=== PATIENT | male | born 1945 | race Caucasian/White ===

== ENCOUNTER 2020-04-25 17:29 | Inpatient (IN) | payer MEDICARE, BC ==
[2020-04-25] MEDS ORDERED: Ondansetron 4 MG/2 ML SDV IVPUSH PRN (17:50)
[2020-04-25] MEDS: Albuterol/Ipratropium 4 GM Inhalation Spray INH SCH ×2 (18:36→22:07)
[2020-04-25] MEDS: Dexamethasone 4 MG Tab PO SCH ×2 (18:36→18:43)
--- NOTE | 2020-04-25 18:40 | PCM.HP.2 ---
<Britany Linton - Last Filed: 04/25/20 18:54> H&P History of Present Illness - General Date of Service: 04/25/20 Admit Problem/Dx: Admission Diagnosis/Problem Admission Diagnosis/Problem Hypoxia Source of Information: Patient History Limitations: Reports: No Limitations - History of Present Illness Initial Comments - Free Text/Narative: Pt is a 74 y/o Gentleman with a PMH of HTN, DM, HLD. and Hypothyroidism. Last week Sunday he was seen In [place] for respiratory symptoms of cough, s.o.b and some chest tightness. Pt was then sent home with 10 days of Dexamethasone, and an inhaler. Over the week, symptoms persisted, the cough kept getting worst described as being productive with yellow much/ phlegm. Denies any fever, chills, body aches. States they has recently visited their teenage grandchildren whom also have been found to be covid +. Pt states his symptoms are worst with laying down and relieved with sitting up. States anything he tried taking was not helping with his cough until he was put on Oxyegn on admission since he was found to be sating at 82-84% on R.A Onset of Symptoms: Reports: Gradual Duration of Symptoms: Reports: Day(s): Severity: Moderate Context: Reports: Sick Contact - Related Data Allergies/Adverse Reactions: Allergies Allergy/AdvReac Type Severity Reaction Status Date / Time No Known Allergies Allergy Verified 04/25/20 17:45 Home Medications: Home Meds Albuterol Sulfate [Albuterol Sulfate Hfa] 2 inh IH Q4H PRN 04/25/20 [History] Codeine/guaiFENesin [Robitussin AC] 04/25/20 [History] Indomethacin 50 mg PO BID 04/25/20 [History] Levothyroxine 25 mcg PO ACBREAKFAST 04/25/20 [History] Metoprolol Succinate [Toprol XL] 25 mg PO DAILY 04/25/20 [History] Niacin 500 mg PO DAILY 04/25/20 [History] dexAMETHasone [Dexamethasone] 2 mg PO DAILY 04/25/20 [History] gemfibroziL [Gemfibrozil] 600 mg PO BID 04/25/20 [History] lisinopriL [Lisinopril] 10 mg PO DAILY 04/25/20 [History] metFORMIN [Glucophage] 500 mg PO BID 04/25/20 [History] Pantoprazole [ProTONIX] 40 mg PO DAILY 04/26/20 [History] Rosuvastatin Calcium 20 mg PO DAILY 04/26/20 [History] Past Medical History Cardiovascular History: Reports: CAD, Heart Valve Replacement, High Cholesterol, Hypertension Gastrointestinal History: Reports: Hepatitis Other Gastrointestinal History: Hepatitis C in 1968 Musculoskeletal History: Reports: Fracture, Other (See Below) Other Musculoskeletal History: Ankle fracture Endocrine/Metabolic History: Reports: Diabetes, Type II, Other (See Below) Other Endocrine/Metabolic History: Borderline Type II Diabetes - 500mg Metformin BID - Infectious Disease History Infectious Disease History: Reports: Chicken Pox, Hepatitis C, Measles - Past Surgical History HEENT Surgical History: Reports: Adenoidectomy, Tonsillectomy Cardiovascular Surgical History: Reports: Coronary Artery Bypass Other Cardiovascular Surgeries/Procedures: Mar 2013 GI Surgical History: Reports: Appendectomy, Colonoscopy, EGD Social & Family History - Tobacco Use Tobacco Use Status *Q: Never Tobacco User Second Hand Smoke Exposure: No - Caffeine Use Caffeine Use: Reports: Coffee - Recreational Drug Use Recreational Drug Use: No H&P Review of Systems - Review of Systems: Review Of Systems: See Below General: Reports: No Symptoms HEENT: Reports: No Symptoms Pulmonary: Reports: Shortness of Breath, Cough, Sputum. Denies: Pleuritic Chest Pain Cardiovascular: Reports: Dyspnea on Exertion. Denies: Chest Pain, Lightheadedness Gastrointestinal: Reports: No Symptoms Genitourinary: Reports: No Symptoms Musculoskeletal: Reports: No Symptoms Skin: Reports: No Symptoms Psychiatric: Reports: No Symptoms Neurological: Reports: No Symptoms Hematologic/Lymphatic: Reports: No Symptoms Immunologic: Reports: No Symptoms Exam - Exam Exam: See Below - Vital Signs Vital Signs: Last Vital Signs Temp 97.5 F 04/25/20 17:34 Pulse 60 04/25/20 17:34 Resp 20 04/25/20 17:34 BP 127/66 04/25/20 17:34 Pulse Ox 90 L 04/25/20 17:34 Weight: 85.275 kg - Exam Quality Assessment: Supplemental Oxygen, DVT Prophylaxis General: Alert, Oriented, Cooperative, Mild Distress HEENT: Conjunctiva Clear, EOMI, Pupils Equal, Pupils Reactive Neck: Supple, Trachea Midline, JVD. No: Lymphadenopathy Lungs: Crackles (fine crackles throughout, good eat entry b/l) Cardiovascular: Regular Rate, Regular Rhythm, Normal S1, Normal S2 GI/Abdominal Exam: Normal Bowel Sounds, Soft, Non-Tender Back Exam: Normal Inspection Extremities: Normal Inspection, Normal Range of Motion, No Pedal Edema, Normal Capillary Refill Peripheral Pulses: 2+: Dorsalis Pedis (L), Dorsalis Pedis (R) Skin: Warm, Dry, Intact Neurological: Cranial Nerves Intact, Reflexes Equal Bilateral, Strength Equal Bilateral, Normal Speech, Sensation Intact. No: Focal Deficit Neuro Extensive - Mental Status: Alert, Oriented x3, Normal Mood/Affect, Normal Cognition Neuro Extensive - Motor, Sensory, Reflexes: CN II-XII Intact, Normal Gait, Normal Reflexes DTR: 2+: Bicep (L), Bicep (R), Patella (L), Patella (R) Psychiatric: Alert, Normal Affect, Normal Mood Sepsis Event Note - Evaluation Sepsis Screening Result: No Definite Risk - Focused Exam Vital Signs: Vital Signs Temp Pulse Resp BP Pulse Ox 04/25/20 17:34 97.5 F 60 20 127/66 90 L - Problem List (1) COVID-19 SNOMED Code(s): 033866937 ICD Code: U07.1 - COVID-19 Status: Acute Current Visit: Yes Problem List Initiated/Reviewed/Updated: Yes Orders Last 24hrs: Active Orders 24 hr Category Date Time Status Patient Status [ADT] Routine ADT 04/25/20 17:51 Active Ambulate [RC] ASDIRECTED Care 04/25/20 17:50 Active Oxygen Therapy [RC] PRN Care 04/25/20 17:51 Active RT Post Treatment Assessment [RC] Click to Edit Care 04/25/20 17:57 Active RT Pre-Treatment Assessment [RC] Click to Edit Care 04/25/20 17:57 Active Telemetry Monitoring [Cardiac Monitoring] [RC] . Care 04/25/20 18:26 Active DIRECTED VTE/DVT Education [RC] PER UNIT ROUTINE Care 04/25/20 17:51 Active Vital Signs [RC] Q4H Care 04/25/20 17:51 Active Heart Healthy Diet [DIET] Diet 04/25/20 Dinner Active CXR [Chest 1V Frontal] [CR] Routine Exams 04/25/20 17:58 Ordered ABO/RH TYPE [BBK] Routine Lab 04/25/20 18:21 Ordered CBC WITH AUTO DIFF [HEME] Stat Lab 04/25/20 17:55 Ordered COMPREHENSIVE METABOLIC PN,CMP [CHEM] Stat Lab 04/25/20 17:55 Ordered D Dimer [D-DIMER QUANTITATIVE] [COAG] Routine Lab 04/25/20 17:56 Ordered FRESH FROZEN PLASMA [BBK] Routine Lab 04/25/20 18:21 Ordered LACTIC ACID,WHOLE BLOOD [BG] Routine Lab 04/25/20 18:23 Ordered MAGNESIUM [CHEM] Stat Lab 04/25/20 17:55 Ordered PHOSPHORUS [CHEM] Stat Lab 04/25/20 17:55 Ordered Acetaminophen [TylenoL] Med 04/25/20 17:50 Active 650 mg PO Q4H PRN Albuterol/Ipratropium [Combivent Respimat] Med 04/25/20 18:00 Active See Dose Instructions INH Q4H Enoxaparin [Lovenox] Med 04/25/20 21:00 Pending 40 mg SUBCUT BEDTIME Levofloxacin/Dextrose 5%-Water [Levaquin in D5W 750 MG/ Med 04/25/20 18:30 Ordered 150 ML] 750 mg Premix Bag 1 bag IV Q24H Ondansetron [Zofran] Med 04/25/20 17:50 Active 4 mg IVPUSH Q4H PRN Remdesivir (Eua) [Remdesivir (EUA)] 100 mg Med 04/26/20 18:45 Ordered Sodium Chloride 0.9% [Normal Saline] 100 ml IV Q24H Remdesivir (Eua) [Remdesivir (EUA)] 200 mg Med 04/25/20 18:30 Ordered Sodium Chloride 0.9% [Normal Saline] 250 ml IV ONETIME dexAMETHasone Med 04/25/20 18:00 Active 6 mg PO DAILY@1800 metFORMIN [Glucophage] Med 04/25/20 21:00 Pending 500 mg PO BID Resuscitation Status Routine Resus Stat 04/25/20 17:50 Ordered Medication Orders Acetaminophen (Tylenol) 650 mg PO Q4H PRN PRN Reason: Pain (Mild 1-3)/fever Albuterol/Ipratropium (Combivent Respimat) 0 gm INH Q4H ANGEL Dexamethasone (Dexamethasone) 6 mg PO DAILY@1800 ANGEL Enoxaparin Sodium (Lovenox) 40 mg SUBCUT BEDTIME ANGEL Levofloxacin/Dextrose 750 mg/ (Premix) 150 mls @ 100 mls/hr IV Q24H ANGEL Remdesivir 200 mg/ Sodium (Chloride) 250 mls @ 250 mls/hr IV ONETIME ONE Stop: 04/25/20 18:31 Remdesivir 100 mg/ Sodium (Chloride) 100 mls @ 100 mls/hr IV Q24H ANGEL Stop: 04/29/20 19:44 Metformin HCl (Glucophage) 500 mg PO BID ANGEL Ondansetron HCl (Zofran) 4 mg IVPUSH Q4H PRN PRN Reason: Nausea/Vomiting Assessment/Plan Comment:: Pt is a 74 y/o M admitted with AHRF 2/2 COVID 19 1. COVID 19: Remdesivir, consented for convalescent plasma, discussed that this is a trial and pt understood the risk and benefits. Will order and transfuse 1 unit today. Dexamethasone 6mg daily for 10 days, Combivent Q4HRTT scheduled, Supplement oxygen with goal >92%, wean as tolerated. Enoxaparin 40mg SubQ Q24H 2. PMHx HTN, HLD, DM and Hypothyroidism, will continue with home medications. Provide patient with Heart healthy diet, Put put on low dose sliding scale and GI ppx with pantoprazole 40mg daily. <Obed Dorman - Last Filed: 04/29/20 23:05> H&P History of Present Illness - General Admit Problem/Dx: Admission Diagnosis/Problem Admission Diagnosis/Problem Hypoxia Exam - Vital Signs Vital Signs: Last Vital Signs Temp 36.3 C 04/29/20 22:00 Pulse 66 04/29/20 20:00 Resp 23 H 04/29/20 22:00 BP 109/64 04/29/20 22:00 Pulse Ox 93 L 04/29/20 22:00 - Patient Data Lab Results Last 24 hrs: Laboratory Results - last 24 hr 04/29/20 04/29/20 04/29/20 Range/Units :11 11:20 06:48 WBC 7.84 (4.0-11.0) K/uL RBC 4.51 (4.50-5.90) M/uL Hgb 13.2 (13.0-17.0) g/dL Hct 38.3 (38.0-50.0) % MCV 84.9 (80.0-98.0) fL MCH 29.3 (27.0-32.0) pg MCHC 34.5 (31.0-37.0) g/dL RDW Std Deviation 41.0 (28.0-62.0) fl RDW Coeff of [place] 13 (11.0-15.0) % Plt Count 208 (150-400) K/uL MPV 8.80 (7.40-12.00) fL Neut % (Auto) 87.4 H (48.0-80.0) % Lymph % (Auto) 6.1 L (16.0-40.0) % [place] % (Auto) 6.4 (0.0-15.0) % Eos % (Auto) 0.1 (0.0-7.0) % Baso % (Auto) 0.0 (0.0-1.5) % Neut # (Auto) 6.9 H (1.4-5.7) K/uL Lymph # (Auto) 0.5 L (0.6-2.4) K/uL [place] # (Auto) 0.5 (0.0-0.8) K/uL Eos # (Auto) 0.0 (0.0-0.7) K/uL Baso # (Auto) 0.0 (0.0-0.1) K/uL Nucleated RBC % 0.0 /100WBC Nucleated RBCs # 0 K/uL ABG pH (7.35-7.45) ABG pCO2 (35-45) mmHG ABG pO2 (75-100) mmHG ABG HCO3 (22-26) mEq/L ABG Total CO2 ABG Base Excess (-2.0-2.0) Sodium 132 L (136-148) mmol/L Potassium 4.4 (3.5-5.1) mmol/L Chloride 98 (98-107) mmol/L Carbon Dioxide 23.0 (21.0-32.0) mmol/L BUN 27 H (7.0-18.0) mg/dL Creatinine 1.2 (0.8-1.3) mg/dL Est Cr Clr Drug Dosing 56.61 mL/min Estimated GFR (MDRD) 59.3 ml/min Glucose 191 H (74-106) mg/dL POC Glucose 163 H (60-110) mg/dL Calcium 9.0 (8.5-10.1) mg/dL Total Bilirubin 0.7 (0.2-1.0) mg/dL AST 11 L (15-37) IU/L ALT 14 (14-63) IU/L Alkaline Phosphatase 61 (46-116) U/L Total Protein 7.3 (6.4-8.2) g/dL Albumin 2.7 L (3.4-5.0) g/dL Globulin 4.6 H (2.6-4.0) g/dL Albumin/Globulin Ratio 0.6 L (0.9-1.6) 04/29/20 04/29/20 04/29/20 Range/Units 11:52 17:14 21:15 WBC (4.0-11.0) K/uL RBC (4.50-5.90) M/uL Hgb (13.0-17.0) g/dL Hct (38.0-50.0) % MCV (80.0-98.0) fL MCH (27.0-32.0) pg MCHC (31.0-37.0) g/dL RDW Std Deviation (28.0-62.0) fl RDW Coeff of Et[place] (11.0-15.0) % Plt Count (150-400) K/uL MPV (7.40-12.00) fL Neut % (Auto) (48.0-80.0) % Lymph % (Auto) (16.0-40.0) % [place] % (Auto) (0.0-15.0) % Eos % (Auto) (0.0-7.0) % Baso % (Auto) (0.0-1.5) % Neut # (Auto) (1.4-5.7) K/uL Lymph # (Auto) (0.6-2.4) K/uL [place] # (Auto) (0.0-0.8) K/uL Eos # (Auto) (0.0-0.7) K/uL Baso # (Auto) (0.0-0.1) K/uL Nucleated RBC % /100WBC Nucleated RBCs # K/uL ABG pH 7.478 H (7.35-7.45) ABG pCO2 28 L (35-45) mmHG ABG pO2 67 L (75-100) mmHG ABG HCO3 21 L (22-26) mEq/L ABG Total CO2 18.3 ABG Base Excess -1.4 (-2.0-2.0) Sodium (136-148) mmol/L Potassium (3.5-5.1) mmol/L Chloride (98-107) mmol/L Carbon Dioxide (21.0-32.0) mmol/L BUN (7.0-18.0) mg/dL Creatinine (0.8-1.3) mg/dL Est Cr Clr Drug Dosing mL/min Estimated GFR (MDRD) ml/min Glucose (74-106) mg/dL POC Glucose 268 H 163 H (60-110) mg/dL Calcium (8.5-10.1) mg/dL Total Bilirubin (0.2-1.0) mg/dL AST (15-37) IU/L ALT (14-63) IU/L Alkaline Phosphatase (46-116) U/L Total Protein (6.4-8.2) g/dL Albumin (3.4-5.0) g/dL Globulin (2.6-4.0) g/dL Albumin/Globulin Ratio (0.9-1.6) Result Diagrams: 04/29/20 05:20 04/29/20 05:20 Sepsis Event Note - Focused Exam Vital Signs: Vital Signs Temp Pulse Resp BP Pulse Ox 04/29/20 22:00 36.3 C 23 H 109/64 93 L 04/29/20 21:30 22 H 100/55 L 92 L 04/29/20 20:00 36.4 C 66 20 122/71 90 L 04/29/20 16:00 36.8 C 59 L 18 106/61 93 L 04/29/20 11:43 36.4 C 58 L 18 114/77 95 Orders Last 24hrs: Active Orders 24 hr Category Date Time Status Transfer Patient (Change bed) [ADT] Routine ADT 04/29/20 20:38 Ordered Cardiac Monitoring [RC] Q8H Care 04/29/20 21:05 Active RT BiPAP/CPAP [RC] ASDIRECTED Care 04/29/20 21:36 Active CBC WITH AUTO DIFF [HEME] AM Lab 04/30/20 05:11 Ordered CBC WITH AUTO DIFF [HEME] AM Lab 05/01/20 05:11 Ordered CBC WITH AUTO DIFF [HEME] AM Lab 05/02/20 05:11 Ordered CBC WITH AUTO DIFF [HEME] AM Lab 05/03/20 05:11 Ordered COMPREHENSIVE METABOLIC PN,CMP [CHEM] AM Lab 04/30/20 05:11 Ordered COMPREHENSIVE METABOLIC PN,CMP [CHEM] AM Lab 05/01/20 05:11 Ordered COMPREHENSIVE METABOLIC PN,CMP [CHEM] AM Lab 05/02/20 05:11 Ordered COMPREHENSIVE METABOLIC PN,CMP [CHEM] AM Lab 05/03/20 05:11 Ordered Pantoprazole [ProTONIX] Med 04/29/20 07:30 Active 40 mg PO ACBREAKFAST Medication Orders Acetaminophen (Tylenol) 650 mg PO Q4H PRN PRN Reason: Pain (Mild 1-3)/fever Last Admin: 04/28/20 17:42 Dose: 650 mg Documented by: DEVIN Albuterol/Ipratropium (Combivent Respimat) 0 gm INH Q4H ANGEL Last Admin: 04/29/20 22:19 Dose: 1 puff Documented by: Admin: 04/29/20 17:06 Dose: 1 puff Documented by: Admin: 04/29/20 13:14 Dose: 1 puff Documented by: Admin: 04/29/20 09:58 Dose: 1 puff Documented by: Admin: 04/29/20 08:49 Dose: 1 puff Documented by: Admin: 04/29/20 06:10 Dose: Not Given Documented by: Admin: 04/29/20 02:12 Dose: 1 puff Documented by: Admin: 04/28/20 22:09 Dose: 1 puff Documented by: Admin: 04/28/20 17:41 Dose: 1 puff Documented by: Admin: 04/28/20 14:08 Dose: 1 puff Documented by: Admin: 04/28/20 09:44 Dose: 1 puff Documented by: Admin: 04/28/20 06:37 Dose: 1 puff Documented by: Admin: 04/28/20 02:56 Dose: 1 puff Documented by: Admin: 04/27/20 21:37 Dose: 1 puff Documented by: Admin: 04/27/20 17:09 Dose: 1 puff Documented by: Admin: 04/27/20 13:17 Dose: 1 puff Documented by: Admin: 04/27/20 09:14 Dose: 1 puff Documented by: Admin: 04/27/20 06:26 Dose: 1 puff Documented by: Admin: 04/27/20 03:25 Dose: 1 puff Documented by: Admin: 04/26/20 23:10 Dose: 1 puff Documented by: Admin: 04/26/20 17:17 Dose: 1 puff Documented by: Admin: 04/26/20 13:47 Dose: 1 puff Documented by: Admin: 04/26/20 09:18 Dose: 1 puff Documented by: Admin: 04/26/20 06:11 Dose: 1 puff Documented by: Admin: 04/26/20 01:40 Dose: Not Given Documented by: Admin: 04/25/20 22:07 Dose: 1 puff Documented by: Admin: 04/25/20 18:36 Dose: 1 puff Documented by: ELIEL Benzonatate (Tessalon Perles) 100 mg PO TID PRN PRN Reason: Cough Last Admin: 04/29/20 20:12 Dose: 100 mg Documented by: Admin: 04/26/20 17:35 Dose: 100 mg Documented by: TIANNA Dexamethasone (Dexamethasone) 6 mg PO DAILY@1800 ANGEL Last Admin: 04/29/20 18:36 Dose: 6 mg Documented by: Admin: 04/28/20 17:39 Dose: 6 mg Documented by: Admin: 04/27/20 18:04 Dose: 6 mg Documented by: Admin: 04/26/20 17:36 Dose: 6 mg Documented by: Admin: 04/25/20 18:43 Dose: Not Given Documented by: ELIEL Dextrose/Water (Dextrose 50% In Water) 50 ml IV ASDIRECTED PRN PRN Reason: Hypoglycemia Enoxaparin Sodium (Lovenox) 40 mg SUBCUT BEDTIME ANGEL Last Admin: 04/29/20 20:12 Dose: 40 mg Documented by: Admin: 04/28/20 20:19 Dose: 40 mg Documented by: Admin: 04/27/20 21:37 Dose: 40 mg Documented by: Admin: 04/26/20 21:00 Dose: 40 mg Documented by: HOLLY Gemfibrozil (Lopid) 600 mg PO BID [facility] Last Admin: 04/29/20 20:11 Dose: 600 mg Documented by: Admin: 04/29/20 09:33 Dose: 600 mg Documented by: Admin: 04/28/20 20:19 Dose: 600 mg Documented by: Admin: 04/28/20 09:28 Dose: 600 mg Documented by: Admin: 04/27/20 21:37 Dose: 600 mg Documented by: Admin: 04/27/20 12:11 Dose: 600 mg Documented by: Admin: 04/26/20 21:01 Dose: 600 mg Documented by: Admin: 04/26/20 09:27 Dose: 600 mg Documented by: BISI Glucagon (Glucagen) 1 mg IM ASDIRECTED PRN PRN Reason: Hypoglycemia Levofloxacin/Dextrose 750 mg/ (Premix) 150 mls @ 100 mls/hr IV Q24H [facility] Admin: 04/29/20 20:08 Dose: 100 mls/hr Documented by: Infusion: 04/28/20 22:13 Dose: 100 mls/hr Documented by: Admin: 04/28/20 20:43 Dose: 100 mls/hr Documented by: Infusion: 04/27/20 23:07 Dose: 100 mls/hr Documented by: Admin: 04/27/20 21:37 Dose: 100 mls/hr Documented by: Infusion: 04/26/20 22:24 Dose: 100 mls/hr Documented by: Admin: 04/26/20 20:54 Dose: 100 mls/hr Documented by: Infusion: 04/25/20 23:34 Dose: 100 mls/hr Documented by: Admin: 04/25/20 22:04 Dose: 100 mls/hr Documented by: RAMOS Insulin Aspart (Novolog) 0 unit SUBCUT TIDAC ANGEL; Protocol Last Admin: 04/29/20 18:39 Dose: 1 unit Documented by: Admin: 04/29/20 13:58 Dose: 3 unit Documented by: Admin: 04/29/20 09:32 Dose: 1 unit Documented by: Admin: 04/28/20 17:38 Dose: Not Given Documented by: Admin: 04/28/20 17:36 Dose: Not Given Documented by: Admin: 04/28/20 09:29 Dose: 1 unit Documented by: Admin: 04/27/20 21:02 Dose: Not Given Documented by: Admin: 04/27/20 11:20 Dose: 1 unit Documented by: Admin: 04/27/20 07:12 Dose: Not Given Documented by: Admin: 04/26/20 19:13 Dose: Not Given Documented by: Admin: 04/26/20 13:09 Dose: 1 unit Documented by: Admin: 04/26/20 09:26 Dose: Not Given Documented by: BISI Levothyroxine Sodium (Levothyroxine) 25 mcg PO ACBREAKFAST [facility] Last Admin: 04/29/20 06:45 Dose: 25 mcg Documented by: Admin: 04/28/20 06:50 Dose: 25 mcg Documented by: Admin: 04/27/20 06:33 Dose: 25 mcg Documented by: HOLLY Lisinopril (Prinivil) 10 mg PO DAILY [facility] Last Admin: 04/29/20 09:33 Dose: 10 mg Documented by: Admin: 04/28/20 09:27 Dose: 10 mg Documented by: Admin: 04/27/20 09:00 Dose: Not Given Documented by: Admin: 04/26/20 09:27 Dose: 10 mg Documented by: BISI Melatonin (Melatonin) 3 mg PO BEDTIME PRN PRN Reason: Sleep Last Admin: 04/29/20 20:11 Dose: 3 mg Documented by: Admin: 04/28/20 22:09 Dose: 3 mg Documented by: BELLO Niacin (Niacin) 500 mg PO DAILY [facility] Last Admin: 04/29/20 09:32 Dose: 500 mg Documented by: Admin: 04/28/20 09:28 Dose: 500 mg Documented by: Admin: 04/27/20 12:11 Dose: 500 mg Documented by: Admin: 04/26/20 12:42 Dose: 500 mg Documented by: BISI Ondansetron HCl (Zofran) 4 mg IVPUSH Q4H PRN PRN Reason: Nausea/Vomiting Pantoprazole Sodium (Protonix) 40 mg PO ACBREAKFAST [facility] Last Admin: 04/29/20 06:45 Dose: 40 mg Documented by: EBLLO Assessment/Plan Comment:: I have seen and examined the patient independently and discussed management plan with the resident, I agree with the residents note unless otherwise specified in my note.
[2020-04-25] MEDS ORDERED: Glucagon,Human Recombinant 1 MG Vial IM PRN (18:59)
[2020-04-25] MEDS ORDERED: 50% Dextrose in Water 50 ML Syringe IV PRN (18:59)
[2020-04-25] MEDS ORDERED: REMDESIVIR 200 MG in Sodium Chloride 0.9% 250 ML IV ONE (19:00)
[2020-04-25 19:23] LABS: CARBON DIOXIDE,CO2 24.3 mmol/L (21.0-32.0); POTASSIUM,K 4.7 mmol/L (3.5-5.1)
[2020-04-25] MEDS ORDERED: Lactated Ringers 1,000 ML IV ONE (19:23)
--- NOTE | 2020-04-25 19:32 | CR ---
Indication: COVID positive, dyspnea Technique: Chest 1 view Comparison: None Findings/Impression: Cardiac size within normal limits. Status post median sternotomy. Patchy opacities at the left lung base and in the right mid and lower lung edwards concerning for infection. No pneumothorax or effusion. No acute osseous abnormality. Dictated by Lara Anderson MD @ Apr 25 2020 7:30PM Signed by Dr. Lara Anderson @ Apr 25 2020 7:31PM
[2020-04-25] MEDS ORDERED: metFORMIN 500 MG Tab PO SCH (21:00)
[2020-04-25] MEDS ORDERED: Enoxaparin 40 MG/0.4 ML Syringe SUBCUT SCH (21:00)
[2020-04-25] MEDS: Levofloxacin/Dextrose 5%-Water 750 MG in Premix Bag 1 BAG IV SCH (22:04)
[2020-04-26] MEDS: Albuterol/Ipratropium 4 GM Inhalation Spray INH SCH ×6 (01:40→23:10)
[2020-04-26 08:52] LABS: BLOOD UREA NITROGEN,BUN 21 mg/dL (7.0-18.0); CARBON DIOXIDE,CO2 28.5 mmol/L (21.0-32.0); CHLORIDE,CL 99 mmol/L (98-107); GLUCOSE RANDOM 120 mg/dL (74-106); POTASSIUM,K 4.7 mmol/L (3.5-5.1); SODIUM,NA 136 mmol/L (136-148)
[2020-04-26] MEDS: Insulin Aspart 100 Units/ML 3 ML Pen SUBCUT SCH ×3 (09:26→19:13)
[2020-04-26] MEDS: Lisinopril 10 MG Tab PO SCH (09:27)
[2020-04-26] MEDS: Gemfibrozil 600 MG Tab PO SCH ×2 (09:27→21:01)
[2020-04-26] MEDS: Metoprolol Succinate 25 MG Tab.ER PO SCH (09:27)
[2020-04-26] MEDS: Niacin 500 MG Tab PO SCH (12:42)
--- NOTE | 2020-04-26 13:10 | PCM.PN ---
- General Info Date of Service: 04/26/20 Admission Dx/Problem (Free Text): Admission Diagnosis/Problem Admission Diagnosis/Problem Hypoxia Subjective Update: Pt is a a 74 y/o M who was transferred yesterday from [place] for COVID 19. Was tested and diagnosed 5 days prior. came in for worsenjing s.o.b and worsening cough. Was sating 80-88 on R.A. Was admitted last night on 9 L oxygen. Was doing well overnight, this morning required additional oxygen when he got up and moving to go to the bathroom. Is scheduled to get 1 unit plasma of convalescent plasma today. States he is feeling the same as yesterday. Functional Status: Reports: New Symptoms - Review of Systems General: Reports: No Symptoms HEENT: Reports: No Symptoms Pulmonary: Reports: No Symptoms Cardiovascular: Reports: No Symptoms Gastrointestinal: Reports: No Symptoms Genitourinary: Reports: No Symptoms Musculoskeletal: Reports: No Symptoms Skin: Reports: No Symptoms Neurological: Reports: No Symptoms Psychiatric: Reports: No Symptoms - Patient Data Vitals - Most Recent: Last Vital Signs Temp 98.1 F 04/26/20 12:39 Pulse 57 L 04/26/20 12:39 Resp 17 04/26/20 12:39 BP 122/64 04/26/20 12:39 Pulse Ox 91 L 04/26/20 12:39 Weight - Most Recent: 188 lb I&O - Last 24 Hours: Intake & Output 04/25/20 04/26/20 04/26/20 22:59 06:59 14:59 Intake Total 2400 Output Total 1675 Balance 725 Lab Results Last 24 Hours: Laboratory Results - last 24 hr 04/25/20 04/25/20 04/25/20 Range/Units 18:46 18:46 18:46 WBC 8.79 (4.0-11.0) K/uL RBC 4.82 (4.50-5.90) M/uL Hgb 14.0 (13.0-17.0) g/dL Hct 41.3 (38.0-50.0) % MCV 85.7 (80.0-98.0) fL MCH 29.0 (27.0-32.0) pg MCHC 33.9 (31.0-37.0) g/dL RDW Std Deviation 42.5 (28.0-62.0) fl RDW Coeff of Etelvina 14 (11.0-15.0) % Plt Count 197 (150-400) K/uL MPV 9.00 (7.40-12.00) fL Neut % (Auto) 92.7 H (48.0-80.0) % Lymph % (Auto) 4.1 L (16.0-40.0) % [place] % (Auto) 3.2 (0.0-15.0) % Eos % (Auto) 0.0 (0.0-7.0) % Baso % (Auto) 0.0 (0.0-1.5) % Neut # (Auto) 8.2 H (1.4-5.7) K/uL Lymph # (Auto) 0.4 L (0.6-2.4) K/uL [place] # (Auto) 0.3 (0.0-0.8) K/uL Eos # (Auto) 0.0 (0.0-0.7) K/uL Baso # (Auto) 0.0 (0.0-0.1) K/uL Nucleated RBC % 0.0 /100WBC Nucleated RBCs # 0 K/uL D-Dimer, Quantitative 0.76 H (0.0-0.50) mg/L FEU Lactate (0.20-2.00) mmol/L Sodium 132 L (136-148) mmol/L Potassium 4.7 (3.5-5.1) mmol/L Chloride 97 L (98-107) mmol/L Carbon Dioxide 24.3 (21.0-32.0) mmol/L BUN 22 H (7.0-18.0) mg/dL Creatinine 1.2 (0.8-1.3) mg/dL Est Cr Clr Drug Dosing 56.61 mL/min Estimated GFR (MDRD) 59.3 ml/min Glucose 234 H (74-106) mg/dL POC Glucose (60-110) mg/dL Calcium 8.8 (8.5-10.1) mg/dL Phosphorus 3.6 (2.6-4.7) mg/dL Magnesium 2.1 (1.8-2.4) mg/dL Total Bilirubin 0.6 (0.2-1.0) mg/dL AST 16 (15-37) IU/L ALT 21 (14-63) IU/L Alkaline Phosphatase 65 (46-116) U/L Troponin I (0.000-0.056) ng/mL Total Protein 7.6 (6.4-8.2) g/dL Albumin 3.2 L (3.4-5.0) g/dL Globulin 4.4 H (2.6-4.0) g/dL Albumin/Globulin Ratio 0.7 L (0.9-1.6) Blood Type 04/25/20 04/25/20 04/25/20 Range/Units 18:46 18:46 18:46 WBC (4.0-11.0) K/uL RBC (4.50-5.90) M/uL Hgb (13.0-17.0) g/dL Hct (38.0-50.0) % MCV (80.0-98.0) fL MCH (27.0-32.0) pg MCHC (31.0-37.0) g/dL RDW Std Deviation (28.0-62.0) fl RDW Coeff of Etelvina (11.0-15.0) % Plt Count (150-400) K/uL MPV (7.40-12.00) fL Neut % (Auto) (48.0-80.0) % Lymph % (Auto) (16.0-40.0) % [place] % (Auto) (0.0-15.0) % Eos % (Auto) (0.0-7.0) % Baso % (Auto) (0.0-1.5) % Neut # (Auto) (1.4-5.7) K/uL Lymph # (Auto) (0.6-2.4) K/uL [place] # (Auto) (0.0-0.8) K/uL Eos # (Auto) (0.0-0.7) K/uL Baso # (Auto) (0.0-0.1) K/uL Nucleated RBC % /100WBC Nucleated RBCs # K/uL D-Dimer, Quantitative (0.0-0.50) mg/L FEU Lactate 2.3 H* (0.20-2.00) mmol/L Sodium (136-148) mmol/L Potassium (3.5-5.1) mmol/L Chloride (98-107) mmol/L Carbon Dioxide (21.0-32.0) mmol/L BUN (7.0-18.0) mg/dL Creatinine (0.8-1.3) mg/dL Est Cr Clr Drug Dosing mL/min Estimated GFR (MDRD) ml/min Glucose (74-106) mg/dL POC Glucose (60-110) mg/dL Calcium (8.5-10.1) mg/dL Phosphorus (2.6-4.7) mg/dL Magnesium (1.8-2.4) mg/dL Total Bilirubin (0.2-1.0) mg/dL AST (15-37) IU/L ALT (14-63) IU/L Alkaline Phosphatase (46-116) U/L Troponin I < 0.050 (0.000-0.056) ng/mL Total Protein (6.4-8.2) g/dL Albumin (3.4-5.0) g/dL Globulin (2.6-4.0) g/dL Albumin/Globulin Ratio (0.9-1.6) Blood Type B POSITIVE 04/25/20 04/26/20 04/26/20 Range/Units 23:25 06:10 08:11 WBC 8.48 (4.0-11.0) K/uL RBC 4.57 (4.50-5.90) M/uL Hgb 13.5 (13.0-17.0) g/dL Hct 39.4 (38.0-50.0) % MCV 86.2 (80.0-98.0) fL MCH 29.5 (27.0-32.0) pg MCHC 34.3 (31.0-37.0) g/dL RDW Std Deviation 42.3 (28.0-62.0) fl RDW Coeff of Etelvina 13 (11.0-15.0) % Plt Count 180 (150-400) K/uL MPV 9.20 (7.40-12.00) fL Neut % (Auto) 82.0 H (48.0-80.0) % Lymph % (Auto) 9.2 L (16.0-40.0) % [place] % (Auto) 8.8 (0.0-15.0) % Eos % (Auto) 0.0 (0.0-7.0) % Baso % (Auto) 0.0 (0.0-1.5) % Neut # (Auto) 7.0 H (1.4-5.7) K/uL Lymph # (Auto) 0.8 (0.6-2.4) K/uL [place] # (Auto) 0.8 (0.0-0.8) K/uL Eos # (Auto) 0.0 (0.0-0.7) K/uL Baso # (Auto) 0.0 (0.0-0.1) K/uL Nucleated RBC % 0.0 /100WBC Nucleated RBCs # 0 K/uL D-Dimer, Quantitative (0.0-0.50) mg/L FEU Lactate 1.9 (0.20-2.00) mmol/L Sodium (136-148) mmol/L Potassium (3.5-5.1) mmol/L Chloride (98-107) mmol/L Carbon Dioxide (21.0-32.0) mmol/L BUN (7.0-18.0) mg/dL Creatinine (0.8-1.3) mg/dL Est Cr Clr Drug Dosing mL/min Estimated GFR (MDRD) ml/min Glucose (74-106) mg/dL POC Glucose 122 H (60-110) mg/dL Calcium (8.5-10.1) mg/dL Phosphorus (2.6-4.7) mg/dL Magnesium (1.8-2.4) mg/dL Total Bilirubin (0.2-1.0) mg/dL AST (15-37) IU/L ALT (14-63) IU/L Alkaline Phosphatase (46-116) U/L Troponin I (0.000-0.056) ng/mL Total Protein (6.4-8.2) g/dL Albumin (3.4-5.0) g/dL Globulin (2.6-4.0) g/dL Albumin/Globulin Ratio (0.9-1.6) Blood Type 04/26/20 Range/Units 08:11 WBC (4.0-11.0) K/uL RBC (4.50-5.90) M/uL Hgb (13.0-17.0) g/dL Hct (38.0-50.0) % MCV (80.0-98.0) fL MCH (27.0-32.0) pg MCHC (31.0-37.0) g/dL RDW Std Deviation (28.0-62.0) fl RDW Coeff of Etelvina (11.0-15.0) % Plt Count (150-400) K/uL MPV (7.40-12.00) fL Neut % (Auto) (48.0-80.0) % Lymph % (Auto) (16.0-40.0) % [place] % (Auto) (0.0-15.0) % Eos % (Auto) (0.0-7.0) % Baso % (Auto) (0.0-1.5) % Neut # (Auto) (1.4-5.7) K/uL Lymph # (Auto) (0.6-2.4) K/uL [place] # (Auto) (0.0-0.8) K/uL Eos # (Auto) (0.0-0.7) K/uL Baso # (Auto) (0.0-0.1) K/uL Nucleated RBC % /100WBC Nucleated RBCs # K/uL D-Dimer, Quantitative (0.0-0.50) mg/L FEU Lactate (0.20-2.00) mmol/L Sodium 136 (136-148) mmol/L Potassium 4.7 (3.5-5.1) mmol/L Chloride 99 (98-107) mmol/L Carbon Dioxide 28.5 (21.0-32.0) mmol/L BUN 21 H (7.0-18.0) mg/dL Creatinine 1.1 (0.8-1.3) mg/dL Est Cr Clr Drug Dosing 61.76 mL/min Estimated GFR (MDRD) > 60.0 ml/min Glucose 120 H (74-106) mg/dL POC Glucose (60-110) mg/dL Calcium 8.9 (8.5-10.1) mg/dL Phosphorus (2.6-4.7) mg/dL Magnesium (1.8-2.4) mg/dL Total Bilirubin 0.6 (0.2-1.0) mg/dL AST 15 (15-37) IU/L ALT 18 (14-63) IU/L Alkaline Phosphatase 65 (46-116) U/L Troponin I (0.000-0.056) ng/mL Total Protein 7.5 (6.4-8.2) g/dL Albumin 3.0 L (3.4-5.0) g/dL Globulin 4.5 H (2.6-4.0) g/dL Albumin/Globulin Ratio 0.7 L (0.9-1.6) Blood Type Med Orders - Current: Current Medications Acetaminophen (Tylenol) 650 mg PO Q4H PRN PRN Reason: Pain (Mild 1-3)/fever Albuterol/Ipratropium (Combivent Respimat) 0 gm INH Q4H [facility] Last Admin: 04/26/20 09:18 Dose: 1 puff Documented by: Dexamethasone (Dexamethasone) 6 mg PO DAILY@1800 [facility] Last Admin: 04/25/20 18:43 Dose: Not Given Documented by: Dextrose/Water (Dextrose 50% In Water) 50 ml IV ASDIRECTED PRN PRN Reason: Hypoglycemia Enoxaparin Sodium (Lovenox) 40 mg SUBCUT BEDTIME [facility] Gemfibrozil (Lopid) 600 mg PO BID [facility] Last Admin: 04/26/20 09:27 Dose: 600 mg Documented by: Glucagon (Glucagen) 1 mg IM ASDIRECTED PRN PRN Reason: Hypoglycemia Levofloxacin/Dextrose 750 mg/ (Premix) 150 mls @ 100 mls/hr IV Q24H [facility] Last Admin: 04/25/20 22:04 Dose: 100 mls/hr Documented by: Remdesivir 100 mg/ Sodium (Chloride) 100 mls @ 100 mls/hr IV Q24H [facility] Stop: 04/29/20 19:59 Insulin Aspart (Novolog) 0 unit SUBCUT TIDAC [facility]; Protocol Last Admin: 04/26/20 09:26 Dose: Not Given Documented by: Levothyroxine Sodium (Levothyroxine) 25 mcg PO ACBREAKFAST [facility] Lisinopril (Prinivil) 10 mg PO DAILY [facility] Last Admin: 04/26/20 09:27 Dose: 10 mg Documented by: Metoprolol Succinate (Toprol Xl) 25 mg PO DAILY [facility] Last Admin: 04/26/20 09:27 Dose: 25 mg Documented by: Niacin (Niacin) 500 mg PO DAILY [facility] Last Admin: 04/26/20 12:42 Dose: 500 mg Documented by: Ondansetron HCl (Zofran) 4 mg IVPUSH Q4H PRN PRN Reason: Nausea/Vomiting Discontinued Medications Enoxaparin Sodium (Lovenox) 40 mg SUBCUT BEDTIME [facility] Stop: 04/25/20 21:01 Last Admin: 04/25/20 22:10 Dose: 40 mg Documented by: Remdesivir 200 mg/ Sodium (Chloride) 250 mls @ 250 mls/hr IV ONETIME ONE Stop: 04/25/20 19:59 Last Admin: 04/25/20 22:06 Dose: 250 mls/hr Documented by: Lactated Ringer's (Ringers, Lactated) 1,000 mls @ 999 mls/hr IV .BOLUS ONE Stop: 04/25/20 20:23 Last Admin: 04/25/20 22:03 Dose: 999 mls/hr Documented by: Metformin HCl (Glucophage) 500 mg PO BID [facility] - Exam Quality Assessment: Supplemental Oxygen, DVT Prophylaxis General: Alert, Oriented, Cooperative HEENT: Pupils Equal, Pupils Reactive, EOMI, Mucous Membr. Moist/[place] Neck: Supple, Trachea Midline. No: No JVD, No Thyromegaly, Lymphadenopathy Lungs: Normal Respiratory Effort, Crackles (noted in the lower lobes bilaterally ) Cardiovascular: Regular Rate, Regular Rhythm, No Murmurs GI/Abdominal Exam: Normal Bowel Sounds, Soft, Non-Tender Extremities: Normal Inspection, Normal Range of Motion, No Pedal Edema, Normal Capillary Refill Peripheral Pulses: 2+: Dorsalis Pedis (L), Dorsalis Pedis (R) Skin: Warm, Dry Neurological: No New Focal Deficit Psy/Mental Status: Alert, Normal Affect, Normal Mood Sepsis Event Note - Evaluation Sepsis Screening Result: No Definite Risk - Focused Exam Vital Signs: Vital Signs Temp Pulse Pulse Resp BP BP Pulse Ox 04/26/20 12:39 98.1 F 57 L 17 122/64 91 L 04/26/20 09:27 60 130/71 04/26/20 08:00 97.2 F 55 L 19 129/72 92 L 04/26/20 04:00 98.1 F 58 L 20 134/87 95 - Problem List & Annotations (1) COVID-19 SNOMED Code(s): 289938900 Code(s): U07.1 - COVID-19 Status: Acute Current Visit: Yes (2) Elevated BUN SNOMED Code(s): 371294712 Code(s): R79.9 - ABNORMAL FINDING OF BLOOD CHEMISTRY, UNSPECIFIED Status: Acute Current Visit: Yes - Problem List Review Problem List Initiated/Reviewed/Updated: Yes - My Orders Last 24 Hours: My Active Orders 04/25/20 18:26 Telemetry Monitoring [Cardiac Monitoring] [RC] Q8H 04/25/20 18:46 ABO/RH TYPE [BBK] Routine FRESH FROZEN PLASMA [BBK] Routine 04/25/20 18:49 Transfuse Fresh Frozen Plasma [COMM] Urgent 04/25/20 18:59 Blood Glucose Check, Bedside [RC] TIDAC Dextrose 50% in Water 50 ml IV ASDIRECTED PRN Glucagon,Human Recombinant [GlucaGen] 1 mg IM ASDIRECTED PRN 04/25/20 20:00 Levofloxacin/Dextrose 5%-Water [Levaquin in D5W 750 MG/150 ML] 750 mg Premix Bag 1 bag IV Q24H 04/26/20 07:30 Insulin Aspart [NovoLOG] See Protocol SUBCUT TIDAC 04/26/20 08:00 Codeine/guaiFENesin [Robitussin AC] DOSE UNIT RTE FREQ 04/26/20 09:00 Metoprolol Succinate [Toprol XL] 25 mg PO DAILY [facility] 500 mg PO DAILY gemfibroziL [Lopid] 600 mg PO BID lisinopriL [Prinivil] 10 mg PO DAILY 04/26/20 19:00 Remdesivir (Eua) [Remdesivir (EUA)] 100 mg Sodium Chloride 0.9% [Normal Salin e] 100 ml IV Q24H 04/27/20 05:11 CBC WITH AUTO DIFF [HEME] AM COMPREHENSIVE METABOLIC PN,CMP [CHEM] AM 04/27/20 07:30 Levothyroxine 25 mcg PO ACBREAKFAST 04/28/20 05:11 CBC WITH AUTO DIFF [HEME] AM COMPREHENSIVE METABOLIC PN,CMP [CHEM] AM 04/29/20 05:11 CBC WITH AUTO DIFF [HEME] AM COMPREHENSIVE METABOLIC PN,CMP [CHEM] AM - Plan Plan:: Pt is a 74 y/o M admitted with [facility] 2/2 COVID 19 1. COVID 19: Remalyseivir, consented for convalescent plasma, discussed that this is a trial and pt understood the risk and benefits. Will order and transfuse 1 unit today. Dexamethasone 6mg daily for 10 days, Combivent Q4HRTT scheduled, Supplement oxygen with goal >92%, wean as tolerated. Enoxaparin 40mg SubQ Q24H. Started on Levaquin yesterday with sloght increased wcb count. WBC's normal today, appears to be afebrile. Will continue to monitor closely. 2. Mild hyponatremia: resolved;136 today 3.Elevated BUN: Improved: 21, continue to monitor daily with a.m cmp. 4. PMHx HTN, HLD, DM and Hypothyroidism, will continue with home medications. Provide patient with Heart healthy diet, Put put on low dose sliding scale and GI ppx with pantoprazole 40mg daily.
[2020-04-26] MEDS: Benzonatate 100 MG Cap PO PRN (17:35)
[2020-04-26] MEDS: Dexamethasone 4 MG Tab PO SCH (17:36)
[2020-04-26] MEDS: REMDESIVIR 100 MG in Sodium Chloride 0.9% 100 ML IV SCH (19:14)
[2020-04-26] MEDS: Levofloxacin/Dextrose 5%-Water 750 MG in Premix Bag 1 BAG IV SCH (20:54)
[2020-04-26] MEDS: Enoxaparin 40 MG/0.4 ML Syringe SUBCUT SCH (21:00)
[2020-04-27] MEDS: Albuterol/Ipratropium 4 GM Inhalation Spray INH SCH ×6 (03:25→21:37)
[2020-04-27] MEDS: Levothyroxine 25 MCG Tab PO SCH (06:33)
[2020-04-27] MEDS: Insulin Aspart 100 Units/ML 3 ML Pen SUBCUT SCH ×3 (07:12→21:02)
[2020-04-27 07:16] LABS: BLOOD UREA NITROGEN,BUN 23 mg/dL (7.0-18.0); CARBON DIOXIDE,CO2 24.4 mmol/L (21.0-32.0); CHLORIDE,CL 98 mmol/L (98-107); GLUCOSE RANDOM 150 mg/dL (74-106); POTASSIUM,K 4.4 mmol/L (3.5-5.1); SODIUM,NA 133 mmol/L (136-148)
[2020-04-27] MEDS: Lisinopril 10 MG Tab PO SCH (09:00)
--- NOTE | 2020-04-27 09:21 | PCM.PN ---
- General Info Date of Service: 04/27/20 Admission Dx/Problem (Free Text): Admission Diagnosis/Problem Admission Diagnosis/Problem Hypoxia Subjective Update: Pt is a a 74 y/o M who was transferred yesterday from [place] for COVID 19 for worsening of s.o.b and cough. Was weaned to 8L yesterday, did doing well overnight. This morning states that he is feeling much better overall. Will get another unit of Convalescent plasma today. Denies any pleuritic chest pain, s.o.b, fever, chills or cough this morning. Functional Status: Reports: Tolerating Diet, Incentive Spirometry. Denies: New Symptoms - Review of Systems General: Reports: No Symptoms HEENT: Reports: No Symptoms Pulmonary: Denies: Shortness of Breath (comfortable on 8 L), Pleuritic Chest Pain, Cough, Wheezing Cardiovascular: Reports: No Symptoms. Denies: Chest Pain, Lightheadedness Gastrointestinal: Reports: No Symptoms Genitourinary: Reports: No Symptoms Musculoskeletal: Reports: No Symptoms Skin: Reports: No Symptoms Neurological: Reports: No Symptoms Psychiatric: Reports: No Symptoms - Patient Data Vitals - Most Recent: Last Vital Signs Temp 97 F 04/27/20 07:11 Pulse 58 L 04/27/20 07:11 Resp 20 04/27/20 07:11 BP 110/59 L 04/27/20 07:11 Pulse Ox 91 L 04/27/20 07:11 Weight - Most Recent: 188 lb I&O - Last 24 Hours: Intake & Output 04/26/20 04/27/20 04/27/20 22:59 06:59 14:59 Intake Total 950 650 Output Total 900 850 Balance 50 -200 Lab Results Last 24 Hours: Laboratory Results - last 24 hr 04/25/20 04/26/20 04/26/20 Range/Units 18:46 08:11 14:02 WBC (4.0-11.0) K/uL RBC (4.50-5.90) M/uL Hgb (13.0-17.0) g/dL Hct (38.0-50.0) % MCV (80.0-98.0) fL MCH (27.0-32.0) pg MCHC (31.0-37.0) g/dL RDW Std Deviation (28.0-62.0) fl RDW Coeff of Etelvina (11.0-15.0) % Plt Count (150-400) K/uL MPV (7.40-12.00) fL Neut % (Auto) (48.0-80.0) % Lymph % (Auto) (16.0-40.0) % [place] % (Auto) (0.0-15.0) % Eos % (Auto) (0.0-7.0) % Baso % (Auto) (0.0-1.5) % Neut # (Auto) (1.4-5.7) K/uL Lymph # (Auto) (0.6-2.4) K/uL [place] # (Auto) (0.0-0.8) K/uL Eos # (Auto) (0.0-0.7) K/uL Baso # (Auto) (0.0-0.1) K/uL Nucleated RBC % /100WBC Nucleated RBCs # K/uL Sodium 136 (136-148) mmol/L Potassium 4.7 (3.5-5.1) mmol/L Chloride 99 (98-107) mmol/L Carbon Dioxide 28.5 (21.0-32.0) mmol/L BUN 21 H (7.0-18.0) mg/dL Creatinine 1.1 (0.8-1.3) mg/dL Est Cr Clr Drug Dosing 61.76 mL/min Estimated GFR (MDRD) > 60.0 ml/min Glucose 120 H (74-106) mg/dL POC Glucose 187 H (60-110) mg/dL Calcium 8.9 (8.5-10.1) mg/dL Total Bilirubin 0.6 (0.2-1.0) mg/dL AST 15 (15-37) IU/L ALT 18 (14-63) IU/L Alkaline Phosphatase 65 (46-116) U/L Total Protein 7.5 (6.4-8.2) g/dL Albumin 3.0 L (3.4-5.0) g/dL Globulin 4.5 H (2.6-4.0) g/dL Albumin/Globulin Ratio 0.7 L (0.9-1.6) Blood Type B POSITIVE 11/02/20 11/03/20 11/03/20 Range/Units 18:40 06:28 06:28 WBC 7.55 (4.0-11.0) K/uL RBC 4.57 (4.50-5.90) M/uL Hgb 13.0 (13.0-17.0) g/dL Hct 39.3 (38.0-50.0) % MCV 86.0 (80.0-98.0) fL MCH 28.4 (27.0-32.0) pg MCHC 33.1 (31.0-37.0) g/dL RDW Std Deviation 42.6 (28.0-62.0) fl RDW Coeff of Etelvina 14 (11.0-15.0) % Plt Count 174 (150-400) K/uL MPV 9.00 (7.40-12.00) fL Neut % (Auto) 82.6 H (48.0-80.0) % Lymph % (Auto) 7.5 L (16.0-40.0) % [place] % (Auto) 9.8 (0.0-15.0) % Eos % (Auto) 0.1 (0.0-7.0) % Baso % (Auto) 0.0 (0.0-1.5) % Neut # (Auto) 6.2 H (1.4-5.7) K/uL Lymph # (Auto) 0.6 (0.6-2.4) K/uL [place] # (Auto) 0.7 (0.0-0.8) K/uL Eos # (Auto) 0.0 (0.0-0.7) K/uL Baso # (Auto) 0.0 (0.0-0.1) K/uL Nucleated RBC % 0.0 /100WBC Nucleated RBCs # 0 K/uL Sodium 133 L (136-148) mmol/L Potassium 4.4 (3.5-5.1) mmol/L Chloride 98 (98-107) mmol/L Carbon Dioxide 24.4 (21.0-32.0) mmol/L BUN 23 H (7.0-18.0) mg/dL Creatinine 1.1 (0.8-1.3) mg/dL Est Cr Clr Drug Dosing 61.76 mL/min Estimated GFR (MDRD) > 60.0 ml/min Glucose 150 H (74-106) mg/dL POC Glucose 114 H (60-110) mg/dL Calcium 8.8 (8.5-10.1) mg/dL Total Bilirubin 0.8 (0.2-1.0) mg/dL AST 19 (15-37) IU/L ALT 19 (14-63) IU/L Alkaline Phosphatase 60 (46-116) U/L Total Protein 7.4 (6.4-8.2) g/dL Albumin 2.9 L (3.4-5.0) g/dL Globulin 4.5 H (2.6-4.0) g/dL Albumin/Globulin Ratio 0.6 L (0.9-1.6) Blood Type Med Orders - Current: Current Medications Acetaminophen (Tylenol) 650 mg PO Q4H PRN PRN Reason: Pain (Mild 1-3)/fever Albuterol/Ipratropium (Combivent Respimat) 0 gm INH Q4H [facility] Last Admin: 04/27/20 06:26 Dose: 1 puff Documented by: Benzonatate (Tessalon Perles) 100 mg PO TID PRN PRN Reason: Cough Last Admin: 04/26/20 17:35 Dose: 100 mg Documented by: Dexamethasone (Dexamethasone) 6 mg PO DAILY@1800 [facility] Last Admin: 04/26/20 17:36 Dose: 6 mg Documented by: Dextrose/Water (Dextrose 50% In Water) 50 ml IV ASDIRECTED PRN PRN Reason: Hypoglycemia Enoxaparin Sodium (Lovenox) 40 mg SUBCUT BEDTIME [facility] Last Admin: 04/26/20 21:00 Dose: 40 mg Documented by: Gemfibrozil (Lopid) 600 mg PO BID [facility] Last Admin: 04/26/20 21:01 Dose: 600 mg Documented by: Glucagon (Glucagen) 1 mg IM ASDIRECTED PRN PRN Reason: Hypoglycemia Levofloxacin/Dextrose 750 mg/ (Premix) 150 mls @ 100 mls/hr IV Q24H [facility] Last Admin: 04/26/20 20:54 Dose: 100 mls/hr Documented by: Remdesivir 100 mg/ Sodium (Chloride) 100 mls @ 100 mls/hr IV Q24H [facility] Stop: 04/29/20 19:59 Last Admin: 11/02/20 19:14 Dose: 100 mls/hr Documented by: Insulin Aspart (Novolog) 0 unit SUBCUT TIDAC [facility]; Protocol Last Admin: 04/27/20 07:12 Dose: Not Given Documented by: Levothyroxine Sodium (Levothyroxine) 25 mcg PO ACBREAKFAST [facility] Last Admin: 04/27/20 06:33 Dose: 25 mcg Documented by: Lisinopril (Prinivil) 10 mg PO DAILY [facility] Last Admin: 04/26/20 09:27 Dose: 10 mg Documented by: Metoprolol Succinate (Toprol Xl) 25 mg PO DAILY [facility] Last Admin: 04/26/20 09:27 Dose: 25 mg Documented by: Niacin (Niacin) 500 mg PO DAILY [facility] Last Admin: 04/26/20 12:42 Dose: 500 mg Documented by: Ondansetron HCl (Zofran) 4 mg IVPUSH Q4H PRN PRN Reason: Nausea/Vomiting Discontinued Medications Enoxaparin Sodium (Lovenox) 40 mg SUBCUT BEDTIME [facility] Stop: 04/25/20 21:01 Last Admin: 04/25/20 22:10 Dose: 40 mg Documented by: Remdesivir 200 mg/ Sodium (Chloride) 250 mls @ 250 mls/hr IV ONETIME ONE Stop: 04/25/20 19:59 Last Admin: 04/25/20 22:06 Dose: 250 mls/hr Documented by: Lactated Ringer's (Ringers, Lactated) 1,000 mls @ 999 mls/hr IV .BOLUS ONE Stop: 04/25/20 20:23 Last Admin: 04/25/20 22:03 Dose: 999 mls/hr Documented by: Metformin HCl (Glucophage) 500 mg PO BID [facility] - Exam Quality Assessment: Supplemental Oxygen (8L) General: Alert, Oriented, Cooperative, No Acute Distress HEENT: Pupils Equal, Pupils Reactive, EOMI, Mucous Membr. Moist/[place] Neck: Supple, Trachea Midline, No JVD Lungs: Crackles (mid- lower lobes). No: Rales, Rhonchi, Stridor, Wheezing Cardiovascular: Regular Rate, Regular Rhythm, No Murmurs GI/Abdominal Exam: Normal Bowel Sounds, Soft, Non-Tender Extremities: Normal Inspection, Normal Range of Motion, No Pedal Edema, Normal Capillary Refill. No: Daron's Sign, Leg Pain, Redness Peripheral Pulses: 2+: Dorsalis Pedis (L), Dorsalis Pedis (R) Skin: Warm, Dry Neurological: No New Focal Deficit Psy/Mental Status: Alert, Normal Affect, Normal Mood Sepsis Event Note - Evaluation Sepsis Screening Result: No Definite Risk - Focused Exam Vital Signs: Vital Signs Temp Pulse Resp BP Pulse Ox 04/27/20 07:11 97 F 58 L 20 110/59 L 91 L 04/27/20 03:19 97 F 55 L 20 108/53 L 97 04/26/20 23:10 98.7 F 58 L 20 122/65 97 - Problem List & Annotations (1) COVID-19 SNOMED Code(s): 468057823 Code(s): U07.1 - COVID-19 Status: Acute Current Visit: Yes (2) Elevated BUN SNOMED Code(s): 696463552 Code(s): R79.9 - ABNORMAL FINDING OF BLOOD CHEMISTRY, UNSPECIFIED Status: Acute Current Visit: Yes - Problem List Review Problem List Initiated/Reviewed/Updated: Yes - My Orders Last 24 Hours: My Active Orders 04/26/20 09:00 Metoprolol Succinate [Toprol XL] 25 mg PO DAILY Niacin 500 mg PO DAILY gemfibroziL [Lopid] 600 mg PO BID lisinopriL [Prinivil] 10 mg PO DAILY 04/26/20 16:07 Benzonatate [Tessalon Perles] 100 mg PO TID PRN 04/26/20 19:00 Remdesivir (Eua) [Remdesivir (EUA)] 100 mg Sodium Chloride 0.9% [Normal Saline] 100 ml IV Q24H 04/27/20 07:30 Levothyroxine 25 mcg PO ACBREAKFAST 04/28/20 05:11 CBC WITH AUTO DIFF [HEME] AM COMPREHENSIVE METABOLIC PN,CMP [CHEM] AM 04/29/20 05:11 CBC WITH AUTO DIFF [HEME] AM COMPREHENSIVE METABOLIC PN,CMP [CHEM] AM - Plan Plan:: Pt is a 74 y/o M admitted with AHRF 2/2 COVID 19 1. COVID 19: Remdesivir, consented for convalescent plasma, discussed that this is a trial and pt understood the risk and benefits. Will order and transfuse 1 unit today. Dexamethasone 6mg daily for 10 days, Combivent Q4HRTT scheduled, Supplement oxygen with goal >92%, wean as tolerated. Enoxaparin 40mg SubQ Q24H. Started on Levaquin yesterday with sloght increased wcb count. WBC's normal today, appears to be afebrile. Will continue to monitor closely. 2. Elevated BUN: 23, continue to monitor daily with a.m cmp. 3. PMHx HTN, HLD, DM and Hypothyroidism, will continue with home medications. Provided patient with Heart healthy diet, Put ut on low dose sliding scale and GI ppx with pantoprazole 40mg daily.
[2020-04-27] MEDS: Metoprolol Succinate 25 MG Tab.ER PO SCH (11:21)
[2020-04-27] MEDS: Gemfibrozil 600 MG Tab PO SCH ×2 (12:11→21:37)
[2020-04-27] MEDS: Niacin 500 MG Tab PO SCH (12:11)
[2020-04-27] MEDS: REMDESIVIR 100 MG in Sodium Chloride 0.9% 100 ML IV SCH (16:25)
[2020-04-27] MEDS: Dexamethasone 4 MG Tab PO SCH (18:04)
[2020-04-27] MEDS: Levofloxacin/Dextrose 5%-Water 750 MG in Premix Bag 1 BAG IV SCH (21:37)
[2020-04-27] MEDS: Enoxaparin 40 MG/0.4 ML Syringe SUBCUT SCH (21:37)
[2020-04-28] MEDS: Albuterol/Ipratropium 4 GM Inhalation Spray INH SCH ×6 (02:56→22:09)
[2020-04-28] MEDS: Levothyroxine 25 MCG Tab PO SCH (06:50)
[2020-04-28 06:51] LABS: CARBON DIOXIDE,CO2 26.5 mmol/L (21.0-32.0); POTASSIUM,K 4.6 mmol/L (3.5-5.1)
[2020-04-28] MEDS: Metoprolol Succinate 25 MG Tab.ER PO SCH (09:27)
[2020-04-28] MEDS: Lisinopril 10 MG Tab PO SCH (09:27)
[2020-04-28] MEDS: Niacin 500 MG Tab PO SCH (09:28)
[2020-04-28] MEDS: Gemfibrozil 600 MG Tab PO SCH ×2 (09:28→20:19)
[2020-04-28] MEDS: Insulin Aspart 100 Units/ML 3 ML Pen SUBCUT SCH ×3 (09:29→17:38)
[2020-04-28] MEDS: Dexamethasone 4 MG Tab PO SCH (17:39)
[2020-04-28] MEDS: Acetaminophen 325 MG Tab PO PRN (17:42)
--- NOTE | 2020-04-28 17:45 | PCM.PN ---
- General Info Date of Service: 04/28/20 Admission Dx/Problem (Free Text): Admission Diagnosis/Problem Admission Diagnosis/Problem Hypoxia Subjective Update: Mason hammond is our 74 y/o M admitted for COVID 19. States he is feeling much better. States he does not el short of breath, the coughing and chest pain have resolved. We continue to wean him down to 5L's nasal cannula today. Functional Status: Reports: Tolerating Diet, Ambulating, Urinating, Incentive Spirometry - Review of Systems General: Reports: No Symptoms HEENT: Reports: No Symptoms Pulmonary: Reports: No Symptoms Cardiovascular: Reports: No Symptoms Gastrointestinal: Reports: No Symptoms Genitourinary: Reports: No Symptoms Musculoskeletal: Reports: No Symptoms Skin: Reports: No Symptoms Neurological: Reports: No Symptoms Psychiatric: Reports: No Symptoms - Patient Data Vitals - Most Recent: Last Vital Signs Temp 97.7 F 04/28/20 11:57 Pulse 61 04/28/20 11:57 Resp 18 04/28/20 11:57 BP 108/68 04/28/20 11:57 Pulse Ox 87 L 04/28/20 11:57 Weight - Most Recent: 188 lb I&O - Last 24 Hours: Intake & Output 04/28/20 04/28/20 04/28/20 06:59 14:59 22:59 Intake Total 1100 1380 Output Total 1000 1450 Balance 100 -70 Lab Results Last 24 Hours: Laboratory Results - last 24 hr 04/25/20 04/27/20 04/28/20 Range/Units 18:46 18:17 06:25 WBC 7.19 (4.0-11.0) K/uL RBC 4.74 (4.50-5.90) M/uL Hgb 13.8 (13.0-17.0) g/dL Hct 40.4 (38.0-50.0) % MCV 85.2 (80.0-98.0) fL MCH 29.1 (27.0-32.0) pg MCHC 34.2 (31.0-37.0) g/dL RDW Std Deviation 41.7 (28.0-62.0) fl RDW Coeff of Etelvina 13 (11.0-15.0) % Plt Count 218 (150-400) K/uL MPV 8.80 (7.40-12.00) fL Neut % (Auto) 86.9 H (48.0-80.0) % Lymph % (Auto) 6.5 L (16.0-40.0) % [place] % (Auto) 6.5 (0.0-15.0) % Eos % (Auto) 0.0 (0.0-7.0) % Baso % (Auto) 0.1 (0.0-1.5) % Neut # (Auto) 6.2 H (1.4-5.7) K/uL Lymph # (Auto) 0.5 L (0.6-2.4) K/uL [place] # (Auto) 0.5 (0.0-0.8) K/uL Eos # (Auto) 0.0 (0.0-0.7) K/uL Baso # (Auto) 0.0 (0.0-0.1) K/uL Nucleated RBC % 0.0 /100WBC Nucleated RBCs # 0 K/uL Sodium (136-148) mmol/L Potassium (3.5-5.1) mmol/L Chloride (98-107) mmol/L Carbon Dioxide (21.0-32.0) mmol/L BUN (7.0-18.0) mg/dL Creatinine (0.8-1.3) mg/dL Est Cr Clr Drug Dosing mL/min Estimated GFR (MDRD) ml/min Glucose (74-106) mg/dL POC Glucose 98 (60-110) mg/dL Calcium (8.5-10.1) mg/dL Total Bilirubin (0.2-1.0) mg/dL AST (15-37) IU/L ALT (14-63) IU/L Alkaline Phosphatase (46-116) U/L Total Protein (6.4-8.2) g/dL Albumin (3.4-5.0) g/dL Globulin (2.6-4.0) g/dL Albumin/Globulin Ratio (0.9-1.6) Blood Type B POSITIVE 04/28/20 04/28/20 04/28/20 Range/Units 06:25 06:48 17:33 WBC (4.0-11.0) K/uL RBC (4.50-5.90) M/uL Hgb (13.0-17.0) g/dL Hct (38.0-50.0) % MCV (80.0-98.0) fL MCH (27.0-32.0) pg MCHC (31.0-37.0) g/dL RDW Std Deviation (28.0-62.0) fl RDW Coeff of Etelvina (11.0-15.0) % Plt Count (150-400) K/uL MPV (7.40-12.00) fL Neut % (Auto) (48.0-80.0) % Lymph % (Auto) (16.0-40.0) % Spencer % (Auto) (0.0-15.0) % Eos % (Auto) (0.0-7.0) % Baso % (Auto) (0.0-1.5) % Neut # (Auto) (1.4-5.7) K/uL Lymph # (Auto) (0.6-2.4) K/uL Spencer # (Auto) (0.0-0.8) K/uL Eos # (Auto) (0.0-0.7) K/uL Baso # (Auto) (0.0-0.1) K/uL Nucleated RBC % /100WBC Nucleated RBCs # K/uL Sodium 133 L (136-148) mmol/L Potassium 4.6 (3.5-5.1) mmol/L Chloride 98 (98-107) mmol/L Carbon Dioxide 26.5 (21.0-32.0) mmol/L BUN 22 H (7.0-18.0) mg/dL Creatinine 1.2 (0.8-1.3) mg/dL Est Cr Clr Drug Dosing 56.61 mL/min Estimated GFR (MDRD) 59.3 ml/min Glucose 177 H (74-106) mg/dL POC Glucose 161 H 126 H (60-110) mg/dL Calcium 9.3 (8.5-10.1) mg/dL Total Bilirubin 0.9 (0.2-1.0) mg/dL AST 14 L (15-37) IU/L ALT 20 (14-63) IU/L Alkaline Phosphatase 66 (46-116) U/L Total Protein 7.9 (6.4-8.2) g/dL Albumin 3.1 L (3.4-5.0) g/dL Globulin 4.8 H (2.6-4.0) g/dL Albumin/Globulin Ratio 0.7 L (0.9-1.6) Blood Type Med Orders - Current: Current Medications Acetaminophen (Tylenol) 650 mg PO Q4H PRN PRN Reason: Pain (Mild 1-3)/fever Albuterol/Ipratropium (Combivent Respimat) 0 gm INH Q4H [facility] Last Admin: 04/28/20 14:08 Dose: 1 puff Documented by: Benzonatate (Tessalon Perles) 100 mg PO TID PRN PRN Reason: Cough Last Admin: 04/26/20 17:35 Dose: 100 mg Documented by: Dexamethasone (Dexamethasone) 6 mg PO DAILY@1800 [facility] Last Admin: 04/28/20 17:39 Dose: 6 mg Documented by: Dextrose/Water (Dextrose 50% In Water) 50 ml IV ASDIRECTED PRN PRN Reason: Hypoglycemia Enoxaparin Sodium (Lovenox) 40 mg SUBCUT BEDTIME [facility] Last Admin: 04/27/20 21:37 Dose: 40 mg Documented by: Gemfibrozil (Lopid) 600 mg PO BID [facility] Last Admin: 04/28/20 09:28 Dose: 600 mg Documented by: Glucagon (Glucagen) 1 mg IM ASDIRECTED PRN PRN Reason: Hypoglycemia Levofloxacin/Dextrose 750 mg/ (Premix) 150 mls @ 100 mls/hr IV Q24H [facility] Last Admin: 04/27/20 21:37 Dose: 100 mls/hr Documented by: Remdesivir 100 mg/ Sodium (Chloride) 100 mls @ 100 mls/hr IV Q24H [facility] Stop: 04/29/20 19:59 Last Admin: 04/27/20 16:25 Dose: 100 mls/hr Documented by: Insulin Aspart (Novolog) 0 unit SUBCUT TIDAC [facility]; Protocol Last Admin: 04/28/20 17:38 Dose: Not Given Documented by: Levothyroxine Sodium (Levothyroxine) 25 mcg PO ACBREAKFAST [facility] Last Admin: 04/28/20 06:50 Dose: 25 mcg Documented by: Lisinopril (Prinivil) 10 mg PO DAILY [facility] Last Admin: 04/28/20 09:27 Dose: 10 mg Documented by: Metoprolol Succinate (Toprol Xl) 25 mg PO DAILY [facility] Last Admin: 04/28/20 09:27 Dose: 25 mg Documented by: Niacin (Niacin) 500 mg PO DAILY [facility] Last Admin: 04/28/20 09:28 Dose: 500 mg Documented by: Ondansetron HCl (Zofran) 4 mg IVPUSH Q4H PRN PRN Reason: Nausea/Vomiting Discontinued Medications Enoxaparin Sodium (Lovenox) 40 mg SUBCUT BEDTIME [facility] Stop: 04/25/20 21:01 Last Admin: 04/25/20 22:10 Dose: 40 mg Documented by: Remdesivir 200 mg/ Sodium (Chloride) 250 mls @ 250 mls/hr IV ONETIME ONE Stop: 04/25/20 19:59 Last Admin: 04/25/20 22:06 Dose: 250 mls/hr Documented by: Lactated Ringer's (Ringers, Lactated) 1,000 mls @ 999 mls/hr IV .BOLUS ONE Stop: 04/25/20 20:23 Last Admin: 04/25/20 22:03 Dose: 999 mls/hr Documented by: Metformin HCl (Glucophage) 500 mg PO BID [facility] - Exam Quality Assessment: Supplemental Oxygen, DVT Prophylaxis General: Alert, Oriented, Cooperative, No Acute Distress HEENT: Pupils Equal, Pupils Reactive, EOMI, Mucous Membr. Moist/[place] Neck: Supple, Trachea Midline, No JVD Lungs: Clear to Auscultation, Normal Respiratory Effort. No: Crackles, Rales, Rhonchi, Rub, Stridor, Wheezing Cardiovascular: Regular Rate, Regular Rhythm, No Murmurs GI/Abdominal Exam: Normal Bowel Sounds, Non-Tender Extremities: Normal Inspection, Normal Range of Motion, No Pedal Edema, Normal Capillary Refill Peripheral Pulses: 2+: Dorsalis Pedis (L), Dorsalis Pedis (R) Skin: Warm, Dry Neurological: No New Focal Deficit Psy/Mental Status: Alert, Normal Affect, Normal Mood Sepsis Event Note - Evaluation Sepsis Screening Result: No Definite Risk - Focused Exam Vital Signs: Vital Signs Temp Pulse Pulse Resp BP BP Pulse Ox 04/28/20 11:57 97.7 F 61 18 108/68 87 L 04/28/20 09:27 82 130/83 04/28/20 08:00 97.2 F 82 18 130/83 88 L - Problem List & Annotations (1) COVID-19 SNOMED Code(s): 422280969 Code(s): U07.1 - COVID-19 Status: Acute Current Visit: Yes (2) Elevated BUN SNOMED Code(s): 091586717 Code(s): R79.9 - ABNORMAL FINDING OF BLOOD CHEMISTRY, UNSPECIFIED Status: Acute Current Visit: Yes - Problem List Review Problem List Initiated/Reviewed/Updated: Yes - My Orders Last 24 Hours: My Active Orders 04/28/20 08:10 May Shower [RC] ASDIRECTED 04/29/20 05:11 CBC WITH AUTO DIFF [HEME] AM COMPREHENSIVE METABOLIC PN,CMP [CHEM] AM - Plan Plan:: Pt is a 74 y/o M admitted with AHRF 2/2 COVID 19 1. COVID 19: Remdesivir, consented for convalescent plasma, discussed that this is a trial and pt understood the risk and benefits. Will order and transfuse 1 unit today. Dexamethasone 6mg daily for 10 days, Combivent Q4HRTT scheduled, Supplement oxygen with goal >92%, currently on 5 L's ; wean as tolerated. Enoxaparin 40mg SubQ Q24H. Continue on Levaquin with increased wcb count. WBC's normal today, appears to be afebrile. Will continue to monitor closely. 2. Elevated BUN: mildly improved 22, continue to monitor daily with a.m cmp. 3. PMHx HTN, HLD, DM and Hypothyroidism, will continue with home medications. Provided patient with Heart healthy diet, on low dose sliding scale and GI ppx with pantoprazole 40mg daily.
[2020-04-28] MEDS: REMDESIVIR 100 MG in Sodium Chloride 0.9% 100 ML IV SCH (19:30)
[2020-04-28] MEDS: Enoxaparin 40 MG/0.4 ML Syringe SUBCUT SCH (20:19)
[2020-04-28] MEDS: Levofloxacin/Dextrose 5%-Water 750 MG in Premix Bag 1 BAG IV SCH (20:43)
[2020-04-28] MEDS: Melatonin 3 MG Tab PO PRN (22:09)
[2020-04-29] MEDS: Albuterol/Ipratropium 4 GM Inhalation Spray INH SCH ×7 (02:12→22:19)
[2020-04-29 05:50] LABS: POTASSIUM,K 4.4 mmol/L (3.5-5.1)
[2020-04-29] MEDS: Pantoprazole 40 MG Tab.CR PO SCH (06:45)
[2020-04-29] MEDS: Levothyroxine 25 MCG Tab PO SCH (06:45)
[2020-04-29] MEDS: Niacin 500 MG Tab PO SCH (09:32)
[2020-04-29] MEDS: Insulin Aspart 100 Units/ML 3 ML Pen SUBCUT SCH ×3 (09:32→18:39)
[2020-04-29] MEDS: Gemfibrozil 600 MG Tab PO SCH ×2 (09:33→20:11)
[2020-04-29] MEDS: Lisinopril 10 MG Tab PO SCH (09:33)
[2020-04-29] MEDS: Metoprolol Succinate 25 MG Tab.ER PO SCH (09:33)
--- NOTE | 2020-04-29 12:35 | PCM.PN ---
- General Info Date of Service: 04/29/20 Admission Dx/Problem (Free Text): Admission Diagnosis/Problem Admission Diagnosis/Problem Hypoxia Subjective Update: Mason De Leon is our 74 y/o M admitted for COVID 19. States he is feeling exhausted, hasn't been able to sleep well since his pulse oximeter kept beeping as he kept desaturating to the 80's. Denies any fever, chills, pleuritic chest pain, or shortness of breath. He state he is just tired and not feeling well today. Feels increased weakness. Due to desaturations we have increased his O2 to 12 L's this morning. Functional Status: Reports: Tolerating Diet, Incentive Spirometry - Review of Systems General: Reports: Weakness, Fatigue. Denies: Chills, Night Sweats HEENT: Reports: No Symptoms Pulmonary: Reports: No Symptoms. Denies: Shortness of Breath, Pleuritic Chest Pain, Cough, Wheezing Cardiovascular: Denies: No Symptoms, Chest Pain Gastrointestinal: Reports: No Symptoms Genitourinary: Reports: No Symptoms Musculoskeletal: Reports: No Symptoms Skin: Reports: No Symptoms Neurological: Reports: No Symptoms Psychiatric: Reports: No Symptoms - Patient Data Vitals - Most Recent: Last Vital Signs Temp 97.5 F 04/29/20 11:43 Pulse 58 L 04/29/20 11:43 Resp 18 04/29/20 11:43 BP 114/77 04/29/20 11:43 Pulse Ox 95 04/29/20 11:43 Weight - Most Recent: 188 lb I&O - Last 24 Hours: Intake & Output 04/28/20 04/29/20 04/29/20 22:59 06:59 14:59 Intake Total 400 1050 Output Total 475 550 Balance -75 500 Lab Results Last 24 Hours: Laboratory Results - last 24 hr 04/28/20 04/29/20 04/29/20 Range/Units 17:33 05:20 05:20 WBC 7.84 (4.0-11.0) K/uL RBC 4.51 (4.50-5.90) M/uL Hgb 13.2 (13.0-17.0) g/dL Hct 38.3 (38.0-50.0) % MCV 84.9 (80.0-98.0) fL MCH 29.3 (27.0-32.0) pg MCHC 34.5 (31.0-37.0) g/dL RDW Std Deviation 41.0 (28.0-62.0) fl RDW Coeff of Etelvina 13 (11.0-15.0) % Plt Count 208 (150-400) K/uL MPV 8.80 (7.40-12.00) fL Neut % (Auto) 87.4 H (48.0-80.0) % Lymph % (Auto) 6.1 L (16.0-40.0) % [place] % (Auto) 6.4 (0.0-15.0) % Eos % (Auto) 0.1 (0.0-7.0) % Baso % (Auto) 0.0 (0.0-1.5) % Neut # (Auto) 6.9 H (1.4-5.7) K/uL Lymph # (Auto) 0.5 L (0.6-2.4) K/uL [place] # (Auto) 0.5 (0.0-0.8) K/uL Eos # (Auto) 0.0 (0.0-0.7) K/uL Baso # (Auto) 0.0 (0.0-0.1) K/uL Nucleated RBC % 0.0 /100WBC Nucleated RBCs # 0 K/uL Sodium 132 L (136-148) mmol/L Potassium 4.4 (3.5-5.1) mmol/L Chloride 98 (98-107) mmol/L Carbon Dioxide 23.0 (21.0-32.0) mmol/L BUN 27 H (7.0-18.0) mg/dL Creatinine 1.2 (0.8-1.3) mg/dL Est Cr Clr Drug Dosing 56.61 mL/min Estimated GFR (MDRD) 59.3 ml/min Glucose 191 H (74-106) mg/dL POC Glucose 126 H (60-110) mg/dL Calcium 9.0 (8.5-10.1) mg/dL Total Bilirubin 0.7 (0.2-1.0) mg/dL AST 11 L (15-37) IU/L ALT 14 (14-63) IU/L Alkaline Phosphatase 61 (46-116) U/L Total Protein 7.3 (6.4-8.2) g/dL Albumin 2.7 L (3.4-5.0) g/dL Globulin 4.6 H (2.6-4.0) g/dL Albumin/Globulin Ratio 0.6 L (0.9-1.6) 04/29/20 04/29/20 Range/Units 06:48 11:52 WBC (4.0-11.0) K/uL RBC (4.50-5.90) M/uL Hgb (13.0-17.0) g/dL Hct (38.0-50.0) % MCV (80.0-98.0) fL MCH (27.0-32.0) pg MCHC (31.0-37.0) g/dL RDW Std Deviation (28.0-62.0) fl RDW Coeff of Etelvina (11.0-15.0) % Plt Count (150-400) K/uL MPV (7.40-12.00) fL Neut % (Auto) (48.0-80.0) % Lymph % (Auto) (16.0-40.0) % [place] % (Auto) (0.0-15.0) % Eos % (Auto) (0.0-7.0) % Baso % (Auto) (0.0-1.5) % Neut # (Auto) (1.4-5.7) K/uL Lymph # (Auto) (0.6-2.4) K/uL [place] # (Auto) (0.0-0.8) K/uL Eos # (Auto) (0.0-0.7) K/uL Baso # (Auto) (0.0-0.1) K/uL Nucleated RBC % /100WBC Nucleated RBCs # K/uL Sodium (136-148) mmol/L Potassium (3.5-5.1) mmol/L Chloride (98-107) mmol/L Carbon Dioxide (21.0-32.0) mmol/L BUN (7.0-18.0) mg/dL Creatinine (0.8-1.3) mg/dL Est Cr Clr Drug Dosing mL/min Estimated GFR (MDRD) ml/min Glucose (74-106) mg/dL POC Glucose 163 H 268 H (60-110) mg/dL Calcium (8.5-10.1) mg/dL Total Bilirubin (0.2-1.0) mg/dL AST (15-37) IU/L ALT (14-63) IU/L Alkaline Phosphatase (46-116) U/L Total Protein (6.4-8.2) g/dL Albumin (3.4-5.0) g/dL Globulin (2.6-4.0) g/dL Albumin/Globulin Ratio (0.9-1.6) Med Orders - Current: Current Medications Acetaminophen (Tylenol) 650 mg PO Q4H PRN PRN Reason: Pain (Mild 1-3)/fever Last Admin: 04/28/20 17:42 Dose: 650 mg Documented by: Albuterol/Ipratropium (Combivent Respimat) 0 gm INH Q4H [facility] Last Admin: 04/29/20 09:58 Dose: 1 puff Documented by: Benzonatate (Tessalon Perles) 100 mg PO TID PRN PRN Reason: Cough Last Admin: 04/26/20 17:35 Dose: 100 mg Documented by: Dexamethasone (Dexamethasone) 6 mg PO DAILY@1800 [facility] Last Admin: 04/28/20 17:39 Dose: 6 mg Documented by: Dextrose/Water (Dextrose 50% In Water) 50 ml IV ASDIRECTED PRN PRN Reason: Hypoglycemia Enoxaparin Sodium (Lovenox) 40 mg SUBCUT BEDTIME [facility] Last Admin: 04/28/20 20:19 Dose: 40 mg Documented by: Gemfibrozil (Lopid) 600 mg PO BID [facility] Last Admin: 04/29/20 09:33 Dose: 600 mg Documented by: Glucagon (Glucagen) 1 mg IM ASDIRECTED PRN PRN Reason: Hypoglycemia Levofloxacin/Dextrose 750 mg/ (Premix) 150 mls @ 100 mls/hr IV Q24H [facility] Last Admin: 04/28/20 20:43 Dose: 100 mls/hr Documented by: Remdesivir 100 mg/ Sodium (Chloride) 100 mls @ 100 mls/hr IV Q24H [facility] Stop: 04/29/20 19:59 Last Admin: 04/28/20 19:30 Dose: 100 mls/hr Documented by: Insulin Aspart (Novolog) 0 unit SUBCUT TIDAC [facility]; Protocol Last Admin: 04/29/20 09:32 Dose: 1 unit Documented by: Levothyroxine Sodium (Levothyroxine) 25 mcg PO ACBREAKFAST [facility] Last Admin: 04/29/20 06:45 Dose: 25 mcg Documented by: Lisinopril (Prinivil) 10 mg PO DAILY [facility] Last Admin: 04/29/20 09:33 Dose: 10 mg Documented by: Melatonin (Melatonin) 3 mg PO BEDTIME PRN PRN Reason: Sleep Last Admin: 04/28/20 22:09 Dose: 3 mg Documented by: Niacin (Niacin) 500 mg PO DAILY [facility] Last Admin: 04/29/20 09:32 Dose: 500 mg Documented by: Ondansetron HCl (Zofran) 4 mg IVPUSH Q4H PRN PRN Reason: Nausea/Vomiting Pantoprazole Sodium (Protonix) 40 mg PO ACBREAKFAST [facility] Last Admin: 04/29/20 06:45 Dose: 40 mg Documented by: Discontinued Medications Enoxaparin Sodium (Lovenox) 40 mg SUBCUT BEDTIME [facility] Stop: 04/25/20 21:01 Last Admin: 04/25/20 22:10 Dose: 40 mg Documented by: Remdesivir 200 mg/ Sodium (Chloride) 250 mls @ 250 mls/hr IV ONETIME ONE Stop: 04/25/20 19:59 Last Admin: 04/25/20 22:06 Dose: 250 mls/hr Documented by: Lactated Ringer's (Ringers, Lactated) 1,000 mls @ 999 mls/hr IV .BOLUS ONE Stop: 04/25/20 20:23 Last Admin: 04/25/20 22:03 Dose: 999 mls/hr Documented by: Metformin HCl (Glucophage) 500 mg PO BID [facility] Metoprolol Succinate (Toprol Xl) 25 mg PO DAILY [facility] Last Admin: 04/29/20 09:33 Dose: 25 mg Documented by: - Exam Quality Assessment: Supplemental Oxygen, DVT Prophylaxis General: Alert, Oriented, Cooperative, No Acute Distress HEENT: Pupils Equal, Pupils Reactive, EOMI, Mucous Membr. Moist/[place] Neck: Supple, No JVD Lungs: Clear to Auscultation, Normal Respiratory Effort Cardiovascular: Regular Rate, Regular Rhythm, No Murmurs GI/Abdominal Exam: Normal Bowel Sounds, Soft, Non-Tender Extremities: Normal Inspection, Normal Range of Motion, No Pedal Edema, Normal Capillary Refill Sepsis Event Note - Evaluation Sepsis Screening Result: No Definite Risk - Focused Exam Vital Signs: Vital Signs Temp Pulse Pulse Resp BP BP Pulse Ox 04/29/20 11:43 97.5 F 58 L 18 114/77 95 04/29/20 09:33 60 106/66 04/29/20 08:55 106/66 04/29/20 08:00 97.1 F 58 L 18 109/46 L 87 L 04/29/20 03:54 97.6 F 56 L 18 111/65 93 L - Problem List & Annotations (1) COVID-19 SNOMED Code(s): 598165876 Code(s): U07.1 - COVID-19 Status: Acute Current Visit: Yes (2) Elevated BUN SNOMED Code(s): 379911791 Code(s): R79.9 - ABNORMAL FINDING OF BLOOD CHEMISTRY, UNSPECIFIED Status: Acute Current Visit: Yes - Problem List Review Problem List Initiated/Reviewed/Updated: Yes - My Orders Last 24 Hours: My Active Orders 04/29/20 07:30 Pantoprazole [ProTONIX] 40 mg PO ACBREAKFAST - Plan Plan:: Pt is a 74 y/o M admitted with AHRF 2/2 COVID 19 1. COVID 19: 5 today Olu, consented for convalescent plasma, discussed that this is a trial and pt understood the risk and benefits. Has received both units. Dexamethasone 6mg daily for 10 days, Combivent Q4HRTT scheduled, Supplement oxygen with goal >92%, currently on 12L's ;will wean as tolerated. Enoxaparin 40mg SubQ Q24H. Continue on Levaquin. WBC's normal today, appears to be afebrile. Will continue to monitor closely. 2. Fatigue: has not slept well, therefore will give melatonin at night 3. Elevated BUN: 27, continue to monitor daily with a.m cmp. 4. PMHx HTN, HLD, DM and Hypothyroidism, will continue with home medications. Provided patient with Heart healthy diet, on low dose sliding scale and GI ppx with pantoprazole 40mg daily.
--- NOTE | 2020-04-29 14:59 | CR ---
INDICATION: Hypoxia. COVID positive. TECHNIQUE: Chest 1 views COMPARISON: 04/25/2020. FINDINGS: Cardiovascular and mediastinum: Heart size and vasculature are normal in caliber and appearance. Lungs and pleural spaces: Ill-defined pulmonary infiltrates are present bilaterally, right lung greater than left. No effusions and no pneumothorax. Bones and soft tissues: No significant findings. IMPRESSION: Slight interval worsening of bilateral pneumonia, worse on the right. Dictated by Raghavendra Morton MD @ Apr 29 2020 2:55PM Signed by Dr. Raghavendra Morton @ Apr 29 2020 2:58PM
[2020-04-29] MEDS: Dexamethasone 4 MG Tab PO SCH (18:36)
[2020-04-29] MEDS: REMDESIVIR 100 MG in Sodium Chloride 0.9% 100 ML IV SCH (18:41)
[2020-04-29] MEDS: Levofloxacin/Dextrose 5%-Water 750 MG in Premix Bag 1 BAG IV SCH (20:08)
[2020-04-29] MEDS: Melatonin 3 MG Tab PO PRN (20:11)
[2020-04-29] MEDS: Benzonatate 100 MG Cap PO PRN (20:12)
[2020-04-29] MEDS: Enoxaparin 40 MG/0.4 ML Syringe SUBCUT SCH (20:12)
--- NOTE | 2020-04-30 01:05 | PCM.SN.2 ---
- Free Text/Narrative Note: Patient desatting to 80s on 15 liters NC. Patient transferred to ICU to initiate noninvasive ventilation. Patient reports feeling better on BIPAP, work of breathing has improved.
[2020-04-30] MEDS: Albuterol/Ipratropium 4 GM Inhalation Spray INH SCH ×6 (01:39→21:28)
[2020-04-30] MEDS: Levothyroxine 25 MCG Tab PO SCH (06:43)
[2020-04-30] MEDS: Pantoprazole 40 MG Tab.CR PO SCH (06:43)
[2020-04-30 06:47] LABS: POTASSIUM,K 4.7 mmol/L (3.5-5.1)
[2020-04-30] MEDS: Insulin Aspart 100 Units/ML 3 ML Pen SUBCUT SCH ×3 (08:34→17:43)
[2020-04-30] MEDS: Gemfibrozil 600 MG Tab PO SCH ×2 (08:37→20:15)
[2020-04-30] MEDS: Lisinopril 10 MG Tab PO SCH (08:37)
[2020-04-30] MEDS: Niacin 500 MG Tab PO SCH (08:40)
--- NOTE | 2020-04-30 09:08 | PCM.PN ---
- General Info Date of Service: 04/30/20 Admission Dx/Problem (Free Text): Admission Diagnosis/Problem Admission Diagnosis/Problem Hypoxia Subjective Update: Mason De Leon is our 74 y/o M admitted for COVID 19. Was transferred last night to the ICU due to increased oxygen needs. Was found to be requiring 15L and still not sating above the 80's. Since transfer was placed on Bipap with significant improvement in his saturations 94-97% on Fi02 80%. Says that he had much better sleep, feels overall more energy. Was very pleasant this morning and more optimistic in comparison to the day prior. Expressed that he was hungry and actually had a appetite this morning. Denies any fever, chills, pleuritic chest pain, or shortness of breath. Functional Status: Reports: Tolerating Diet, Incentive Spirometry - Review of Systems General: Reports: No Symptoms HEENT: Reports: No Symptoms, Glasses Pulmonary: Reports: No Symptoms Cardiovascular: Reports: No Symptoms Gastrointestinal: Reports: No Symptoms Genitourinary: Reports: No Symptoms Musculoskeletal: Reports: No Symptoms Skin: Reports: No Symptoms Neurological: Reports: No Symptoms Psychiatric: Reports: No Symptoms - Patient Data Vitals - Most Recent: Last Vital Signs Temp 98.5 F 04/30/20 05:00 Pulse 66 04/29/20 20:00 Resp 21 H 04/30/20 07:00 BP 117/66 04/30/20 08:37 Pulse Ox 91 L 04/30/20 07:00 Weight - Most Recent: 181 lb 9.6 oz I&O - Last 24 Hours: Intake & Output 04/29/20 04/30/20 04/30/20 22:59 06:59 14:59 Intake Total 920 500 Output Total 500 450 Balance 420 50 Lab Results Last 24 Hours: Laboratory Results - last 24 hr 04/29/20 04/29/20 04/29/20 Range/Units 11:52 17:14 21:15 WBC (4.0-11.0) K/uL RBC (4.50-5.90) M/uL Hgb (13.0-17.0) g/dL Hct (38.0-50.0) % MCV (80.0-98.0) fL MCH (27.0-32.0) pg MCHC (31.0-37.0) g/dL RDW Std Deviation (28.0-62.0) fl RDW Coeff of Etelvina (11.0-15.0) % Plt Count (150-400) K/uL MPV (7.40-12.00) fL Neut % (Auto) (48.0-80.0) % Lymph % (Auto) (16.0-40.0) % [place] % (Auto) (0.0-15.0) % Eos % (Auto) (0.0-7.0) % Baso % (Auto) (0.0-1.5) % Neut # (Auto) (1.4-5.7) K/uL Lymph # (Auto) (0.6-2.4) K/uL [place] # (Auto) (0.0-0.8) K/uL Eos # (Auto) (0.0-0.7) K/uL Baso # (Auto) (0.0-0.1) K/uL Nucleated RBC % /100WBC Nucleated RBCs # K/uL ABG pH 7.478 H (7.35-7.45) ABG pCO2 28 L (35-45) mmHG ABG pO2 67 L (75-100) mmHG ABG HCO3 21 L (22-26) mEq/L ABG Total CO2 18.3 ABG Base Excess -1.4 (-2.0-2.0) Sodium (136-148) mmol/L Potassium (3.5-5.1) mmol/L Chloride (98-107) mmol/L Carbon Dioxide (21.0-32.0) mmol/L BUN (7.0-18.0) mg/dL Creatinine (0.8-1.3) mg/dL Est Cr Clr Drug Dosing mL/min Estimated GFR (MDRD) ml/min Glucose (74-106) mg/dL POC Glucose 268 H 163 H (60-110) mg/dL Calcium (8.5-10.1) mg/dL Total Bilirubin (0.2-1.0) mg/dL AST (15-37) IU/L ALT (14-63) IU/L Alkaline Phosphatase (46-116) U/L Total Protein (6.4-8.2) g/dL Albumin (3.4-5.0) g/dL Globulin (2.6-4.0) g/dL Albumin/Globulin Ratio (0.9-1.6) 04/30/20 04/30/20 04/30/20 Range/Units 05:45 05:45 06:11 WBC 8.37 (4.0-11.0) K/uL RBC 4.77 (4.50-5.90) M/uL Hgb 13.7 (13.0-17.0) g/dL Hct 40.5 (38.0-50.0) % MCV 84.9 (80.0-98.0) fL MCH 28.7 (27.0-32.0) pg MCHC 33.8 (31.0-37.0) g/dL RDW Std Deviation 41.9 (28.0-62.0) fl RDW Coeff of Etelvina 13 (11.0-15.0) % Plt Count 225 (150-400) K/uL MPV 9.20 (7.40-12.00) fL Neut % (Auto) 89.2 H (48.0-80.0) % Lymph % (Auto) 3.7 L (16.0-40.0) % [place] % (Auto) 6.9 (0.0-15.0) % Eos % (Auto) 0.1 (0.0-7.0) % Baso % (Auto) 0.1 (0.0-1.5) % Neut # (Auto) 7.5 H (1.4-5.7) K/uL Lymph # (Auto) 0.3 L (0.6-2.4) K/uL [place] # (Auto) 0.6 (0.0-0.8) K/uL Eos # (Auto) 0.0 (0.0-0.7) K/uL Baso # (Auto) 0.0 (0.0-0.1) K/uL Nucleated RBC % 0.0 /100WBC Nucleated RBCs # 0 K/uL ABG pH (7.35-7.45) ABG pCO2 (35-45) mmHG ABG pO2 (75-100) mmHG ABG HCO3 (22-26) mEq/L ABG Total CO2 ABG Base Excess (-2.0-2.0) Sodium 132 L (136-148) mmol/L Potassium 4.7 (3.5-5.1) mmol/L Chloride 98 (98-107) mmol/L Carbon Dioxide 24.0 (21.0-32.0) mmol/L BUN 31 H (7.0-18.0) mg/dL Creatinine 1.3 (0.8-1.3) mg/dL Est Cr Clr Drug Dosing 52.25 mL/min Estimated GFR (MDRD) 54.1 ml/min Glucose 232 H (74-106) mg/dL POC Glucose 203 H (60-110) mg/dL Calcium 9.1 (8.5-10.1) mg/dL Total Bilirubin 0.8 (0.2-1.0) mg/dL AST 10 L (15-37) IU/L ALT 19 (14-63) IU/L Alkaline Phosphatase 69 (46-116) U/L Total Protein 7.4 (6.4-8.2) g/dL Albumin 2.7 L (3.4-5.0) g/dL Globulin 4.7 H (2.6-4.0) g/dL Albumin/Globulin Ratio 0.6 L (0.9-1.6) Med Orders - Current: Current Medications Acetaminophen (Tylenol) 650 mg PO Q4H PRN PRN Reason: Pain (Mild 1-3)/fever Last Admin: 04/28/20 17:42 Dose: 650 mg Documented by: Albuterol/Ipratropium (Combivent Respimat) 0 gm INH Q4H [facility] Last Admin: 04/30/20 05:43 Dose: 1 puff Documented by: Benzonatate (Tessalon Perles) 100 mg PO TID PRN PRN Reason: Cough Last Admin: 04/29/20 20:12 Dose: 100 mg Documented by: Dexamethasone (Dexamethasone) 6 mg PO DAILY@1800 [facility] Last Admin: 04/29/20 18:36 Dose: 6 mg Documented by: Dextrose/Water (Dextrose 50% In Water) 50 ml IV ASDIRECTED PRN PRN Reason: Hypoglycemia Enoxaparin Sodium (Lovenox) 40 mg SUBCUT BEDTIME [facility] Last Admin: 04/29/20 20:12 Dose: 40 mg Documented by: Gemfibrozil (Lopid) 600 mg PO BID [facility] Last Admin: 04/30/20 08:37 Dose: 600 mg Documented by: Glucagon (Glucagen) 1 mg IM ASDIRECTED PRN PRN Reason: Hypoglycemia Levofloxacin/Dextrose 750 mg/ (Premix) 150 mls @ 100 mls/hr IV Q24H [facility] Last Admin: 04/29/20 20:08 Dose: 100 mls/hr Documented by: Insulin Aspart (Novolog) 0 unit SUBCUT TIDAC [facility]; Protocol Last Admin: 04/30/20 08:34 Dose: 2 unit Documented by: Levothyroxine Sodium (Levothyroxine) 25 mcg PO ACBREAKFAST [facility] Last Admin: 04/30/20 06:43 Dose: 25 mcg Documented by: Lisinopril (Prinivil) 10 mg PO DAILY [facility] Last Admin: 04/30/20 08:37 Dose: 10 mg Documented by: Melatonin (Melatonin) 3 mg PO BEDTIME PRN PRN Reason: Sleep Last Admin: 04/29/20 20:11 Dose: 3 mg Documented by: Niacin (Niacin) 500 mg PO DAILY [facility] Last Admin: 04/30/20 08:40 Dose: 500 mg Documented by: Ondansetron HCl (Zofran) 4 mg IVPUSH Q4H PRN PRN Reason: Nausea/Vomiting Pantoprazole Sodium (Protonix) 40 mg PO ACBREAKFAST [facility] Last Admin: 04/30/20 06:43 Dose: 40 mg Documented by: Discontinued Medications Enoxaparin Sodium (Lovenox) 40 mg SUBCUT BEDTIME [facility] Stop: 04/25/20 21:01 Last Admin: 04/25/20 22:10 Dose: 40 mg Documented by: Remdesivir 200 mg/ Sodium (Chloride) 250 mls @ 250 mls/hr IV ONETIME ONE Stop: 04/25/20 19:59 Last Admin: 04/25/20 22:06 Dose: 250 mls/hr Documented by: Remdesivir 100 mg/ Sodium (Chloride) 100 mls @ 100 mls/hr IV Q24H [facility] Stop: 04/29/20 19:59 Last Admin: 04/29/20 18:41 Dose: 100 mls/hr Documented by: Lactated Ringer's (Ringers, Lactated) 1,000 mls @ 999 mls/hr IV .BOLUS ONE Stop: 04/25/20 20:23 Last Admin: 04/25/20 22:03 Dose: 999 mls/hr Documented by: Metformin HCl (Glucophage) 500 mg PO BID [facility] Metoprolol Succinate (Toprol Xl) 25 mg PO DAILY [facility] Last Admin: 04/29/20 09:33 Dose: 25 mg Documented by: - Exam Quality Assessment: Supplemental Oxygen, DVT Prophylaxis General: Alert, Oriented, Cooperative, No Acute Distress HEENT: Pupils Equal, Pupils Reactive, EOMI, Mucous Membr. Moist/[place] Neck: Supple, Trachea Midline, No JVD, No Thyromegaly Lungs: Clear to Auscultation, Normal Respiratory Effort. No: Decreased Breath Sounds, Crackles, Rales, Rhonchi, Rub, Stridor, Wheezing Cardiovascular: Regular Rate, Regular Rhythm, No Murmurs GI/Abdominal Exam: Normal Bowel Sounds, Soft, Non-Tender, No Organomegaly Extremities: Normal Inspection, Normal Range of Motion, No Pedal Edema, Normal Capillary Refill Peripheral Pulses: 2+: Dorsalis Pedis (L), Dorsalis Pedis (R) Skin: Warm, Dry Wound/Incisions: Healing Well Neurological: No New Focal Deficit Psy/Mental Status: Alert, Normal Affect, Normal Mood Sepsis Event Note - Evaluation Sepsis Screening Result: No Definite Risk - Focused Exam Vital Signs: Vital Signs Temp Resp BP BP Pulse Ox 04/30/20 08:37 117/66 04/30/20 07:00 21 H 118/67 91 L 04/30/20 06:00 18 120/62 97 04/30/20 05:00 98.5 F 23 H 109/59 L 90 L 04/30/20 04:00 18 102/58 L 90 L 04/30/20 03:00 21 H 116/62 98 04/30/20 02:00 20 107/61 94 L 04/30/20 01:00 20 100/57 L 95 04/30/20 00:00 97.7 F 15 99/57 L 93 L 04/29/20 23:00 23 H 98/39 L 95 04/29/20 22:00 97.3 F 23 H 109/64 93 L 04/29/20 21:30 22 H 100/55 L 92 L - Problem List & Annotations (1) COVID-19 SNOMED Code(s): 604943412 Code(s): U07.1 - COVID-19 Status: Acute Current Visit: Yes (2) Elevated BUN SNOMED Code(s): 663440711 Code(s): R79.9 - ABNORMAL FINDING OF BLOOD CHEMISTRY, UNSPECIFIED Status: Acute Current Visit: Yes - Problem List Review Problem List Initiated/Reviewed/Updated: Yes - My Orders Last 24 Hours: My Active Orders 05/01/20 05:11 CBC WITH AUTO DIFF [HEME] AM COMPREHENSIVE METABOLIC PN,CMP [CHEM] AM 05/02/20 05:11 CBC WITH AUTO DIFF [HEME] AM COMPREHENSIVE METABOLIC PN,CMP [CHEM] AM 05/03/20 05:11 CBC WITH AUTO DIFF [HEME] AM COMPREHENSIVE METABOLIC PN,CMP [CHEM] AM - Plan Plan:: Pt is a 74 y/o M admitted with AHRF 2/2 COVID 19 1. COVID 19: Transfered to ICU last night fro increased O2 demands. On Bipap, tolerated it well. This morning also doing well on 15 L NC while eating breakfast. Feels significant improvement in energy. He has completed 5 days of Remdesivir, and 2 units of convalescent plasma. Dexamethasone 6mg daily for 5/10 days, Combivent Q4HRTT scheduled, Supplement oxygen with goal >92%, will wean as tolerated. Enoxaparin 40mg SubQ Q24H. Continue on Levaquin. WBC's 8.4 normal today, appears to be afebrile. Will continue to monitor closely. 2. Fatigue: slept better, will continue to give melatonin at night 3. Elevated BUN: 31, continue to monitor daily with a.m cmp. 4. PMHx HTN, HLD, DM and Hypothyroidism, will continue with home medications. Provided patient with Heart healthy diet, on low dose sliding scale and GI ppx with pantoprazole 40mg daily. I have seen and examined the patient independently and discussed management plan with the resident, I agree with the residents note unless otherwise specified in my note.
[2020-04-30] MEDS: Dexamethasone 4 MG Tab PO SCH (19:13)
[2020-04-30] MEDS: Enoxaparin 40 MG/0.4 ML Syringe SUBCUT SCH (20:15)
[2020-04-30] MEDS: Levofloxacin/Dextrose 5%-Water 750 MG in Premix Bag 1 BAG IV SCH (20:16)
[2020-04-30] MEDS: Benzonatate 100 MG Cap PO PRN (22:18)
[2020-04-30] MEDS: Melatonin 3 MG Tab PO PRN (22:18)
[2020-05-01] MEDS: Albuterol/Ipratropium 4 GM Inhalation Spray INH SCH ×6 (02:20→21:12)
[2020-05-01 06:45] LABS: CARBON DIOXIDE,CO2 26.3 mmol/L (21.0-32.0)
[2020-05-01] MEDS: Pantoprazole 40 MG Tab.CR PO SCH (06:48)
[2020-05-01] MEDS: Levothyroxine 25 MCG Tab PO SCH (06:48)
[2020-05-01] MEDS: Lisinopril 10 MG Tab PO SCH (08:18)
[2020-05-01] MEDS: Niacin 500 MG Tab PO SCH (08:20)
[2020-05-01] MEDS: Insulin Aspart 100 Units/ML 3 ML Pen SUBCUT SCH ×3 (09:13→18:12)
--- NOTE | 2020-05-01 09:18 | PCM.PN ---
- General Info Date of Service: 05/01/20 Subjective Update: Reports feeling well this morning and slept well overnight. Currently on 15 L HFNC. Tolerating oral diet and having bowel movements. - Patient Data Vitals - Most Recent: Last Vital Signs Temp 36.1 C 05/01/20 04:00 Pulse 66 04/29/20 20:00 Resp 15 05/01/20 07:00 BP 113/75 05/01/20 08:18 Pulse Ox 93 L 05/01/20 07:00 Weight - Most Recent: 82.372 kg I&O - Last 24 Hours: Intake & Output 04/30/20 05/01/20 05/01/20 22:59 06:59 14:59 Intake Total 550 750 Output Total 600 650 Balance -50 100 Lab Results Last 24 Hours: Laboratory Results - last 24 hr 04/30/20 04/30/20 05/01/20 Range/Units 12:23 17:05 05:30 WBC 8.43 (4.0-11.0) K/uL RBC 4.87 (4.50-5.90) M/uL Hgb 14.2 (13.0-17.0) g/dL Hct 41.3 (38.0-50.0) % MCV 84.8 (80.0-98.0) fL MCH 29.2 (27.0-32.0) pg MCHC 34.4 (31.0-37.0) g/dL RDW Std Deviation 40.7 (28.0-62.0) fl RDW Coeff of Etelvina 13 (11.0-15.0) % Plt Count 211 (150-400) K/uL MPV 8.80 (7.40-12.00) fL Neut % (Auto) 90.6 H (48.0-80.0) % Lymph % (Auto) 4.2 L (16.0-40.0) % [place] % (Auto) 5.0 (0.0-15.0) % Eos % (Auto) 0.1 (0.0-7.0) % Baso % (Auto) 0.1 (0.0-1.5) % Neut # (Auto) 7.6 H (1.4-5.7) K/uL Lymph # (Auto) 0.4 L (0.6-2.4) K/uL [place] # (Auto) 0.4 (0.0-0.8) K/uL Eos # (Auto) 0.0 (0.0-0.7) K/uL Baso # (Auto) 0.0 (0.0-0.1) K/uL Nucleated RBC % 0.0 /100WBC Nucleated RBCs # 0 K/uL Sodium (136-148) mmol/L Potassium (3.5-5.1) mmol/L Chloride (98-107) mmol/L Carbon Dioxide (21.0-32.0) mmol/L BUN (7.0-18.0) mg/dL Creatinine (0.8-1.3) mg/dL Est Cr Clr Drug Dosing mL/min Estimated GFR (MDRD) ml/min Glucose (74-106) mg/dL POC Glucose 187 H 156 H (60-110) mg/dL Calcium (8.5-10.1) mg/dL Total Bilirubin (0.2-1.0) mg/dL AST (15-37) IU/L ALT (14-63) IU/L Alkaline Phosphatase (46-116) U/L Total Protein (6.4-8.2) g/dL Albumin (3.4-5.0) g/dL Globulin (2.6-4.0) g/dL Albumin/Globulin Ratio (0.9-1.6) 05/01/20 05/01/20 Range/Units 05:30 06:52 WBC (4.0-11.0) K/uL RBC (4.50-5.90) M/uL Hgb (13.0-17.0) g/dL Hct (38.0-50.0) % MCV (80.0-98.0) fL MCH (27.0-32.0) pg MCHC (31.0-37.0) g/dL RDW Std Deviation (28.0-62.0) fl RDW Coeff of Etelvina (11.0-15.0) % Plt Count (150-400) K/uL MPV (7.40-12.00) fL Neut % (Auto) (48.0-80.0) % Lymph % (Auto) (16.0-40.0) % [place] % (Auto) (0.0-15.0) % Eos % (Auto) (0.0-7.0) % Baso % (Auto) (0.0-1.5) % Neut # (Auto) (1.4-5.7) K/uL Lymph # (Auto) (0.6-2.4) K/uL [place] # (Auto) (0.0-0.8) K/uL Eos # (Auto) (0.0-0.7) K/uL Baso # (Auto) (0.0-0.1) K/uL Nucleated RBC % /100WBC Nucleated RBCs # K/uL Sodium 131 L (136-148) mmol/L Potassium 5.0 (3.5-5.1) mmol/L Chloride 97 L (98-107) mmol/L Carbon Dioxide 26.3 (21.0-32.0) mmol/L BUN 25 H (7.0-18.0) mg/dL Creatinine 1.2 (0.8-1.3) mg/dL Est Cr Clr Drug Dosing 56.61 mL/min Estimated GFR (MDRD) 59.3 ml/min Glucose 244 H (74-106) mg/dL POC Glucose 243 H (60-110) mg/dL Calcium 8.9 (8.5-10.1) mg/dL Total Bilirubin 0.8 (0.2-1.0) mg/dL AST 12 L (15-37) IU/L ALT 17 (14-63) IU/L Alkaline Phosphatase 69 (46-116) U/L Total Protein 7.4 (6.4-8.2) g/dL Albumin 2.6 L (3.4-5.0) g/dL Globulin 4.8 H (2.6-4.0) g/dL Albumin/Globulin Ratio 0.5 L (0.9-1.6) Med Orders - Current: Current Medications Acetaminophen (Tylenol) 650 mg PO Q4H PRN PRN Reason: Pain (Mild 1-3)/fever Last Admin: 04/28/20 17:42 Dose: 650 mg Documented by: Albuterol/Ipratropium (Combivent Respimat) 0 gm INH Q4H [facility] Last Admin: 05/01/20 06:50 Dose: 1 puff Documented by: Benzonatate (Tessalon Perles) 100 mg PO TID PRN PRN Reason: Cough Last Admin: 04/30/20 22:18 Dose: 100 mg Documented by: Dexamethasone (Dexamethasone) 6 mg PO DAILY@1800 [facility] Last Admin: 04/30/20 19:13 Dose: 6 mg Documented by: Dextrose/Water (Dextrose 50% In Water) 50 ml IV ASDIRECTED PRN PRN Reason: Hypoglycemia Enoxaparin Sodium (Lovenox) 40 mg SUBCUT BEDTIME [facility] Last Admin: 04/30/20 20:15 Dose: 40 mg Documented by: Gemfibrozil (Lopid) 600 mg PO BID [facility] Last Admin: 04/30/20 20:15 Dose: 600 mg Documented by: Glucagon (Glucagen) 1 mg IM ASDIRECTED PRN PRN Reason: Hypoglycemia Levofloxacin/Dextrose 750 mg/ (Premix) 150 mls @ 100 mls/hr IV Q24H [facility] Last Admin: 04/30/20 20:16 Dose: 100 mls/hr Documented by: Insulin Aspart (Novolog) 0 unit SUBCUT TIDAC [facility]; Protocol Last Admin: 04/30/20 17:43 Dose: 1 unit Documented by: Levothyroxine Sodium (Levothyroxine) 25 mcg PO ACBREAKFAST [facility] Last Admin: 05/01/20 06:48 Dose: 25 mcg Documented by: Lisinopril (Prinivil) 10 mg PO DAILY [facility] Last Admin: 05/01/20 08:18 Dose: 10 mg Documented by: Melatonin (Melatonin) 3 mg PO BEDTIME PRN PRN Reason: Sleep Last Admin: 04/30/20 22:18 Dose: 3 mg Documented by: Niacin (Niacin) 500 mg PO DAILY [facility] Last Admin: 05/01/20 08:20 Dose: 500 mg Documented by: Ondansetron HCl (Zofran) 4 mg IVPUSH Q4H PRN PRN Reason: Nausea/Vomiting Pantoprazole Sodium (Protonix) 40 mg PO ACBREAKFAST [facility] Last Admin: 05/01/20 06:48 Dose: 40 mg Documented by: Discontinued Medications Enoxaparin Sodium (Lovenox) 40 mg SUBCUT BEDTIME [facility] Stop: 04/25/20 21:01 Last Admin: 04/25/20 22:10 Dose: 40 mg Documented by: Remdesivir 200 mg/ Sodium (Chloride) 250 mls @ 250 mls/hr IV ONETIME ONE Stop: 04/25/20 19:59 Last Admin: 04/25/20 22:06 Dose: 250 mls/hr Documented by: Remdesivir 100 mg/ Sodium (Chloride) 100 mls @ 100 mls/hr IV Q24H [facility] Stop: 04/29/20 19:59 Last Admin: 04/29/20 18:41 Dose: 100 mls/hr Documented by: Lactated Ringer's (Ringers, Lactated) 1,000 mls @ 999 mls/hr IV .BOLUS ONE Stop: 04/25/20 20:23 Last Admin: 04/25/20 22:03 Dose: 999 mls/hr Documented by: Metformin HCl (Glucophage) 500 mg PO BID [facility] Metoprolol Succinate (Toprol Xl) 25 mg PO DAILY [facility] Last Admin: 04/29/20 09:33 Dose: 25 mg Documented by: - Exam General: Alert, Oriented, Cooperative, No Acute Distress Lungs: Normal Respiratory Effort, Other (mild rales in bases b/l) Cardiovascular: Regular Rate, Regular Rhythm GI/Abdominal Exam: Normal Bowel Sounds, Soft, Non-Tender, No Distention Extremities: Normal Inspection, No Pedal Edema Sepsis Event Note - Evaluation Sepsis Screening Result: No Definite Risk - Focused Exam Vital Signs: Vital Signs Temp Resp BP BP Pulse Ox 05/01/20 08:18 113/75 05/01/20 07:00 15 124/70 93 L 05/01/20 06:00 18 105/72 93 L 05/01/20 05:00 20 113/60 92 L 05/01/20 04:00 36.1 C 16 117/68 90 L 05/01/20 03:00 19 97/53 L 95 05/01/20 02:00 13 105/60 94 L 05/01/20 01:00 20 97/64 94 L 05/01/20 00:00 36.2 C 18 106/68 93 L 04/30/20 23:00 18 99/43 L 97 04/30/20 22:00 20 102/55 L 93 L - Problem List & Annotations (1) COVID-19 SNOMED Code(s): 989677415 Code(s): U07.1 - COVID-19 Status: Acute Current Visit: Yes (2) Diabetes mellitus SNOMED Code(s): 47896647 Code(s): E11.9 - TYPE 2 DIABETES MELLITUS WITHOUT COMPLICATIONS Status: Acute Current Visit: Yes - Problem List Review Problem List Initiated/Reviewed/Updated: Yes - Plan Plan:: Assessment and Plan: 1. Acute hypoxic respiratory failure secondary to COVID 19: - Patient currently on 15 L HFNC and was BiPAP yesterday. Continue treatment with dexamethasone, PPI, Combivent and Levaquin. Patient completed 5-day course of Remdesivir and received 2 units of convalescent plasma. 2. Diabetes mellitus type II: - ADA diet, Novolog SSI and accuchecks TIDAC. 3. DVT prophylaxis: - Lovenox 40 mg subcut qd. 4. Past medical history of HTN, HLD, hypothyroidism and CAD: - Continue home medications.
[2020-05-01] MEDS: Gemfibrozil 600 MG Tab PO SCH ×2 (10:25→21:09)
[2020-05-01] MEDS: Acetaminophen 325 MG Tab PO PRN (16:05)
[2020-05-01] MEDS: Dexamethasone 4 MG Tab PO SCH (18:11)
[2020-05-01] MEDS: Levofloxacin/Dextrose 5%-Water 750 MG in Premix Bag 1 BAG IV SCH (19:56)
[2020-05-01] MEDS: Benzonatate 100 MG Cap PO PRN (21:09)
[2020-05-01] MEDS: Enoxaparin 40 MG/0.4 ML Syringe SUBCUT SCH (21:09)
[2020-05-01] MEDS: Melatonin 3 MG Tab PO PRN (22:33)
[2020-05-02] MEDS: Albuterol/Ipratropium 4 GM Inhalation Spray INH SCH ×6 (02:00→22:10)
[2020-05-02] MEDS: Pantoprazole 40 MG Tab.CR PO SCH (06:31)
[2020-05-02] MEDS: Levothyroxine 25 MCG Tab PO SCH (06:31)
[2020-05-02 07:08] LABS: CARBON DIOXIDE,CO2 25.9 mmol/L (21.0-32.0)
[2020-05-02] MEDS: Gemfibrozil 600 MG Tab PO SCH ×2 (08:46→20:32)
[2020-05-02] MEDS: Niacin 500 MG Tab PO SCH (08:46)
[2020-05-02] MEDS: Lisinopril 10 MG Tab PO SCH (08:47)
[2020-05-02] MEDS: Insulin Aspart 100 Units/ML 3 ML Pen SUBCUT SCH ×3 (09:13→18:22)
--- NOTE | 2020-05-02 11:32 | PCM.PN ---
<Britany Linton - Last Filed: 05/02/20 11:32> - General Info Date of Service: 05/02/20 Admission Dx/Problem (Free Text): Admission Diagnosis/Problem Admission Diagnosis/Problem Hypoxia Subjective Update: Reports feeling well this morning and had some delay in falling asleep, but eventually the Melatonin helped. Currently on 8 L HFNC. Tolerating oral diet and having bowel movements. However,, dose share that he had a loose bowel movement last, but denies any abdominal pain, nausea, vomiting or changes in appetite. . Functional Status: Reports: Tolerating Diet, Incentive Spirometry - Review of Systems General: Reports: No Symptoms HEENT: Reports: No Symptoms Pulmonary: Reports: No Symptoms Cardiovascular: Reports: No Symptoms Gastrointestinal: Reports: No Symptoms Genitourinary: Reports: No Symptoms Musculoskeletal: Reports: No Symptoms Skin: Reports: No Symptoms Neurological: Reports: No Symptoms Psychiatric: Reports: No Symptoms - Patient Data Vitals - Most Recent: Last Vital Signs Temp 96.7 F L 05/02/20 08:00 Pulse 66 04/29/20 20:00 Resp 17 05/02/20 11:00 BP 114/65 05/02/20 11:00 Pulse Ox 96 05/02/20 11:00 Weight - Most Recent: 82.372 kg I&O - Last 24 Hours: Intake & Output 05/01/20 05/02/20 05/02/20 22:59 06:59 14:59 Intake Total 810 600 Output Total 730 700 Balance 80 -100 Lab Results Last 24 Hours: Laboratory Results - last 24 hr 05/01/20 05/01/20 05/02/20 Range/Units 13:12 17:23 05:55 WBC 9.08 (4.0-11.0) K/uL RBC 5.15 (4.50-5.90) M/uL Hgb 14.8 (13.0-17.0) g/dL Hct 43.6 (38.0-50.0) % MCV 84.7 (80.0-98.0) fL MCH 28.7 (27.0-32.0) pg MCHC 33.9 (31.0-37.0) g/dL RDW Std Deviation 41.2 (28.0-62.0) fl RDW Coeff of Etelvina 13 (11.0-15.0) % Plt Count 233 (150-400) K/uL MPV 8.70 (7.40-12.00) fL Neut % (Auto) 89.9 H (48.0-80.0) % Lymph % (Auto) 4.8 L (16.0-40.0) % [place] % (Auto) 5.3 (0.0-15.0) % Eos % (Auto) 0.0 (0.0-7.0) % Baso % (Auto) 0.0 (0.0-1.5) % Neut # (Auto) 8.2 H (1.4-5.7) K/uL Lymph # (Auto) 0.4 L (0.6-2.4) K/uL [place] # (Auto) 0.5 (0.0-0.8) K/uL Eos # (Auto) 0.0 (0.0-0.7) K/uL Baso # (Auto) 0.0 (0.0-0.1) K/uL Nucleated RBC % 0.0 /100WBC Nucleated RBCs # 0 K/uL Sodium (136-148) mmol/L Potassium (3.5-5.1) mmol/L Chloride (98-107) mmol/L Carbon Dioxide (21.0-32.0) mmol/L BUN (7.0-18.0) mg/dL Creatinine (0.8-1.3) mg/dL Est Cr Clr Drug Dosing mL/min Estimated GFR (MDRD) ml/min Glucose (74-106) mg/dL POC Glucose 283 H 228 H (60-110) mg/dL Calcium (8.5-10.1) mg/dL Total Bilirubin (0.2-1.0) mg/dL AST (15-37) IU/L ALT (14-63) IU/L Alkaline Phosphatase (46-116) U/L Total Protein (6.4-8.2) g/dL Albumin (3.4-5.0) g/dL Globulin (2.6-4.0) g/dL Albumin/Globulin Ratio (0.9-1.6) 05/02/20 05/02/20 Range/Units 05:55 06:29 WBC (4.0-11.0) K/uL RBC (4.50-5.90) M/uL Hgb (13.0-17.0) g/dL Hct (38.0-50.0) % MCV (80.0-98.0) fL MCH (27.0-32.0) pg MCHC (31.0-37.0) g/dL RDW Std Deviation (28.0-62.0) fl RDW Coeff of Etelvina (11.0-15.0) % Plt Count (150-400) K/uL MPV (7.40-12.00) fL Neut % (Auto) (48.0-80.0) % Lymph % (Auto) (16.0-40.0) % [place] % (Auto) (0.0-15.0) % Eos % (Auto) (0.0-7.0) % Baso % (Auto) (0.0-1.5) % Neut # (Auto) (1.4-5.7) K/uL Lymph # (Auto) (0.6-2.4) K/uL [place] # (Auto) (0.0-0.8) K/uL Eos # (Auto) (0.0-0.7) K/uL Baso # (Auto) (0.0-0.1) K/uL Nucleated RBC % /100WBC Nucleated RBCs # K/uL Sodium 132 L (136-148) mmol/L Potassium 5.0 (3.5-5.1) mmol/L Chloride 98 (98-107) mmol/L Carbon Dioxide 25.9 (21.0-32.0) mmol/L BUN 25 H (7.0-18.0) mg/dL Creatinine 1.2 (0.8-1.3) mg/dL Est Cr Clr Drug Dosing 56.61 mL/min Estimated GFR (MDRD) 59.3 ml/min Glucose 234 H (74-106) mg/dL POC Glucose 221 H (60-110) mg/dL Calcium 9.3 (8.5-10.1) mg/dL Total Bilirubin 0.8 (0.2-1.0) mg/dL AST 16 (15-37) IU/L ALT 16 (14-63) IU/L Alkaline Phosphatase 74 (46-116) U/L Total Protein 7.8 (6.4-8.2) g/dL Albumin 2.7 L (3.4-5.0) g/dL Globulin 5.1 H (2.6-4.0) g/dL Albumin/Globulin Ratio 0.5 L (0.9-1.6) Med Orders - Current: Current Medications Acetaminophen (Tylenol) 650 mg PO Q4H PRN PRN Reason: Pain (Mild 1-3)/fever Last Admin: 05/01/20 16:05 Dose: 650 mg Documented by: Albuterol/Ipratropium (Combivent Respimat) 0 gm INH Q4H [facility] Last Admin: 05/02/20 09:15 Dose: 1 puff Documented by: Benzonatate (Tessalon Perles) 100 mg PO TID PRN PRN Reason: Cough Last Admin: 05/01/20 21:09 Dose: 100 mg Documented by: Dexamethasone (Dexamethasone) 6 mg PO DAILY@1800 [facility] Last Admin: 05/01/20 18:11 Dose: 6 mg Documented by: Dextrose/Water (Dextrose 50% In Water) 50 ml IV ASDIRECTED PRN PRN Reason: Hypoglycemia Enoxaparin Sodium (Lovenox) 40 mg SUBCUT BEDTIME [facility] Last Admin: 05/01/20 21:09 Dose: 40 mg Documented by: Gemfibrozil (Lopid) 600 mg PO BID [facility] Last Admin: 05/02/20 08:46 Dose: 600 mg Documented by: Glucagon (Glucagen) 1 mg IM ASDIRECTED PRN PRN Reason: Hypoglycemia Levofloxacin/Dextrose 750 mg/ (Premix) 150 mls @ 100 mls/hr IV Q24H [facility] Last Admin: 05/01/20 19:56 Dose: 100 mls/hr Documented by: Insulin Aspart (Novolog) 0 unit SUBCUT TIDAC [facility]; Protocol Last Admin: 05/02/20 09:13 Dose: 2 unit Documented by: Levothyroxine Sodium (Levothyroxine) 25 mcg PO ACBREAKFAST [facility] Last Admin: 05/02/20 06:31 Dose: 25 mcg Documented by: Lisinopril (Prinivil) 10 mg PO DAILY [facility] Last Admin: 05/02/20 08:47 Dose: 10 mg Documented by: Melatonin (Melatonin) 3 mg PO BEDTIME PRN PRN Reason: Sleep Last Admin: 05/01/20 22:33 Dose: 3 mg Documented by: Niacin (Niacin) 500 mg PO DAILY [facility] Last Admin: 05/02/20 08:46 Dose: 500 mg Documented by: Ondansetron HCl (Zofran) 4 mg IVPUSH Q4H PRN PRN Reason: Nausea/Vomiting Pantoprazole Sodium (Protonix) 40 mg PO ACBREAKFAST [facility] Last Admin: 05/02/20 06:31 Dose: 40 mg Documented by: Discontinued Medications Enoxaparin Sodium (Lovenox) 40 mg SUBCUT BEDTIME [facility] Stop: 04/25/20 21:01 Last Admin: 04/25/20 22:10 Dose: 40 mg Documented by: Remdesivir 200 mg/ Sodium (Chloride) 250 mls @ 250 mls/hr IV ONETIME ONE Stop: 04/25/20 19:59 Last Admin: 04/25/20 22:06 Dose: 250 mls/hr Documented by: Remdesivir 100 mg/ Sodium (Chloride) 100 mls @ 100 mls/hr IV Q24H [facility] Stop: 04/29/20 19:59 Last Admin: 04/29/20 18:41 Dose: 100 mls/hr Documented by: Lactated Ringer's (Ringers, Lactated) 1,000 mls @ 999 mls/hr IV .BOLUS ONE Stop: 04/25/20 20:23 Last Admin: 04/25/20 22:03 Dose: 999 mls/hr Documented by: Metformin HCl (Glucophage) 500 mg PO BID [facility] Metoprolol Succinate (Toprol Xl) 25 mg PO DAILY [facility] Last Admin: 04/29/20 09:33 Dose: 25 mg Documented by: - Exam Quality Assessment: Supplemental Oxygen, DVT Prophylaxis General: Alert, Oriented, Cooperative, No Acute Distress HEENT: Pupils Equal, Pupils Reactive, EOMI, Mucous Membr. Moist/[place] Neck: Supple, No JVD Lungs: Clear to Auscultation, Normal Respiratory Effort Cardiovascular: Regular Rate, Regular Rhythm, No Murmurs GI/Abdominal Exam: Normal Bowel Sounds, Soft, Non-Tender, No Distention. No: Guarding, Rigid, Rebound, Tender Extremities: Normal Inspection, Normal Range of Motion, No Pedal Edema, Normal Capillary Refill Peripheral Pulses: 2+: Radial (L), Radial (R), Dorsalis Pedis (L), Dorsalis Pedis (R) Skin: Warm, Dry, Intact Neurological: No New Focal Deficit Psy/Mental Status: Alert, Normal Affect, Normal Mood Sepsis Event Note - Evaluation Sepsis Screening Result: No Definite Risk - Focused Exam Vital Signs: Vital Signs Temp Resp BP BP Pulse Ox 05/02/20 11:00 17 114/65 96 05/02/20 10:00 16 109/64 94 L 05/02/20 09:00 25 H 116/73 93 L 05/02/20 08:47 128/61 05/02/20 08:00 96.7 F L 19 119/62 95 05/02/20 07:00 21 H 122/87 96 05/02/20 06:00 18 104/66 94 L 05/02/20 04:00 97.2 F 19 93/54 L 96 05/02/20 03:00 22 H 106/51 L 95 05/02/20 02:00 21 H 104/52 L 94 L 05/02/20 01:00 25 H 109/52 L 94 L 05/02/20 00:00 97.2 F 23 H 103/69 92 L - Problem List & Annotations (1) COVID-19 SNOMED Code(s): 438609620 Code(s): U07.1 - COVID-19 Status: Acute Current Visit: Yes (2) Elevated BUN SNOMED Code(s): 854212602 Code(s): R79.9 - ABNORMAL FINDING OF BLOOD CHEMISTRY, UNSPECIFIED Status: Acute Current Visit: Yes - Problem List Review Problem List Initiated/Reviewed/Updated: Yes - My Orders Last 24 Hours: My Active Orders 05/03/20 05:11 CBC WITH AUTO DIFF [HEME] AM COMPREHENSIVE METABOLIC PN,CMP [CHEM] AM - Plan Plan:: Assessment and Plan: 1. Acute hypoxic respiratory failure secondary to COVID 19: - Patient currently on 8 L HFNC today. Continue to wean as tolerated. Continue treatment with dexamethasone, PPI, Combivent and Levaquin. Patient completed 5- day course of Remdesivir and received 2 units of convalescent plasma. 2.Elevated BUN: Stable; continue to monitor with daily cmp. 3. Diabetes mellitus type II: - ADA diet, Novolog SSI and accuchecks TIDAC. 4. DVT prophylaxis: - Lovenox 40 mg subcut qd. 5. Past medical history of HTN, HLD, hypothyroidism and CAD: - Continue home medications. <Obed Dorman - Last Filed: 05/05/20 11:38> - General Info Admission Dx/Problem (Free Text): I have seen and evaluated the patient and agree with the residents note unless specified in my note - Patient Data Vitals - Most Recent: Last Vital Signs Temp 36.0 C L 05/05/20 08:55 Pulse 85 05/05/20 08:55 Resp 20 05/05/20 08:55 BP 114/79 05/05/20 08:55 Pulse Ox 92 L 05/05/20 08:55 I&O - Last 24 Hours: Intake & Output 05/04/20 05/05/20 05/05/20 22:59 06:59 14:59 Intake Total 480 650 Output Total 900 600 Balance -420 50 Lab Results Last 24 Hours: Laboratory Results - last 24 hr 05/04/20 05/04/20 05/04/20 Range/Units 12:08 12:25 17:32 WBC (4.0-11.0) K/uL RBC (4.50-5.90) M/uL Hgb (13.0-17.0) g/dL Hct (38.0-50.0) % MCV (80.0-98.0) fL MCH (27.0-32.0) pg MCHC (31.0-37.0) g/dL RDW Std Deviation (28.0-62.0) fl RDW Coeff of Etelvina (11.0-15.0) % Plt Count (150-400) K/uL MPV (7.40-12.00) fL Neut % (Auto) (48.0-80.0) % Lymph % (Auto) (16.0-40.0) % [place] % (Auto) (0.0-15.0) % Eos % (Auto) (0.0-7.0) % Baso % (Auto) (0.0-1.5) % Neut # (Auto) (1.4-5.7) K/uL Lymph # (Auto) (0.6-2.4) K/uL [place] # (Auto) (0.0-0.8) K/uL Eos # (Auto) (0.0-0.7) K/uL Baso # (Auto) (0.0-0.1) K/uL Nucleated RBC % /100WBC Nucleated RBCs # K/uL Sodium (136-148) mmol/L Potassium (3.5-5.1) mmol/L Chloride (98-107) mmol/L Carbon Dioxide (21.0-32.0) mmol/L BUN (7.0-18.0) mg/dL Creatinine (0.8-1.3) mg/dL Est Cr Clr Drug Dosing mL/min Estimated GFR (MDRD) ml/min Glucose (74-106) mg/dL POC Glucose 329 H 394 H (60-110) mg/dL Calcium (8.5-10.1) mg/dL Phosphorus (2.6-4.7) mg/dL Magnesium 2.4 (1.8-2.4) mg/dL Total Bilirubin (0.2-1.0) mg/dL AST (15-37) IU/L ALT (14-63) IU/L Alkaline Phosphatase (46-116) U/L Total Protein (6.4-8.2) g/dL Albumin (3.4-5.0) g/dL Globulin (2.6-4.0) g/dL Albumin/Globulin Ratio (0.9-1.6) 05/05/20 05/05/20 05/05/20 Range/Units 06:25 06:25 06:25 WBC 14.20 H (4.0-11.0) K/uL RBC 5.29 (4.50-5.90) M/uL Hgb 15.4 (13.0-17.0) g/dL Hct 44.3 (38.0-50.0) % MCV 83.7 (80.0-98.0) fL MCH 29.1 (27.0-32.0) pg MCHC 34.8 (31.0-37.0) g/dL RDW Std Deviation 39.5 (28.0-62.0) fl RDW Coeff of Etelvina 13 (11.0-15.0) % Plt Count 210 (150-400) K/uL MPV 8.90 (7.40-12.00) fL Neut % (Auto) 85.3 H (48.0-80.0) % Lymph % (Auto) 7.0 L (16.0-40.0) % [place] % (Auto) 7.5 (0.0-15.0) % Eos % (Auto) 0.1 (0.0-7.0) % Baso % (Auto) 0.1 (0.0-1.5) % Neut # (Auto) 12.1 H (1.4-5.7) K/uL Lymph # (Auto) 1.0 (0.6-2.4) K/uL [place] # (Auto) 1.1 H (0.0-0.8) K/uL Eos # (Auto) 0.0 (0.0-0.7) K/uL Baso # (Auto) 0.0 (0.0-0.1) K/uL Nucleated RBC % 0.0 /100WBC Nucleated RBCs # 0 K/uL Sodium 132 L (136-148) mmol/L Potassium 4.2 (3.5-5.1) mmol/L Chloride 96 L (98-107) mmol/L Carbon Dioxide 26.2 (21.0-32.0) mmol/L BUN 35 H (7.0-18.0) mg/dL Creatinine 1.4 H (0.8-1.3) mg/dL Est Cr Clr Drug Dosing 48.52 mL/min Estimated GFR (MDRD) 49.7 ml/min Glucose 238 H (74-106) mg/dL POC Glucose (60-110) mg/dL Calcium 9.1 (8.5-10.1) mg/dL Phosphorus 3.8 (2.6-4.7) mg/dL Magnesium 2.4 (1.8-2.4) mg/dL Total Bilirubin 0.8 (0.2-1.0) mg/dL AST 13 L (15-37) IU/L ALT 25 (14-63) IU/L Alkaline Phosphatase 70 (46-116) U/L Total Protein 7.5 (6.4-8.2) g/dL Albumin 2.8 L (3.4-5.0) g/dL Globulin 4.7 H (2.6-4.0) g/dL Albumin/Globulin Ratio 0.6 L (0.9-1.6) 05/05/20 Range/Units 06:39 WBC (4.0-11.0) K/uL RBC (4.50-5.90) M/uL Hgb (13.0-17.0) g/dL Hct (38.0-50.0) % MCV (80.0-98.0) fL MCH (27.0-32.0) pg MCHC (31.0-37.0) g/dL RDW Std Deviation (28.0-62.0) fl RDW Coeff of Etelvina (11.0-15.0) % Plt Count (150-400) K/uL MPV (7.40-12.00) fL Neut % (Auto) (48.0-80.0) % Lymph % (Auto) (16.0-40.0) % [place] % (Auto) (0.0-15.0) % Eos % (Auto) (0.0-7.0) % Baso % (Auto) (0.0-1.5) % Neut # (Auto) (1.4-5.7) K/uL Lymph # (Auto) (0.6-2.4) K/uL [place] # (Auto) (0.0-0.8) K/uL Eos # (Auto) (0.0-0.7) K/uL Baso # (Auto) (0.0-0.1) K/uL Nucleated RBC % /100WBC Nucleated RBCs # K/uL Sodium (136-148) mmol/L Potassium (3.5-5.1) mmol/L Chloride (98-107) mmol/L Carbon Dioxide (21.0-32.0) mmol/L BUN (7.0-18.0) mg/dL Creatinine (0.8-1.3) mg/dL Est Cr Clr Drug Dosing mL/min Estimated GFR (MDRD) ml/min Glucose (74-106) mg/dL POC Glucose 264 H (60-110) mg/dL Calcium (8.5-10.1) mg/dL Phosphorus (2.6-4.7) mg/dL Magnesium (1.8-2.4) mg/dL Total Bilirubin (0.2-1.0) mg/dL AST (15-37) IU/L ALT (14-63) IU/L Alkaline Phosphatase (46-116) U/L Total Protein (6.4-8.2) g/dL Albumin (3.4-5.0) g/dL Globulin (2.6-4.0) g/dL Albumin/Globulin Ratio (0.9-1.6) Med Orders - Current: Current Medications Acetaminophen (Tylenol) 650 mg PO Q4H PRN PRN Reason: Pain (Mild 1-3)/fever Last Admin: 05/01/20 16:05 Dose: 650 mg Documented by: Albuterol/Ipratropium (Combivent Respimat) 0 gm INH Q4H [facility] Last Admin: 05/05/20 09:24 Dose: 1 puff Documented by: Benzonatate (Tessalon Perles) 100 mg PO TID PRN PRN Reason: Cough Last Admin: 05/05/20 08:53 Dose: 100 mg Documented by: Dextrose/Water (Dextrose 50% In Water) 50 ml IV ASDIRECTED PRN PRN Reason: Hypoglycemia Enoxaparin Sodium (Lovenox) 40 mg SUBCUT BEDTIME [facility] Last Admin: 05/04/20 20:11 Dose: 40 mg Documented by: Gemfibrozil (Lopid) 600 mg PO BID [facility] Last Admin: 05/05/20 08:52 Dose: 600 mg Documented by: Glucagon (Glucagen) 1 mg IM ASDIRECTED PRN PRN Reason: Hypoglycemia Guaifenesin/Codeine Phosphate (Robitussin Ac) 5 ml PO Q4H PRN PRN Reason: Cough Insulin Aspart (Novolog) 0 unit SUBCUT TIDAC [facility]; Protocol Last Admin: 05/05/20 08:50 Dose: 9 units Documented by: Levothyroxine Sodium (Levothyroxine) 25 mcg PO ACBREAKFAST [facility] Last Admin: 05/05/20 06:31 Dose: 25 mcg Documented by: Ondansetron HCl (Zofran) 4 mg IVPUSH Q4H PRN PRN Reason: Nausea/Vomiting Pantoprazole Sodium (Protonix) 40 mg PO ACBREAKFAST [facility] Last Admin: 05/05/20 06:31 Dose: 40 mg Documented by: Rosuvastatin Calcium (Crestor) 20 mg PO DAILY [facility] Last Admin: 05/05/20 08:52 Dose: 20 mg Documented by: Sodium Chloride (Saline Flush) 10 ml FLUSH Q4H PRN PRN Reason: maintain IV patency Last Admin: 05/04/20 06:54 Dose: 10 ml Documented by: Discontinued Medications Dexamethasone (Dexamethasone) 6 mg PO DAILY@1800 [facility] Last Admin: 05/03/20 17:51 Dose: 6 mg Documented by: Dexamethasone (Dexamethasone) 6 mg PO DAILY@1000 [facility] Last Admin: 05/05/20 09:03 Dose: 6 mg Documented by: Enoxaparin Sodium (Lovenox) 40 mg SUBCUT BEDTIME [facility] Stop: 04/25/20 21:01 Last Admin: 04/25/20 22:10 Dose: 40 mg Documented by: Furosemide (Lasix) 40 mg IVPUSH NOW ONE Stop: 05/02/20 12:34 Last Admin: 05/02/20 13:12 Dose: 40 mg Documented by: Furosemide (Lasix) 20 mg IVPUSH ONETIME ONE Stop: 05/04/20 09:43 Last Admin: 05/04/20 09:57 Dose: 20 mg Documented by: Levofloxacin/Dextrose 750 mg/ (Premix) 150 mls @ 100 mls/hr IV Q24H [facility] Last Admin: 05/04/20 20:10 Dose: 80 mls/hr Documented by: Remdesivir 200 mg/ Sodium (Chloride) 250 mls @ 250 mls/hr IV ONETIME ONE Stop: 04/25/20 19:59 Last Admin: 04/25/20 22:06 Dose: 250 mls/hr Documented by: Remdesivir 100 mg/ Sodium (Chloride) 100 mls @ 100 mls/hr IV Q24H [facility] Stop: 04/29/20 19:59 Last Admin: 04/29/20 18:41 Dose: 100 mls/hr Documented by: Lactated Ringer's (Ringers, Lactated) 1,000 mls @ 999 mls/hr IV .BOLUS ONE Stop: 04/25/20 20:23 Last Admin: 04/25/20 22:03 Dose: 999 mls/hr Documented by: Lactated Ringer's (Ringers, Lactated) 1,000 mls @ 999 mls/hr IV .BOLUS ONE Stop: 05/03/20 00:37 Last Admin: 05/02/20 23:49 Dose: 999 mls/hr Documented by: Insulin Aspart (Novolog) 0 unit SUBCUT TIDAC [facility]; Protocol Last Admin: 05/03/20 09:15 Dose: 5 units Documented by: Lisinopril (Prinivil) 10 mg PO DAILY [facility] Last Admin: 05/03/20 09:20 Dose: 10 mg Documented by: Lorazepam (Ativan) 1 mg IVPUSH BEDTIME ONE Stop: 05/04/20 22:21 Last Admin: 05/04/20 21:19 Dose: 1 mg Documented by: Melatonin (Melatonin) 3 mg PO BEDTIME PRN PRN Reason: Sleep Last Admin: 05/03/20 22:19 Dose: 3 mg Documented by: Metformin HCl (Glucophage) 500 mg PO BID [facility] Metoprolol Succinate (Toprol Xl) 25 mg PO DAILY [facility] Last Admin: 04/29/20 09:33 Dose: 25 mg Documented by: Niacin (Niacin) 500 mg PO DAILY [facility] Last Admin: 05/03/20 09:19 Dose: 500 mg Documented by: Sepsis Event Note - Focused Exam Vital Signs: Vital Signs Temp Pulse Resp BP Pulse Ox 05/05/20 08:55 36.0 C L 85 20 114/79 92 L 05/05/20 03:42 36.1 C 84 20 119/67 95 05/05/20 00:00 76 20 96
[2020-05-02] MEDS ORDERED: Furosemide 40 MG/4 ML VIAL IVPUSH ONE (12:33)
[2020-05-02] MEDS: Dexamethasone 4 MG Tab PO SCH (18:38)
[2020-05-02] MEDS: Levofloxacin/Dextrose 5%-Water 750 MG in Premix Bag 1 BAG IV SCH ×2 (19:42→20:27)
[2020-05-02] MEDS: Benzonatate 100 MG Cap PO PRN (20:34)
[2020-05-02] MEDS: Enoxaparin 40 MG/0.4 ML Syringe SUBCUT SCH (20:34)
[2020-05-02] MEDS: Melatonin 3 MG Tab PO PRN (22:48)
[2020-05-02] MEDS ORDERED: Lactated Ringers 1,000 ML IV ONE (23:37)
[2020-05-03] MEDS: Albuterol/Ipratropium 4 GM Inhalation Spray INH SCH ×6 (02:05→22:07)
[2020-05-03] MEDS: Levothyroxine 25 MCG Tab PO SCH (06:31)
[2020-05-03] MEDS: Pantoprazole 40 MG Tab.CR PO SCH (06:31)
[2020-05-03] MEDS: Benzonatate 100 MG Cap PO PRN (06:31)
[2020-05-03 06:32] LABS: CARBON DIOXIDE,CO2 23.9 mmol/L (21.0-32.0); POTASSIUM,K 4.6 mmol/L (3.5-5.1)
[2020-05-03] MEDS: Insulin Aspart 100 Units/ML 3 ML Pen SUBCUT SCH ×3 (09:15→17:09)
[2020-05-03] MEDS: Rosuvastatin 10 MG Tab PO SCH (09:18)
[2020-05-03] MEDS: Niacin 500 MG Tab PO SCH (09:19)
[2020-05-03] MEDS: Lisinopril 10 MG Tab PO SCH (09:20)
--- NOTE | 2020-05-03 09:20 | PCM.PN ---
<Britany Linton - Last Filed: 05/03/20 09:15> - General Info Date of Service: 05/03/20 Admission Dx/Problem (Free Text): Admission Diagnosis/Problem Admission Diagnosis/Problem Hypoxia Subjective Update: Last night had an episode of hypotensive after getting Lasix 40mg, was given a bolus of 500 LR helping resume to normotension. Reports feeling well this morning and. currently resting in bed on 10 L HFNC. Tolerating oral diet and having normal bowel movements. Denies any fever, chills, cough, sob, chest pain, abdominal pain, nausea, vomiting or changes in appetite. All questions and concerns were addressed at bedside. Functional Status: Reports: Tolerating Diet, Incentive Spirometry - Review of Systems General: Reports: No Symptoms HEENT: Reports: No Symptoms Pulmonary: Reports: No Symptoms Cardiovascular: Reports: No Symptoms Gastrointestinal: Reports: No Symptoms Genitourinary: Reports: No Symptoms Musculoskeletal: Reports: No Symptoms Skin: Reports: No Symptoms Neurological: Reports: No Symptoms Psychiatric: Reports: No Symptoms - Patient Data Vitals - Most Recent: Last Vital Signs Temp 97.0 F 05/03/20 04:00 Pulse 66 04/29/20 20:00 Resp 15 05/03/20 07:00 BP 107/68 05/03/20 07:00 Pulse Ox 92 L 05/03/20 07:00 Weight - Most Recent: 82.372 kg I&O - Last 24 Hours: Intake & Output 05/02/20 05/03/20 05/03/20 22:59 06:59 14:59 Intake Total 750 900 Output Total 1425 650 Balance -675 250 Lab Results Last 24 Hours: Laboratory Results - last 24 hr 05/02/20 05/02/20 05/02/20 Range/Units 05:55 13:09 18:19 WBC (4.0-11.0) K/uL RBC (4.50-5.90) M/uL Hgb (13.0-17.0) g/dL Hct (38.0-50.0) % MCV (80.0-98.0) fL MCH (27.0-32.0) pg MCHC (31.0-37.0) g/dL RDW Std Deviation (28.0-62.0) fl RDW Coeff of [place] (11.0-15.0) % Plt Count (150-400) K/uL MPV (7.40-12.00) fL Neut % (Auto) (48.0-80.0) % Lymph % (Auto) (16.0-40.0) % [place] % (Auto) (0.0-15.0) % Eos % (Auto) (0.0-7.0) % Baso % (Auto) (0.0-1.5) % Neut # (Auto) (1.4-5.7) K/uL Lymph # (Auto) (0.6-2.4) K/uL [place] # (Auto) (0.0-0.8) K/uL Eos # (Auto) (0.0-0.7) K/uL Baso # (Auto) (0.0-0.1) K/uL Nucleated RBC % /100WBC Nucleated RBCs # K/uL Sodium (136-148) mmol/L Potassium (3.5-5.1) mmol/L Chloride (98-107) mmol/L Carbon Dioxide (21.0-32.0) mmol/L BUN (7.0-18.0) mg/dL Creatinine (0.8-1.3) mg/dL Est Cr Clr Drug Dosing mL/min Estimated GFR (MDRD) ml/min Glucose (74-106) mg/dL POC Glucose 185 H 215 H (60-110) mg/dL Calcium (8.5-10.1) mg/dL Phosphorus 3.7 (2.6-4.7) mg/dL Magnesium 2.5 H (1.8-2.4) mg/dL Total Bilirubin (0.2-1.0) mg/dL AST (15-37) IU/L ALT (14-63) IU/L Alkaline Phosphatase (46-116) U/L Total Protein (6.4-8.2) g/dL Albumin (3.4-5.0) g/dL Globulin (2.6-4.0) g/dL Albumin/Globulin Ratio (0.9-1.6) 05/03/20 05/03/20 05/03/20 Range/Units 05:50 05:50 05:50 WBC 10.08 (4.0-11.0) K/uL RBC 5.12 (4.50-5.90) M/uL Hgb 14.8 (13.0-17.0) g/dL Hct 43.5 (38.0-50.0) % MCV 85.0 (80.0-98.0) fL MCH 28.9 (27.0-32.0) pg MCHC 34.0 (31.0-37.0) g/dL RDW Std Deviation 41.5 (28.0-62.0) fl RDW Coeff of [place] 13 (11.0-15.0) % Plt Count 178 (150-400) K/uL MPV 8.80 (7.40-12.00) fL Neut % (Auto) 92.6 H (48.0-80.0) % Lymph % (Auto) 4.3 L (16.0-40.0) % [place] % (Auto) 3.1 (0.0-15.0) % Eos % (Auto) 0.0 (0.0-7.0) % Baso % (Auto) 0.0 (0.0-1.5) % Neut # (Auto) 9.3 H (1.4-5.7) K/uL Lymph # (Auto) 0.4 L (0.6-2.4) K/uL [place] # (Auto) 0.3 (0.0-0.8) K/uL Eos # (Auto) 0.0 (0.0-0.7) K/uL Baso # (Auto) 0.0 (0.0-0.1) K/uL Nucleated RBC % 0.0 /100WBC Nucleated RBCs # 0 K/uL Sodium 130 L (136-148) mmol/L Potassium 4.6 (3.5-5.1) mmol/L Chloride 97 L (98-107) mmol/L Carbon Dioxide 23.9 (21.0-32.0) mmol/L BUN 38 H (7.0-18.0) mg/dL Creatinine 1.5 H (0.8-1.3) mg/dL Est Cr Clr Drug Dosing 45.29 mL/min Estimated GFR (MDRD) 45.9 ml/min Glucose 354 H (74-106) mg/dL POC Glucose (60-110) mg/dL Calcium 8.9 (8.5-10.1) mg/dL Phosphorus 3.5 (2.6-4.7) mg/dL Magnesium 2.5 H (1.8-2.4) mg/dL Total Bilirubin 0.7 (0.2-1.0) mg/dL AST 14 L (15-37) IU/L ALT 20 (14-63) IU/L Alkaline Phosphatase 71 (46-116) U/L Total Protein 7.4 (6.4-8.2) g/dL Albumin 2.6 L (3.4-5.0) g/dL Globulin 4.8 H (2.6-4.0) g/dL Albumin/Globulin Ratio 0.5 L (0.9-1.6) 05/03/20 Range/Units 06:30 WBC (4.0-11.0) K/uL RBC (4.50-5.90) M/uL Hgb (13.0-17.0) g/dL Hct (38.0-50.0) % MCV (80.0-98.0) fL MCH (27.0-32.0) pg MCHC (31.0-37.0) g/dL RDW Std Deviation (28.0-62.0) fl RDW Coeff of [place] (11.0-15.0) % Plt Count (150-400) K/uL MPV (7.40-12.00) fL Neut % (Auto) (48.0-80.0) % Lymph % (Auto) (16.0-40.0) % [place] % (Auto) (0.0-15.0) % Eos % (Auto) (0.0-7.0) % Baso % (Auto) (0.0-1.5) % Neut # (Auto) (1.4-5.7) K/uL Lymph # (Auto) (0.6-2.4) K/uL [place] # (Auto) (0.0-0.8) K/uL Eos # (Auto) (0.0-0.7) K/uL Baso # (Auto) (0.0-0.1) K/uL Nucleated RBC % /100WBC Nucleated RBCs # K/uL Sodium (136-148) mmol/L Potassium (3.5-5.1) mmol/L Chloride (98-107) mmol/L Carbon Dioxide (21.0-32.0) mmol/L BUN (7.0-18.0) mg/dL Creatinine (0.8-1.3) mg/dL Est Cr Clr Drug Dosing mL/min Estimated GFR (MDRD) ml/min Glucose (74-106) mg/dL POC Glucose 351 H (60-110) mg/dL Calcium (8.5-10.1) mg/dL Phosphorus (2.6-4.7) mg/dL Magnesium (1.8-2.4) mg/dL Total Bilirubin (0.2-1.0) mg/dL AST (15-37) IU/L ALT (14-63) IU/L Alkaline Phosphatase (46-116) U/L Total Protein (6.4-8.2) g/dL Albumin (3.4-5.0) g/dL Globulin (2.6-4.0) g/dL Albumin/Globulin Ratio (0.9-1.6) Med Orders - Current: Current Medications Acetaminophen (Tylenol) 650 mg PO Q4H PRN PRN Reason: Pain (Mild 1-3)/fever Last Admin: 05/01/20 16:05 Dose: 650 mg Documented by: Albuterol/Ipratropium (Combivent Respimat) 0 gm INH Q4H [facility] Last Admin: 05/03/20 05:53 Dose: 1 puff Documented by: Benzonatate (Tessalon Perles) 100 mg PO TID PRN PRN Reason: Cough Last Admin: 05/03/20 06:31 Dose: 100 mg Documented by: Dexamethasone (Dexamethasone) 6 mg PO DAILY@1800 [facility] Last Admin: 05/02/20 18:38 Dose: 6 mg Documented by: Dextrose/Water (Dextrose 50% In Water) 50 ml IV ASDIRECTED PRN PRN Reason: Hypoglycemia Enoxaparin Sodium (Lovenox) 40 mg SUBCUT BEDTIME [facility] Last Admin: 05/02/20 20:34 Dose: 40 mg Documented by: Gemfibrozil (Lopid) 600 mg PO BID [facility] Last Admin: 05/02/20 20:32 Dose: 600 mg Documented by: Glucagon (Glucagen) 1 mg IM ASDIRECTED PRN PRN Reason: Hypoglycemia Levofloxacin/Dextrose 750 mg/ (Premix) 150 mls @ 100 mls/hr IV Q24H [facility] Last Infusion: 05/02/20 20:27 Dose: 80 mls/hr Documented by: Insulin Aspart (Novolog) 0 unit SUBCUT TIDAC [facility]; Protocol Last Admin: 05/02/20 18:22 Dose: 2 unit Documented by: Levothyroxine Sodium (Levothyroxine) 25 mcg PO ACBREAKFAST [facility] Last Admin: 05/03/20 06:31 Dose: 25 mcg Documented by: Lisinopril (Prinivil) 10 mg PO DAILY [facility] Last Admin: 05/02/20 08:47 Dose: 10 mg Documented by: Melatonin (Melatonin) 3 mg PO BEDTIME PRN PRN Reason: Sleep Last Admin: 05/02/20 22:48 Dose: 3 mg Documented by: Niacin (Niacin) 500 mg PO DAILY [facility] Last Admin: 05/02/20 08:46 Dose: 500 mg Documented by: Ondansetron HCl (Zofran) 4 mg IVPUSH Q4H PRN PRN Reason: Nausea/Vomiting Pantoprazole Sodium (Protonix) 40 mg PO ACBREAKFAST [facility] Last Admin: 05/03/20 06:31 Dose: 40 mg Documented by: Rosuvastatin Calcium (Crestor) 20 mg PO DAILY [facility] Discontinued Medications Enoxaparin Sodium (Lovenox) 40 mg SUBCUT BEDTIME [facility] Stop: 04/25/20 21:01 Last Admin: 04/25/20 22:10 Dose: 40 mg Documented by: Furosemide (Lasix) 40 mg IVPUSH NOW ONE Stop: 05/02/20 12:34 Last Admin: 05/02/20 13:12 Dose: 40 mg Documented by: Remdesivir 200 mg/ Sodium (Chloride) 250 mls @ 250 mls/hr IV ONETIME ONE Stop: 04/25/20 19:59 Last Admin: 04/25/20 22:06 Dose: 250 mls/hr Documented by: Remdesivir 100 mg/ Sodium (Chloride) 100 mls @ 100 mls/hr IV Q24H [facility] Stop: 04/29/20 19:59 Last Admin: 04/29/20 18:41 Dose: 100 mls/hr Documented by: Lactated Ringer's (Ringers, Lactated) 1,000 mls @ 999 mls/hr IV .BOLUS ONE Stop: 04/25/20 20:23 Last Admin: 04/25/20 22:03 Dose: 999 mls/hr Documented by: Lactated Ringer's (Ringers, Lactated) 1,000 mls @ 999 mls/hr IV .BOLUS ONE Stop: 05/03/20 00:37 Last Admin: 05/02/20 23:49 Dose: 999 mls/hr Documented by: Metformin HCl (Glucophage) 500 mg PO BID [facility] Metoprolol Succinate (Toprol Xl) 25 mg PO DAILY [facility] Last Admin: 04/29/20 09:33 Dose: 25 mg Documented by: - Exam Quality Assessment: Supplemental Oxygen, DVT Prophylaxis General: Alert, Oriented, Cooperative HEENT: Pupils Equal, Pupils Reactive, EOMI, Mucous Membr. Moist/[place] Neck: Supple, Trachea Midline, No JVD. No: Lymphadenopathy Lungs: Normal Respiratory Effort, Crackles Cardiovascular: Regular Rate, Regular Rhythm, No Murmurs GI/Abdominal Exam: Normal Bowel Sounds, Soft, Non-Tender Extremities: Normal Inspection, Normal Range of Motion, No Pedal Edema, Normal Capillary Refill Peripheral Pulses: 2+: Radial (L), Radial (R), Dorsalis Pedis (L), Dorsalis Pedis (R) Skin: Warm, Dry, Intact Neurological: No New Focal Deficit Psy/Mental Status: Alert, Normal Affect, Normal Mood Sepsis Event Note - Evaluation Sepsis Screening Result: No Definite Risk - Focused Exam Vital Signs: Vital Signs Temp Resp BP Pulse Ox 05/03/20 07:00 15 107/68 92 L 05/03/20 06:45 21 H 106/67 90 L 05/03/20 06:38 19 100/70 05/03/20 06:30 20 94/44 L 94 L 05/03/20 06:00 19 115/68 94 L 05/03/20 05:00 18 100/63 93 L 05/03/20 04:10 19 100/70 05/03/20 04:00 97.0 F 18 102/61 93 L 05/03/20 03:00 22 H 105/66 94 L 05/03/20 02:15 19 100/75 05/03/20 02:00 21 H 105/60 98 05/03/20 01:25 17 90/60 05/03/20 01:15 18 85/40 L 92 L 05/03/20 00:21 18 100/60 05/03/20 00:15 19 91/58 L 90 L 05/03/20 00:00 97.0 F 21 H 108/60 94 L 05/02/20 23:26 21 H 79/44 L 95 05/02/20 22:00 22 H 91/52 L 92 L - Problem List & Annotations (1) COVID-19 SNOMED Code(s): 102076446 Code(s): U07.1 - COVID-19 Status: Acute (2) Elevated BUN SNOMED Code(s): 021066063 Code(s): R79.9 - ABNORMAL FINDING OF BLOOD CHEMISTRY, UNSPECIFIED Status: Acute - Problem List Review Problem List Initiated/Reviewed/Updated: Yes - My Orders Last 24 Hours: My Active Orders 05/03/20 09:00 Rosuvastatin [Crestor] 20 mg PO DAILY 05/04/20 05:11 PHOSPHORUS [CHEM] AM 05/04/20 11:33 MAGNESIUM [CHEM] DAILY 05/05/20 05:11 PHOSPHORUS [CHEM] AM 05/05/20 11:33 MAGNESIUM [CHEM] DAILY 05/06/20 05:11 PHOSPHORUS [CHEM] AM - Plan Plan:: Assessment and Plan: 1. Acute hypoxic respiratory failure secondary to COVID 19: - Patient currently on 10 L HFNC today. Continue to wean as tolerated. Continue treatment with dexamethasone, PPI, Combivent and Levaquin. Patient completed 5- day course of Remdesivir and received 2 units of convalescent plasma. 2.Elevated BUN: Stable; continue to monitor with daily cmp. 3. Diabetes mellitus type II: - ADA diet, Novolog SSI and accuchecks TIDAC. 4. DVT prophylaxis: - Lovenox 40 mg subcut qd. 5. Past medical history of HTN, HLD, hypothyroidism and CAD: - Continue home medications. <Obed Dorman - Last Filed: 05/10/20 13:14> - Patient Data Vitals - Most Recent: Last Vital Signs Temp 36.8 C 05/06/20 12:00 Pulse 84 05/06/20 12:00 Resp 18 05/06/20 12:00 BP 122/78 05/06/20 12:00 Pulse Ox 94 L 05/06/20 12:00 Med Orders - Current: Current Medications Discontinued Medications Acetaminophen (Tylenol) 650 mg PO Q4H PRN PRN Reason: Pain (Mild 1-3)/fever Last Admin: 05/01/20 16:05 Dose: 650 mg Documented by: Albuterol/Ipratropium (Combivent Respimat) 0 gm INH Q4H [facility] Last Admin: 05/06/20 13:17 Dose: 1 puff Documented by: Benzonatate (Tessalon Perles) 100 mg PO TID PRN PRN Reason: Cough Last Admin: 05/06/20 06:41 Dose: 100 mg Documented by: Dexamethasone (Dexamethasone) 6 mg PO DAILY@1800 [facility] Last Admin: 05/03/20 17:51 Dose: 6 mg Documented by: Dexamethasone (Dexamethasone) 6 mg PO DAILY@1000 [facility] Last Admin: 05/05/20 09:03 Dose: 6 mg Documented by: Dextrose/Water (Dextrose 50% In Water) 50 ml IV ASDIRECTED PRN PRN Reason: Hypoglycemia Dextrose/Water (Dextrose 50% In Water) 50 ml IV ASDIRECTED PRN PRN Reason: Hypoglycemia Enoxaparin Sodium (Lovenox) 40 mg SUBCUT BEDTIME [facility] Last Admin: 05/05/20 21:26 Dose: 40 mg Documented by: Enoxaparin Sodium (Lovenox) 40 mg SUBCUT BEDTIME [facility] Stop: 04/25/20 21:01 Last Admin: 04/25/20 22:10 Dose: 40 mg Documented by: Furosemide (Lasix) 40 mg IVPUSH NOW ONE Stop: 05/02/20 12:34 Last Admin: 05/02/20 13:12 Dose: 40 mg Documented by: Furosemide (Lasix) 20 mg IVPUSH ONETIME ONE Stop: 05/04/20 09:43 Last Admin: 05/04/20 09:57 Dose: 20 mg Documented by: Gemfibrozil (Lopid) 600 mg PO BID [facility] Last Admin: 05/06/20 08:48 Dose: 600 mg Documented by: Glucagon (Glucagen) 1 mg IM ASDIRECTED PRN PRN Reason: Hypoglycemia Glucagon (Glucagen) 1 mg IM ASDIRECTED PRN PRN Reason: Hypoglycemia Guaifenesin/Codeine Phosphate (Robitussin Ac) 5 ml PO Q4H PRN PRN Reason: Cough Levofloxacin/Dextrose 750 mg/ (Premix) 150 mls @ 100 mls/hr IV Q24H [facility] Last Admin: 05/04/20 20:10 Dose: 80 mls/hr Documented by: Remdesivir 200 mg/ Sodium (Chloride) 250 mls @ 250 mls/hr IV ONETIME ONE Stop: 04/25/20 19:59 Last Admin: 04/25/20 22:06 Dose: 250 mls/hr Documented by: Remdesivir 100 mg/ Sodium (Chloride) 100 mls @ 100 mls/hr IV Q24H [facility] Stop: 04/29/20 19:59 Last Admin: 04/29/20 18:41 Dose: 100 mls/hr Documented by: Lactated Ringer's (Ringers, Lactated) 1,000 mls @ 999 mls/hr IV .BOLUS ONE Stop: 04/25/20 20:23 Last Admin: 04/25/20 22:03 Dose: 999 mls/hr Documented by: Lactated Ringer's (Ringers, Lactated) 1,000 mls @ 999 mls/hr IV .BOLUS ONE Stop: 05/03/20 00:37 Last Admin: 05/02/20 23:49 Dose: 999 mls/hr Documented by: Insulin Aspart (Novolog) 0 unit SUBCUT TIDAC [facility]; Protocol Last Admin: 05/03/20 09:15 Dose: 5 units Documented by: Insulin Aspart (Novolog) 0 unit SUBCUT TIDAC [facility]; Protocol Last Admin: 05/06/20 12:36 Dose: 9 units Documented by: Insulin Human Regular (Novolin R) 20 unit SUBCUT ONETIME ONE; Protocol Stop: 05/05/20 18:57 Last Admin: 05/05/20 20:18 Dose: 20 units Documented by: Insulin Human Regular (Novolin R) 20 unit SUBCUT ONETIME ONE; Protocol Stop: 05/05/20 19:36 Last Admin: 05/05/20 21:21 Dose: Not Given Documented by: Levothyroxine Sodium (Levothyroxine) 25 mcg PO ACBREAKFAST [facility] Last Admin: 05/06/20 06:41 Dose: 25 mcg Documented by: Lisinopril (Prinivil) 10 mg PO DAILY [facility] Last Admin: 05/03/20 09:20 Dose: 10 mg Documented by: Lorazepam (Ativan) 1 mg IVPUSH BEDTIME ONE Stop: 05/04/20 22:21 Last Admin: 05/04/20 21:19 Dose: 1 mg Documented by: Lorazepam (Ativan) 4 mg IVPUSH BEDTIME [facility] Lorazepam (Ativan) 1 mg IVPUSH BEDTIME [facility] Last Admin: 05/05/20 21:26 Dose: 1 mg Documented by: Melatonin (Melatonin) 3 mg PO BEDTIME PRN PRN Reason: Sleep Last Admin: 05/03/20 22:19 Dose: 3 mg Documented by: Metformin HCl (Glucophage) 500 mg PO BID [facility] Metoprolol Succinate (Toprol Xl) 25 mg PO DAILY [facility] Last Admin: 04/29/20 09:33 Dose: 25 mg Documented by: Niacin (Niacin) 500 mg PO DAILY [facility] Last Admin: 05/03/20 09:19 Dose: 500 mg Documented by: Ondansetron HCl (Zofran) 4 mg IVPUSH Q4H PRN PRN Reason: Nausea/Vomiting Pantoprazole Sodium (Protonix) 40 mg PO ACBREAKFAST [facility] Last Admin: 05/06/20 06:41 Dose: 40 mg Documented by: Rosuvastatin Calcium (Crestor) 20 mg PO DAILY [facility] Last Admin: 05/06/20 08:48 Dose: 20 mg Documented by: Sodium Chloride (Saline Flush) 10 ml FLUSH Q4H PRN PRN Reason: maintain IV patency Last Admin: 05/04/20 06:54 Dose: 10 ml Documented by: - Plan Plan:: I have seen and evaluated the patient and agree with the residents note unless specified in my note
[2020-05-03] MEDS: Gemfibrozil 600 MG Tab PO SCH ×2 (09:21→20:58)
[2020-05-03] MEDS: Dexamethasone 4 MG Tab PO SCH (17:51)
[2020-05-03] MEDS: Sodium Chloride 0.9% 10 ML Syringe FLUSH PRN (20:00)
[2020-05-03] MEDS: Levofloxacin/Dextrose 5%-Water 750 MG in Premix Bag 1 BAG IV SCH (20:54)
[2020-05-03] MEDS: Enoxaparin 40 MG/0.4 ML Syringe SUBCUT SCH (20:56)
[2020-05-03] MEDS: Melatonin 3 MG Tab PO PRN (22:19)
[2020-05-04] MEDS: Albuterol/Ipratropium 4 GM Inhalation Spray INH SCH ×7 (02:00→21:19)
[2020-05-04] MEDS: Sodium Chloride 0.9% 10 ML Syringe FLUSH PRN ×2 (06:54)
[2020-05-04 06:58] LABS: CARBON DIOXIDE,CO2 23.8 mmol/L (21.0-32.0); POTASSIUM,K 4.5 mmol/L (3.5-5.1)
[2020-05-04] MEDS: Insulin Aspart 100 Units/ML 3 ML Pen SUBCUT SCH ×3 (08:29→17:36)
[2020-05-04] MEDS: Rosuvastatin 10 MG Tab PO SCH (08:31)
[2020-05-04] MEDS: Pantoprazole 40 MG Tab.CR PO SCH (08:32)
[2020-05-04] MEDS: Gemfibrozil 600 MG Tab PO SCH ×2 (08:32→20:11)
[2020-05-04] MEDS: Levothyroxine 25 MCG Tab PO SCH (08:32)
[2020-05-04] MEDS ORDERED: Furosemide 20 MG/2 ML VIAL IVPUSH ONE (09:42)
[2020-05-04] MEDS: Dexamethasone 4 MG Tab PO SCH (10:00)
--- NOTE | 2020-05-04 11:39 | PCM.PN ---
<Britany Linton - Last Filed: 05/04/20 11:33> - General Info Date of Service: 05/04/20 Admission Dx/Problem (Free Text): Admission Diagnosis/Problem Admission Diagnosis/Problem Hypoxia Subjective Update: Pt is pleasant 74 y/o M who reports feeling well this morning excpet for complaints of poor sleep I suspect because of the late dose of steroids given. He is currently resting in bed on 6 L HFNC sating at 93%. Tolerating oral diet and having normal bowel movements. Denies any fever, chills, cough, sob, chest pain, abdominal pain, nausea, vomiting or changes in appetite. All questions and concerns were addressed at bedside. - Review of Systems General: Reports: No Symptoms HEENT: Reports: No Symptoms Pulmonary: Reports: No Symptoms Cardiovascular: Reports: No Symptoms Gastrointestinal: Reports: No Symptoms Genitourinary: Reports: No Symptoms Musculoskeletal: Reports: No Symptoms Skin: Reports: No Symptoms Neurological: Reports: No Symptoms Psychiatric: Reports: No Symptoms - Patient Data Vitals - Most Recent: Last Vital Signs Temp 96.9 F 05/04/20 08:00 Pulse 69 05/03/20 16:00 Resp 16 05/04/20 08:40 BP 119/69 05/04/20 08:40 Pulse Ox 91 L 05/04/20 08:40 Weight - Most Recent: 82.372 kg I&O - Last 24 Hours: Intake & Output 05/03/20 05/04/20 05/04/20 22:59 06:59 14:59 Intake Total 530 Output Total 625 860 Balance -625 -330 Lab Results Last 24 Hours: Laboratory Results - last 24 hr 05/03/20 05/03/20 05/04/20 Range/Units 11:31 16:59 06:02 WBC (4.0-11.0) K/uL RBC (4.50-5.90) M/uL Hgb (13.0-17.0) g/dL Hct (38.0-50.0) % MCV (80.0-98.0) fL MCH (27.0-32.0) pg MCHC (31.0-37.0) g/dL RDW Std Deviation (28.0-62.0) fl RDW Coeff of Etelv[place] (11.0-15.0) % Plt Count (150-400) K/uL MPV (7.40-12.00) fL Neut % (Auto) (48.0-80.0) % Lymph % (Auto) (16.0-40.0) % [place] % (Auto) (0.0-15.0) % Eos % (Auto) (0.0-7.0) % Baso % (Auto) (0.0-1.5) % Neut # (Auto) (1.4-5.7) K/uL Lymph # (Auto) (0.6-2.4) K/uL [place] # (Auto) (0.0-0.8) K/uL Eos # (Auto) (0.0-0.7) K/uL Baso # (Auto) (0.0-0.1) K/uL Nucleated RBC % /100WBC Nucleated RBCs # K/uL Sodium 130 L (136-148) mmol/L Potassium 4.5 (3.5-5.1) mmol/L Chloride 97 L (98-107) mmol/L Carbon Dioxide 23.8 (21.0-32.0) mmol/L BUN 32 H (7.0-18.0) mg/dL Creatinine 1.2 (0.8-1.3) mg/dL Est Cr Clr Drug Dosing 56.61 mL/min Estimated GFR (MDRD) 59.3 ml/min Glucose 264 H (74-106) mg/dL POC Glucose 325 H 243 H (60-110) mg/dL Calcium 9.3 (8.5-10.1) mg/dL Phosphorus 3.5 (2.6-4.7) mg/dL Magnesium (1.8-2.4) mg/dL Total Bilirubin 0.8 (0.2-1.0) mg/dL AST 12 L (15-37) IU/L ALT 19 (14-63) IU/L Alkaline Phosphatase 70 (46-116) U/L Total Protein 7.4 (6.4-8.2) g/dL Albumin 2.7 L (3.4-5.0) g/dL Globulin 4.7 H (2.6-4.0) g/dL Albumin/Globulin Ratio 0.6 L (0.9-1.6) 05/04/20 05/04/20 05/04/20 Range/Units 06:02 06:02 06:32 WBC 10.99 (4.0-11.0) K/uL RBC 5.13 (4.50-5.90) M/uL Hgb 14.8 (13.0-17.0) g/dL Hct 43.1 (38.0-50.0) % MCV 84.0 (80.0-98.0) fL MCH 28.8 (27.0-32.0) pg MCHC 34.3 (31.0-37.0) g/dL RDW Std Deviation 39.9 (28.0-62.0) fl RDW Coeff of Etelvina 13 (11.0-15.0) % Plt Count 204 (150-400) K/uL MPV 9.10 (7.40-12.00) fL Neut % (Auto) 90.3 H (48.0-80.0) % Lymph % (Auto) 4.9 L (16.0-40.0) % [place] % (Auto) 4.7 (0.0-15.0) % Eos % (Auto) 0.0 (0.0-7.0) % Baso % (Auto) 0.1 (0.0-1.5) % Neut # (Auto) 9.9 H (1.4-5.7) K/uL Lymph # (Auto) 0.5 L (0.6-2.4) K/uL [place] # (Auto) 0.5 (0.0-0.8) K/uL Eos # (Auto) 0.0 (0.0-0.7) K/uL Baso # (Auto) 0.0 (0.0-0.1) K/uL Nucleated RBC % 0.0 /100WBC Nucleated RBCs # 0 K/uL Sodium (136-148) mmol/L Potassium (3.5-5.1) mmol/L Chloride (98-107) mmol/L Carbon Dioxide (21.0-32.0) mmol/L BUN (7.0-18.0) mg/dL Creatinine (0.8-1.3) mg/dL Est Cr Clr Drug Dosing mL/min Estimated GFR (MDRD) ml/min Glucose (74-106) mg/dL POC Glucose 256 H (60-110) mg/dL Calcium (8.5-10.1) mg/dL Phosphorus 3.5 (2.6-4.7) mg/dL Magnesium 2.4 (1.8-2.4) mg/dL Total Bilirubin (0.2-1.0) mg/dL AST (15-37) IU/L ALT (14-63) IU/L Alkaline Phosphatase (46-116) U/L Total Protein (6.4-8.2) g/dL Albumin (3.4-5.0) g/dL Globulin (2.6-4.0) g/dL Albumin/Globulin Ratio (0.9-1.6) Med Orders - Current: Current Medications Acetaminophen (Tylenol) 650 mg PO Q4H PRN PRN Reason: Pain (Mild 1-3)/fever Last Admin: 05/01/20 16:05 Dose: 650 mg Documented by: Albuterol/Ipratropium (Combivent Respimat) 0 gm INH Q4H [facility] Last Admin: 05/04/20 10:52 Dose: 1 puff Documented by: Benzonatate (Tessalon Perles) 100 mg PO TID PRN PRN Reason: Cough Last Admin: 05/03/20 06:31 Dose: 100 mg Documented by: Dexamethasone (Dexamethasone) 6 mg PO DAILY@1000 [facility] Last Admin: 05/04/20 10:00 Dose: 6 mg Documented by: Dextrose/Water (Dextrose 50% In Water) 50 ml IV ASDIRECTED PRN PRN Reason: Hypoglycemia Enoxaparin Sodium (Lovenox) 40 mg SUBCUT BEDTIME [facility] Last Admin: 05/03/20 20:56 Dose: 40 mg Documented by: Gemfibrozil (Lopid) 600 mg PO BID [facility] Last Admin: 05/04/20 08:32 Dose: 600 mg Documented by: Glucagon (Glucagen) 1 mg IM ASDIRECTED PRN PRN Reason: Hypoglycemia Levofloxacin/Dextrose 750 mg/ (Premix) 150 mls @ 100 mls/hr IV Q24H [facility] Last Admin: 05/03/20 20:54 Dose: 80 mls/hr Documented by: Insulin Aspart (Novolog) 0 unit SUBCUT TIDAC [facility]; Protocol Last Admin: 05/04/20 08:29 Dose: 9 units Documented by: Levothyroxine Sodium (Levothyroxine) 25 mcg PO ACBREAKFAST [facility] Last Admin: 05/04/20 08:32 Dose: 25 mcg Documented by: Melatonin (Melatonin) 3 mg PO BEDTIME PRN PRN Reason: Sleep Last Admin: 05/03/20 22:19 Dose: 3 mg Documented by: Ondansetron HCl (Zofran) 4 mg IVPUSH Q4H PRN PRN Reason: Nausea/Vomiting Pantoprazole Sodium (Protonix) 40 mg PO ACBREAKFAST [facility] Last Admin: 05/04/20 08:32 Dose: 40 mg Documented by: Rosuvastatin Calcium (Crestor) 20 mg PO DAILY [facility] Last Admin: 05/04/20 08:31 Dose: 20 mg Documented by: Sodium Chloride (Saline Flush) 10 ml FLUSH Q4H PRN PRN Reason: maintain IV patency Last Admin: 05/04/20 06:54 Dose: 10 ml Documented by: Discontinued Medications Dexamethasone (Dexamethasone) 6 mg PO DAILY@1800 [facility] Last Admin: 05/03/20 17:51 Dose: 6 mg Documented by: Enoxaparin Sodium (Lovenox) 40 mg SUBCUT BEDTIME [facility] Stop: 04/25/20 21:01 Last Admin: 04/25/20 22:10 Dose: 40 mg Documented by: Furosemide (Lasix) 40 mg IVPUSH NOW ONE Stop: 05/02/20 12:34 Last Admin: 05/02/20 13:12 Dose: 40 mg Documented by: Furosemide (Lasix) 20 mg IVPUSH ONETIME ONE Stop: 05/04/20 09:43 Last Admin: 05/04/20 09:57 Dose: 20 mg Documented by: Remdesivir 200 mg/ Sodium (Chloride) 250 mls @ 250 mls/hr IV ONETIME ONE Stop: 04/25/20 19:59 Last Admin: 04/25/20 22:06 Dose: 250 mls/hr Documented by: Remdesivir 100 mg/ Sodium (Chloride) 100 mls @ 100 mls/hr IV Q24H [facility] Stop: 04/29/20 19:59 Last Admin: 04/29/20 18:41 Dose: 100 mls/hr Documented by: Lactated Ringer's (Ringers, Lactated) 1,000 mls @ 999 mls/hr IV .BOLUS ONE Stop: 04/25/20 20:23 Last Admin: 04/25/20 22:03 Dose: 999 mls/hr Documented by: Lactated Ringer's (Ringers, Lactated) 1,000 mls @ 999 mls/hr IV .BOLUS ONE Stop: 05/03/20 00:37 Last Admin: 05/02/20 23:49 Dose: 999 mls/hr Documented by: Insulin Aspart (Novolog) 0 unit SUBCUT TIDAC [facility]; Protocol Last Admin: 05/03/20 09:15 Dose: 5 units Documented by: Lisinopril (Prinivil) 10 mg PO DAILY [facility] Last Admin: 05/03/20 09:20 Dose: 10 mg Documented by: Metformin HCl (Glucophage) 500 mg PO BID [facility] Metoprolol Succinate (Toprol Xl) 25 mg PO DAILY [facility] Last Admin: 04/29/20 09:33 Dose: 25 mg Documented by: Niacin (Niacin) 500 mg PO DAILY [facility] Last Admin: 05/03/20 09:19 Dose: 500 mg Documented by: - Exam Quality Assessment: Supplemental Oxygen, DVT Prophylaxis General: Alert, Oriented, Cooperative, No Acute Distress HEENT: Pupils Equal, Pupils Reactive, EOMI, Mucous Membr. Moist/[place] Neck: Supple, Trachea Midline, No JVD Lungs: Decreased Breath Sounds (in upper lobes ), Crackles (in lower lobes bilaterally ) Cardiovascular: Regular Rate, Regular Rhythm GI/Abdominal Exam: Normal Bowel Sounds, Soft, Non-Tender, No Distention, No Abnormal Bruit, No Mass Extremities: Normal Inspection, Normal Range of Motion, No Pedal Edema, Normal Capillary Refill Peripheral Pulses: 2+: Brachial (L), Brachial (R), Dorsalis Pedis (L), Dorsalis Pedis (R) Skin: Warm, Dry, Intact Neurological: No New Focal Deficit Psy/Mental Status: Alert, Normal Affect, Normal Mood Sepsis Event Note - Evaluation Sepsis Screening Result: No Definite Risk - Focused Exam Vital Signs: Vital Signs Temp Resp BP Pulse Ox Pulse Ox 05/04/20 08:40 16 119/69 91 L 05/04/20 08:00 96.9 F 23 H 121/74 88 L 05/04/20 07:00 22 H 112/68 93 L 05/04/20 06:00 15 114/67 94 L 94 L 05/04/20 05:00 17 116/63 96 05/04/20 04:00 98.2 F 16 110/79 96 05/04/20 03:00 20 99/63 96 05/04/20 02:00 15 101/64 97 05/04/20 01:00 20 104/61 94 L 05/04/20 00:00 98.6 F 20 108/65 94 L - Problem List & Annotations (1) COVID-19 SNOMED Code(s): 021253407 Code(s): U07.1 - COVID-19 Status: Acute (2) Elevated BUN SNOMED Code(s): 026963785 Code(s): R79.9 - ABNORMAL FINDING OF BLOOD CHEMISTRY, UNSPECIFIED Status: Acute (3) Hyponatremia SNOMED Code(s): 81450799 Code(s): E87.1 - HYPO-OSMOLALITY AND HYPONATREMIA Status: Acute - Problem List Review Problem List Initiated/Reviewed/Updated: Yes - My Orders Last 24 Hours: My Active Orders 05/04/20 11:33 MAGNESIUM [CHEM] DAILY 05/05/20 05:11 CBC WITH AUTO DIFF [HEME] AM COMPREHENSIVE METABOLIC PN,CMP [CHEM] AM PHOSPHORUS [CHEM] AM 05/05/20 11:33 MAGNESIUM [CHEM] DAILY 05/06/20 05:11 CBC WITH AUTO DIFF [HEME] AM COMPREHENSIVE METABOLIC PN,CMP [CHEM] AM PHOSPHORUS [CHEM] AM 05/07/20 05:11 CBC WITH AUTO DIFF [HEME] AM COMPREHENSIVE METABOLIC PN,CMP [CHEM] AM - Plan Plan:: Assessment and Plan: 1. Acute hypoxic respiratory failure secondary to COVID 19: - Patient currently on 6 L HFNC today. Continue to wean as tolerated. Continue treatment with dexamethasone, PPI, Combivent and Levaquin. Patient completed 5- day course of Remdesivir and received 2 units of convalescent plasma. -will consider 20mg IV lasix to help reduce crackles in lungs. 2. Elevated BUN: Stable; continue to monitor with daily cmp. Avoid nephrotoxins. 3. Diabetes mellitus type II: - ADA diet, Novolog SSI (high dose since yesterday) and accuchecks TIDAC. Hyperglycemis today 264 likely secondary to steroids, since usually he only uses metformin at home. 4.Insomnia- change steroids to earlier time versus p.m dose, d/c melatonin and will give 1x dose Ativan at night 1mg. 5. DVT prophylaxis: - Lovenox 40 mg subcut qd. 6. Past medical history of HTN, HLD, hypothyroidism and CAD: - Continue home medications. <Obed Dorman - Last Filed: 05/10/20 12:56> - Patient Data Vitals - Most Recent: Last Vital Signs Temp 36.8 C 05/06/20 12:00 Pulse 84 05/06/20 12:00 Resp 18 05/06/20 12:00 BP 122/78 05/06/20 12:00 Pulse Ox 94 L 05/06/20 12:00 Med Orders - Current: Current Medications Discontinued Medications Acetaminophen (Tylenol) 650 mg PO Q4H PRN PRN Reason: Pain (Mild 1-3)/fever Last Admin: 05/01/20 16:05 Dose: 650 mg Documented by: Albuterol/Ipratropium (Combivent Respimat) 0 gm INH Q4H [facility] Last Admin: 05/06/20 13:17 Dose: 1 puff Documented by: Benzonatate (Tessalon Perles) 100 mg PO TID PRN PRN Reason: Cough Last Admin: 05/06/20 06:41 Dose: 100 mg Documented by: Dexamethasone (Dexamethasone) 6 mg PO DAILY@1800 [facility] Last Admin: 05/03/20 17:51 Dose: 6 mg Documented by: Dexamethasone (Dexamethasone) 6 mg PO DAILY@1000 [facility] Last Admin: 05/05/20 09:03 Dose: 6 mg Documented by: Dextrose/Water (Dextrose 50% In Water) 50 ml IV ASDIRECTED PRN PRN Reason: Hypoglycemia Dextrose/Water (Dextrose 50% In Water) 50 ml IV ASDIRECTED PRN PRN Reason: Hypoglycemia Enoxaparin Sodium (Lovenox) 40 mg SUBCUT BEDTIME [facility] Last Admin: 05/05/20 21:26 Dose: 40 mg Documented by: Enoxaparin Sodium (Lovenox) 40 mg SUBCUT BEDTIME [facility] Stop: 04/25/20 21:01 Last Admin: 04/25/20 22:10 Dose: 40 mg Documented by: Furosemide (Lasix) 40 mg IVPUSH NOW ONE Stop: 05/02/20 12:34 Last Admin: 05/02/20 13:12 Dose: 40 mg Documented by: Furosemide (Lasix) 20 mg IVPUSH ONETIME ONE Stop: 05/04/20 09:43 Last Admin: 05/04/20 09:57 Dose: 20 mg Documented by: Gemfibrozil (Lopid) 600 mg PO BID [facility] Last Admin: 05/06/20 08:48 Dose: 600 mg Documented by: Glucagon (Glucagen) 1 mg IM ASDIRECTED PRN PRN Reason: Hypoglycemia Glucagon (Glucagen) 1 mg IM ASDIRECTED PRN PRN Reason: Hypoglycemia Guaifenesin/Codeine Phosphate (Robitussin Ac) 5 ml PO Q4H PRN PRN Reason: Cough Levofloxacin/Dextrose 750 mg/ (Premix) 150 mls @ 100 mls/hr IV Q24H [facility] Last Admin: 05/04/20 20:10 Dose: 80 mls/hr Documented by: Remdesivir 200 mg/ Sodium (Chloride) 250 mls @ 250 mls/hr IV ONETIME ONE Stop: 04/25/20 19:59 Last Admin: 04/25/20 22:06 Dose: 250 mls/hr Documented by: Remdesivir 100 mg/ Sodium (Chloride) 100 mls @ 100 mls/hr IV Q24H [facility] Stop: 04/29/20 19:59 Last Admin: 04/29/20 18:41 Dose: 100 mls/hr Documented by: Lactated Ringer's (Ringers, Lactated) 1,000 mls @ 999 mls/hr IV .BOLUS ONE Stop: 04/25/20 20:23 Last Admin: 04/25/20 22:03 Dose: 999 mls/hr Documented by: Lactated Ringer's (Ringers, Lactated) 1,000 mls @ 999 mls/hr IV .BOLUS ONE Stop: 05/03/20 00:37 Last Admin: 05/02/20 23:49 Dose: 999 mls/hr Documented by: [facility] Last Admin: 05/03/20 09:15 Dose: 5 units Documented by: Insulin Aspart ([facility]olog) [facility]; Protocol Last Admin: 05/06/20 12:36 Dose: 9 units Documented by: Insulin Human Regular (Novolin R) 20 unit SUBCUT ONETIME ONE; Protocol Stop: 05/05/20 18:57 Last Admin: 05/05/20 20:18 Dose: 20 units Documented by: Insulin Human Regular (Novolin R) 20 unit SUBCUT ONETIME ONE; Protocol Stop: 05/05/20 19:36 Last Admin: 05/05/20 21:21 Dose: Not Given Documented by: Levothyroxine Sodium (Levothyroxine) 25 mcg PO ACBREAKFAST [facility] Last Admin: 05/06/20 06:41 Dose: 25 mcg Documented by: Lisinopril (Prinivil) 10 mg PO DAILY [facility] Last Admin: 05/03/20 09:20 Dose: 10 mg Documented by: Lorazepam (Ativan) 1 mg IVPUSH BEDTIME ONE Stop: 05/04/20 22:21 Last Admin: 05/04/20 21:19 Dose: 1 mg Documented by: Lorazepam (Ativan) 4 mg IVPUSH BEDTIME [facility] Lorazepam (Ativan) 1 mg IVPUSH BEDTIME [facility] Last Admin: 05/05/20 21:26 Dose: 1 mg Documented by: Melatonin (Melatonin) 3 mg PO BEDTIME PRN PRN Reason: Sleep Last Admin: 05/03/20 22:19 Dose: 3 mg Documented by: Metformin HCl (Glucophage) 500 mg PO BID [facility] Metoprolol Succinate (Toprol Xl) 25 mg PO DAILY [facility] Last Admin: 04/29/20 09:33 Dose: 25 mg Documented by: Niacin (Niacin) 500 mg PO DAILY [facility] Last Admin: 05/03/20 09:19 Dose: 500 mg Documented by: Ondansetron HCl (Zofran) 4 mg IVPUSH Q4H PRN PRN Reason: Nausea/Vomiting Pantoprazole Sodium (Protonix) 40 mg PO ACBREAKFAST [facility] Last Admin: 05/06/20 06:41 Dose: 40 mg Documented by: Rosuvastatin Calcium (Crestor) 20 mg PO DAILY [facility] Last Admin: 05/06/20 08:48 Dose: 20 mg Documented by: Sodium Chloride (Saline Flush) 10 ml FLUSH Q4H PRN PRN Reason: maintain IV patency Last Admin: 05/04/20 06:54 Dose: 10 ml Documented by: - Plan Plan:: I have seen and evaluated the patient and agree with the residents note unless specified in my note
[2020-05-04] MEDS: Levofloxacin/Dextrose 5%-Water 750 MG in Premix Bag 1 BAG IV SCH (20:10)
[2020-05-04] MEDS: Enoxaparin 40 MG/0.4 ML Syringe SUBCUT SCH (20:11)
[2020-05-04] MEDS: Benzonatate 100 MG Cap PO PRN (20:11)
[2020-05-04] MEDS ORDERED: LORazepam 2 MG/ML SDV IVPUSH ONE (22:20)
[2020-05-05] MEDS: Albuterol/Ipratropium 4 GM Inhalation Spray INH SCH ×5 (03:39→17:52)
[2020-05-05] MEDS: Pantoprazole 40 MG Tab.CR PO SCH (06:31)
[2020-05-05] MEDS: Levothyroxine 25 MCG Tab PO SCH (06:31)
[2020-05-05 07:21] LABS: CARBON DIOXIDE,CO2 26.2 mmol/L (21.0-32.0); POTASSIUM,K 4.2 mmol/L (3.5-5.1)
[2020-05-05] MEDS: Insulin Aspart 100 Units/ML 3 ML Pen SUBCUT SCH ×3 (08:50→17:53)
[2020-05-05] MEDS: Rosuvastatin 10 MG Tab PO SCH (08:52)
[2020-05-05] MEDS: Gemfibrozil 600 MG Tab PO SCH ×2 (08:52→21:26)
[2020-05-05] MEDS: Benzonatate 100 MG Cap PO PRN ×2 (08:53→21:26)
[2020-05-05] MEDS: Dexamethasone 4 MG Tab PO SCH (09:03)
[2020-05-05] MEDS ORDERED: Codeine/guaiFENesin 10-100 MG/5 ML Syrup 5 ML Cup PO PRN (10:20)
--- NOTE | 2020-05-05 11:42 | PCM.PN ---
<Britany Linton - Last Filed: 05/05/20 11:32> - General Info Date of Service: 05/05/20 Admission Dx/Problem (Free Text): Admission Diagnosis/Problem Admission Diagnosis/Problem Hypoxia Subjective Update: Pt is pleasant 74 y/o M who reports feeling well this morning ans slept well. He is currently resting in bed on 4 L HFNC sating at 93%. Tolerating oral diet and having normal bowel movements. Denies any fever, chills, cough, sob, chest pain , abdominal pain, nausea, vomiting or changes in appetite. All questions and concerns were addressed at bedside. Functional Status: Reports: Tolerating Diet - Review of Systems General: Reports: No Symptoms HEENT: Reports: No Symptoms Pulmonary: Reports: No Symptoms Cardiovascular: Reports: No Symptoms Gastrointestinal: Reports: No Symptoms Genitourinary: Reports: No Symptoms Musculoskeletal: Reports: No Symptoms Skin: Reports: No Symptoms Neurological: Reports: No Symptoms Psychiatric: Reports: No Symptoms - Patient Data Vitals - Most Recent: Last Vital Signs Temp 96.8 F L 05/05/20 08:55 Pulse 85 05/05/20 08:55 Resp 20 05/05/20 08:55 BP 114/79 05/05/20 08:55 Pulse Ox 92 L 05/05/20 08:55 Weight - Most Recent: 82.372 kg I&O - Last 24 Hours: Intake & Output 05/04/20 05/05/20 05/05/20 22:59 06:59 14:59 Intake Total 480 650 Output Total 900 600 Balance -420 50 Lab Results Last 24 Hours: Laboratory Results - last 24 hr 05/04/20 05/04/20 05/04/20 Range/Units 12:08 12:25 17:32 WBC (4.0-11.0) K/uL RBC (4.50-5.90) M/uL Hgb (13.0-17.0) g/dL Hct (38.0-50.0) % MCV (80.0-98.0) fL MCH (27.0-32.0) pg MCHC (31.0-37.0) g/dL RDW Std Deviation (28.0-62.0) fl RDW Coeff of Etelvina (11.0-15.0) % Plt Count (150-400) K/uL MPV (7.40-12.00) fL Neut % (Auto) (48.0-80.0) % Lymph % (Auto) (16.0-40.0) % Summers % (Auto) (0.0-15.0) % Eos % (Auto) (0.0-7.0) % Baso % (Auto) (0.0-1.5) % Neut # (Auto) (1.4-5.7) K/uL Lymph # (Auto) (0.6-2.4) K/uL Summers # (Auto) (0.0-0.8) K/uL Eos # (Auto) (0.0-0.7) K/uL Baso # (Auto) (0.0-0.1) K/uL Nucleated RBC % /100WBC Nucleated RBCs # K/uL Sodium (136-148) mmol/L Potassium (3.5-5.1) mmol/L Chloride (98-107) mmol/L Carbon Dioxide (21.0-32.0) mmol/L BUN (7.0-18.0) mg/dL Creatinine (0.8-1.3) mg/dL Est Cr Clr Drug Dosing mL/min Estimated GFR (MDRD) ml/min Glucose (74-106) mg/dL POC Glucose 329 H 394 H (60-110) mg/dL Calcium (8.5-10.1) mg/dL Phosphorus (2.6-4.7) mg/dL Magnesium 2.4 (1.8-2.4) mg/dL Total Bilirubin (0.2-1.0) mg/dL AST (15-37) IU/L ALT (14-63) IU/L Alkaline Phosphatase (46-116) U/L Total Protein (6.4-8.2) g/dL Albumin (3.4-5.0) g/dL Globulin (2.6-4.0) g/dL Albumin/Globulin Ratio (0.9-1.6) 05/05/20 05/05/20 05/05/20 Range/Units 06:25 06:25 06:25 WBC 14.20 H (4.0-11.0) K/uL RBC 5.29 (4.50-5.90) M/uL Hgb 15.4 (13.0-17.0) g/dL Hct 44.3 (38.0-50.0) % MCV 83.7 (80.0-98.0) fL MCH 29.1 (27.0-32.0) pg MCHC 34.8 (31.0-37.0) g/dL RDW Std Deviation 39.5 (28.0-62.0) fl RDW Coeff of Etelvina 13 (11.0-15.0) % Plt Count 210 (150-400) K/uL MPV 8.90 (7.40-12.00) fL Neut % (Auto) 85.3 H (48.0-80.0) % Lymph % (Auto) 7.0 L (16.0-40.0) % Summers % (Auto) 7.5 (0.0-15.0) % Eos % (Auto) 0.1 (0.0-7.0) % Baso % (Auto) 0.1 (0.0-1.5) % Neut # (Auto) 12.1 H (1.4-5.7) K/uL Lymph # (Auto) 1.0 (0.6-2.4) K/uL Summers # (Auto) 1.1 H (0.0-0.8) K/uL Eos # (Auto) 0.0 (0.0-0.7) K/uL Baso # (Auto) 0.0 (0.0-0.1) K/uL Nucleated RBC % 0.0 /100WBC Nucleated RBCs # 0 K/uL Sodium 132 L (136-148) mmol/L Potassium 4.2 (3.5-5.1) mmol/L Chloride 96 L (98-107) mmol/L Carbon Dioxide 26.2 (21.0-32.0) mmol/L BUN 35 H (7.0-18.0) mg/dL Creatinine 1.4 H (0.8-1.3) mg/dL Est Cr Clr Drug Dosing 48.52 mL/min Estimated GFR (MDRD) 49.7 ml/min Glucose 238 H (74-106) mg/dL POC Glucose (60-110) mg/dL Calcium 9.1 (8.5-10.1) mg/dL Phosphorus 3.8 (2.6-4.7) mg/dL Magnesium 2.4 (1.8-2.4) mg/dL Total Bilirubin 0.8 (0.2-1.0) mg/dL AST 13 L (15-37) IU/L ALT 25 (14-63) IU/L Alkaline Phosphatase 70 (46-116) U/L Total Protein 7.5 (6.4-8.2) g/dL Albumin 2.8 L (3.4-5.0) g/dL Globulin 4.7 H (2.6-4.0) g/dL Albumin/Globulin Ratio 0.6 L (0.9-1.6) 05/05/20 Range/Units 06:39 WBC (4.0-11.0) K/uL RBC (4.50-5.90) M/uL Hgb (13.0-17.0) g/dL Hct (38.0-50.0) % MCV (80.0-98.0) fL MCH (27.0-32.0) pg MCHC (31.0-37.0) g/dL RDW Std Deviation (28.0-62.0) fl RDW Coeff of Etelvina (11.0-15.0) % Plt Count (150-400) K/uL MPV (7.40-12.00) fL Neut % (Auto) (48.0-80.0) % Lymph % (Auto) (16.0-40.0) % Summers % (Auto) (0.0-15.0) % Eos % (Auto) (0.0-7.0) % Baso % (Auto) (0.0-1.5) % Neut # (Auto) (1.4-5.7) K/uL Lymph # (Auto) (0.6-2.4) K/uL Summers # (Auto) (0.0-0.8) K/uL Eos # (Auto) (0.0-0.7) K/uL Baso # (Auto) (0.0-0.1) K/uL Nucleated RBC % /100WBC Nucleated RBCs # K/uL Sodium (136-148) mmol/L Potassium (3.5-5.1) mmol/L Chloride (98-107) mmol/L Carbon Dioxide (21.0-32.0) mmol/L BUN (7.0-18.0) mg/dL Creatinine (0.8-1.3) mg/dL Est Cr Clr Drug Dosing mL/min Estimated GFR (MDRD) ml/min Glucose (74-106) mg/dL POC Glucose 264 H (60-110) mg/dL Calcium (8.5-10.1) mg/dL Phosphorus (2.6-4.7) mg/dL Magnesium (1.8-2.4) mg/dL Total Bilirubin (0.2-1.0) mg/dL AST (15-37) IU/L ALT (14-63) IU/L Alkaline Phosphatase (46-116) U/L Total Protein (6.4-8.2) g/dL Albumin (3.4-5.0) g/dL Globulin (2.6-4.0) g/dL Albumin/Globulin Ratio (0.9-1.6) Med Orders - Current: Current Medications Acetaminophen (Tylenol) 650 mg PO Q4H PRN PRN Reason: Pain (Mild 1-3)/fever Last Admin: 05/01/20 16:05 Dose: 650 mg Documented by: Albuterol/Ipratropium (Combivent Respimat) 0 gm INH Q4H [facility] Last Admin: 05/05/20 09:24 Dose: 1 puff Documented by: Benzonatate (Tessalon Perles) 100 mg PO TID PRN PRN Reason: Cough Last Admin: 05/05/20 08:53 Dose: 100 mg Documented by: Dextrose/Water (Dextrose 50% In Water) 50 ml IV ASDIRECTED PRN PRN Reason: Hypoglycemia Enoxaparin Sodium (Lovenox) 40 mg SUBCUT BEDTIME [facility] Last Admin: 05/04/20 20:11 Dose: 40 mg Documented by: Gemfibrozil (Lopid) 600 mg PO BID [facility] Last Admin: 05/05/20 08:52 Dose: 600 mg Documented by: Glucagon (Glucagen) 1 mg IM ASDIRECTED PRN PRN Reason: Hypoglycemia Guaifenesin/Codeine Phosphate (Robitussin Ac) 5 ml PO Q4H PRN PRN Reason: Cough Insulin Aspart (Novolog) 0 unit SUBCUT TIDAC [facility]; Protocol Last Admin: 05/05/20 08:50 Dose: 9 units Documented by: Levothyroxine Sodium (Levothyroxine) 25 mcg PO ACBREAKFAST [facility] Last Admin: 05/05/20 06:31 Dose: 25 mcg Documented by: Ondansetron HCl (Zofran) 4 mg IVPUSH Q4H PRN PRN Reason: Nausea/Vomiting Pantoprazole Sodium (Protonix) 40 mg PO ACBREAKFAST [facility] Last Admin: 05/05/20 06:31 Dose: 40 mg Documented by: Rosuvastatin Calcium (Crestor) 20 mg PO DAILY [facility] Last Admin: 05/05/20 08:52 Dose: 20 mg Documented by: Sodium Chloride (Saline Flush) 10 ml FLUSH Q4H PRN PRN Reason: maintain IV patency Last Admin: 05/04/20 06:54 Dose: 10 ml Documented by: Discontinued Medications Dexamethasone (Dexamethasone) 6 mg PO DAILY@1800 [facility] Last Admin: 05/03/20 17:51 Dose: 6 mg Documented by: Dexamethasone (Dexamethasone) 6 mg PO DAILY@1000 [facility] Last Admin: 05/05/20 09:03 Dose: 6 mg Documented by: Enoxaparin Sodium (Lovenox) 40 mg SUBCUT BEDTIME [facility] Stop: 04/25/20 21:01 Last Admin: 04/25/20 22:10 Dose: 40 mg Documented by: Furosemide (Lasix) 40 mg IVPUSH NOW ONE Stop: 05/02/20 12:34 Last Admin: 05/02/20 13:12 Dose: 40 mg Documented by: Furosemide (Lasix) 20 mg IVPUSH ONETIME ONE Stop: 05/04/20 09:43 Last Admin: 05/04/20 09:57 Dose: 20 mg Documented by: Levofloxacin/Dextrose 750 mg/ (Premix) 150 mls @ 100 mls/hr IV Q24H [facility] Last Admin: 05/04/20 20:10 Dose: 80 mls/hr Documented by: Remdesivir 200 mg/ Sodium (Chloride) 250 mls @ 250 mls/hr IV ONETIME ONE Stop: 04/25/20 19:59 Last Admin: 04/25/20 22:06 Dose: 250 mls/hr Documented by: Remdesivir 100 mg/ Sodium (Chloride) 100 mls @ 100 mls/hr IV Q24H [facility] Stop: 04/29/20 19:59 Last Admin: 04/29/20 18:41 Dose: 100 mls/hr Documented by: Lactated Ringer's (Ringers, Lactated) 1,000 mls @ 999 mls/hr IV .BOLUS ONE Stop: 04/25/20 20:23 Last Admin: 04/25/20 22:03 Dose: 999 mls/hr Documented by: Lactated Ringer's (Ringers, Lactated) 1,000 mls @ 999 mls/hr IV .BOLUS ONE Stop: 05/03/20 00:37 Last Admin: 05/02/20 23:49 Dose: 999 mls/hr Documented by: [facility]ulin [facility]) [facility] Protocol Last Admin: 05/03/20 09:15 Dose: 5 units Documented by: Lisinopril (Prinivil) 10 mg PO DAILY [facility] Last Admin: 05/03/20 09:20 Dose: 10 mg Documented by: Lorazepam (Ativan) 1 mg IVPUSH BEDTIME ONE Stop: 05/04/20 22:21 Last Admin: 05/04/20 21:19 Dose: 1 mg Documented by: Melatonin (Melatonin) 3 mg PO BEDTIME PRN PRN Reason: Sleep Last Admin: 05/03/20 22:19 Dose: 3 mg Documented by: Metformin HCl (Glucophage) 500 mg PO BID [facility] Metoprolol Succinate (Toprol Xl) 25 mg PO DAILY [facility] Last Admin: 04/29/20 09:33 Dose: 25 mg Documented by: Niacin (Niacin) 500 mg PO DAILY [facility] Last Admin: 05/03/20 09:19 Dose: 500 mg Documented by: - Exam Quality Assessment: Supplemental Oxygen, DVT Prophylaxis General: Alert, Oriented, Cooperative, No Acute Distress HEENT: Pupils Equal, Pupils Reactive, EOMI, Mucous Membr. Moist/[place] Neck: Supple, Trachea Midline, No JVD Lungs: Clear to Auscultation, Normal Respiratory Effort, Crackles (fine crackles) Cardiovascular: Regular Rate, Regular Rhythm GI/Abdominal Exam: Normal Bowel Sounds, Soft, Non-Tender Extremities: Normal Inspection, Normal Range of Motion, No Pedal Edema, Normal Capillary Refill Peripheral Pulses: 2+: Radial (L), Radial (R), Dorsalis Pedis (L), Dorsalis Pedis (R) Skin: Warm, Dry, Intact Neurological: No New Focal Deficit Psy/Mental Status: Alert, Normal Affect, Normal Mood Sepsis Event Note - Evaluation Sepsis Screening Result: No Definite Risk - Focused Exam Vital Signs: Vital Signs Temp Pulse Resp BP Pulse Ox 05/05/20 08:55 96.8 F L 85 20 114/79 92 L 05/05/20 03:42 96.9 F 84 20 119/67 95 05/05/20 00:00 76 20 96 - Problem List & Annotations (1) COVID-19 SNOMED Code(s): 603831794 Code(s): U07.1 - COVID-19 Status: Acute (2) Elevated BUN SNOMED Code(s): 226679252 Code(s): R79.9 - ABNORMAL FINDING OF BLOOD CHEMISTRY, UNSPECIFIED Status: Acute (3) Hyponatremia SNOMED Code(s): 00968620 Code(s): E87.1 - HYPO-OSMOLALITY AND HYPONATREMIA Status: Acute - Problem List Review Problem List Initiated/Reviewed/Updated: Yes - My Orders Last 24 Hours: My Active Orders 05/06/20 05:11 CBC WITH AUTO DIFF [HEME] AM COMPREHENSIVE METABOLIC PN,CMP [CHEM] AM PHOSPHORUS [CHEM] AM 05/07/20 05:11 CBC WITH AUTO DIFF [HEME] AM COMPREHENSIVE METABOLIC PN,CMP [CHEM] AM - Plan Plan:: Assessment and Plan: 1. Acute hypoxic respiratory failure secondary to COVID 19: - Patient currently on 4 L HFNC today. Continue to wean as tolerated. Competed full course of dexamethasone and Levaquin. Patient completed 5-day course of Remdesivir and received 2 units of convalescent plasma. - will give 20mg IV lasix to help reduce fine crackles in lungs. 2. Elevated BUN: Stable; continue to monitor with daily cmp. Avoid nephrotoxins. 3. Diabetes mellitus type II: - ADA diet, Novolog SSI (high dose since yesterday) and accuchecks TIDAC. Hyperglycemis today 264 likely secondary to steroids, since usually he only uses metformin at home. 4.Insomnia- resolved with changing steroids to earlier time versus p.m dose, 1x dose Ativan at night 1mg. 5. DVT prophylaxis: - Lovenox 40 mg subcut qd. 6. PT consult - denies feeeling deconditioned, but has weakness secondary to COVID, we would appreciate their evaluation and recommendations. 7. Past medical history of HTN, HLD, hypothyroidism and CAD: - Continue home medications. <Obed Dorman - Last Filed: 05/10/20 12:42> - General Info Admission Dx/Problem (Free Text): I have seen and evaluated the patient and agree with the residents note unless specified in my note - Patient Data Vitals - Most Recent: Last Vital Signs Temp 36.8 C 05/06/20 12:00 Pulse 84 05/06/20 12:00 Resp 18 05/06/20 12:00 BP 122/78 05/06/20 12:00 Pulse Ox 94 L 05/06/20 12:00 Med Orders - Current: Current Medications Discontinued Medications Acetaminophen (Tylenol) 650 mg PO Q4H PRN PRN Reason: Pain (Mild 1-3)/fever Last Admin: 05/01/20 16:05 Dose: 650 mg Documented by: Albuterol/Ipratropium (Combivent Respimat) 0 gm INH Q4H [facility] Last Admin: 05/06/20 13:17 Dose: 1 puff Documented by: Benzonatate (Tessalon Perles) 100 mg PO TID PRN PRN Reason: Cough Last Admin: 05/06/20 06:41 Dose: 100 mg Documented by: Dexamethasone (Dexamethasone) 6 mg PO DAILY@1800 [facility] Last Admin: 05/03/20 17:51 Dose: 6 mg Documented by: Dexamethasone (Dexamethasone) 6 mg PO DAILY@1000 [facility] Last Admin: 05/05/20 09:03 Dose: 6 mg Documented by: Dextrose/Water (Dextrose 50% In Water) 50 ml IV ASDIRECTED PRN PRN Reason: Hypoglycemia Dextrose/Water (Dextrose 50% In Water) 50 ml IV ASDIRECTED PRN PRN Reason: Hypoglycemia Enoxaparin Sodium (Lovenox) 40 mg SUBCUT BEDTIME [facility] Last Admin: 05/05/20 21:26 Dose: 40 mg Documented by: Enoxaparin Sodium (Lovenox) 40 mg SUBCUT BEDTIME [facility] Stop: 04/25/20 21:01 Last Admin: 04/25/20 22:10 Dose: 40 mg Documented by: Furosemide (Lasix) 40 mg IVPUSH NOW ONE Stop: 05/02/20 12:34 Last Admin: 05/02/20 13:12 Dose: 40 mg Documented by: Furosemide (Lasix) 20 mg IVPUSH ONETIME ONE Stop: 05/04/20 09:43 Last Admin: 05/04/20 09:57 Dose: 20 mg Documented by: Gemfibrozil (Lopid) 600 mg PO BID [facility] Last Admin: 05/06/20 08:48 Dose: 600 mg Documented by: Glucagon (Glucagen) 1 mg IM ASDIRECTED PRN PRN Reason: Hypoglycemia Glucagon (Glucagen) 1 mg IM ASDIRECTED PRN PRN Reason: Hypoglycemia Guaifenesin/Codeine Phosphate (Robitussin Ac) 5 ml PO Q4H PRN PRN Reason: Cough Levofloxacin/Dextrose 750 mg/ (Premix) 150 mls @ 100 mls/hr IV Q24H [facility] Last Admin: 05/04/20 20:10 Dose: 80 mls/hr Documented by: Remdesivir 200 mg/ Sodium (Chloride) 250 mls @ 250 mls/hr IV ONETIME ONE Stop: 04/25/20 19:59 Last Admin: 04/25/20 22:06 Dose: 250 mls/hr Documented by: Remdesivir 100 mg/ Sodium (Chloride) 100 mls @ 100 mls/hr IV Q24H [facility] Stop: 04/29/20 19:59 Last Admin: 04/29/20 18:41 Dose: 100 mls/hr Documented by: Lactated Ringer's (Ringers, Lactated) 1,000 mls @ 999 mls/hr IV .BOLUS ONE Stop: 04/25/20 20:23 Last Admin: 04/25/20 22:03 Dose: 999 mls/hr Documented by: Lactated Ringer's (Ringers, Lactated) 1,000 mls @ 999 mls/hr IV .BOLUS ONE Stop: 05/03/20 00:37 Last Admin: 05/02/20 23:49 Dose: 999 mls/hr Documented by: [facility]ulin [facility] ([facility]) [facility] Protocol Last Admin: 05/03/20 09:15 Dose: 5 units Documented by: Insulin Aspart (Novolog) 0 unit SUBCUT TIDAC [facility]; Protocol Last Admin: 05/06/20 12:36 Dose: 9 units Documented by: Insulin Human Regular (Novolin R) 20 unit SUBCUT ONETIME [facility]; Protocol Stop: 05/05/20 18:57 Last Admin: 05/05/20 20:18 Dose: 20 units Documented by: Insulin Human Regular (Novolin R) 20 unit SUBCUT ONETIME [facility]; Protocol Stop: 05/05/20 19:36 Last Admin: 05/05/20 21:21 Dose: Not Given Documented by: Levothyroxine Sodium (Levothyroxine) 25 mcg PO ACBREAKFAST [facility] Last Admin: 05/06/20 06:41 Dose: 25 mcg Documented by: Lisinopril (Prinivil) 10 mg PO DAILY [facility] Last Admin: 05/03/20 09:20 Dose: 10 mg Documented by: Lorazepam (Ativan) 1 mg IVPUSH BEDTIME ONE Stop: 05/04/20 22:21 Last Admin: 05/04/20 21:19 Dose: 1 mg Documented by: Lorazepam (Ativan) 4 mg IVPUSH BEDTIME [facility] Lorazepam (Ativan) 1 mg IVPUSH BEDTIME [facility] Last Admin: 05/05/20 21:26 Dose: 1 mg Documented by: Melatonin (Melatonin) 3 mg PO BEDTIME PRN PRN Reason: Sleep Last Admin: 05/03/20 22:19 Dose: 3 mg Documented by: Metformin HCl (Glucophage) 500 mg PO BID [facility] Metoprolol Succinate (Toprol Xl) 25 mg PO DAILY [facility] Last Admin: 04/29/20 09:33 Dose: 25 mg Documented by: Niacin (Niacin) 500 mg PO DAILY [facility] Last Admin: 05/03/20 09:19 Dose: 500 mg Documented by: Ondansetron HCl (Zofran) 4 mg IVPUSH Q4H PRN PRN Reason: Nausea/Vomiting Pantoprazole Sodium (Protonix) 40 mg PO ACBREAKFAST [facility] Last Admin: 05/06/20 06:41 Dose: 40 mg Documented by: Rosuvastatin Calcium (Crestor) 20 mg PO DAILY [facility] Last Admin: 05/06/20 08:48 Dose: 20 mg Documented by: Sodium Chloride (Saline Flush) 10 ml FLUSH Q4H PRN PRN Reason: maintain IV patency Last Admin: 05/04/20 06:54 Dose: 10 ml Documented by:
[2020-05-05] MEDS ORDERED: Insulin Regular, Human 100 Units/ML 10 ML Vial SUBCUT ONE ×2 (18:56→19:35)
[2020-05-05] MEDS ORDERED: Glucagon,Human Recombinant 1 MG Vial IM PRN (18:56)
[2020-05-05] MEDS ORDERED: 50% Dextrose in Water 50 ML Syringe IV PRN (18:56)
[2020-05-05] MEDS ORDERED: LORazepam 2 MG/ML SDV IVPUSH SCH ×2 (21:00)
[2020-05-05] MEDS: Enoxaparin 40 MG/0.4 ML Syringe SUBCUT SCH (21:26)
[2020-05-06] MEDS: Albuterol/Ipratropium 4 GM Inhalation Spray INH SCH ×6 (00:19→13:17)
[2020-05-06 06:37] LABS: CARBON DIOXIDE,CO2 31.8 mmol/L (21.0-32.0); POTASSIUM,K 4.4 mmol/L (3.5-5.1)
[2020-05-06] MEDS: Benzonatate 100 MG Cap PO PRN (06:41)
[2020-05-06] MEDS: Levothyroxine 25 MCG Tab PO SCH (06:41)
[2020-05-06] MEDS: Pantoprazole 40 MG Tab.CR PO SCH (06:41)
[2020-05-06] MEDS: Insulin Aspart 100 Units/ML 3 ML Pen SUBCUT SCH ×2 (08:46→12:36)
[2020-05-06] MEDS: Rosuvastatin 10 MG Tab PO SCH (08:48)
[2020-05-06] MEDS: Gemfibrozil 600 MG Tab PO SCH (08:48)
--- NOTE | 2020-05-06 12:07 | PCM.DCSUM1 ---
<Britany Linton - Last Filed: 05/06/20 13:26> Discharge Summary - Hospital Course Brief History: Pt is a 74 y/o Gentleman with a PMH of HTN, DM, HLD. and Hypothyroidism. Last week Sunday he was seen In [place] for respiratory symptoms of cough, s.o.b and some chest tightness. Pt was then sent home with 10 days of Dexamethasone, and an inhaler. Over the week, symptoms persisted, the cough kept getting worst described as being productive with yellow much/ phlegm. Denies any fever, chills, body aches. States they has recently visited their teenage grandchildren whom also have been found to be covid +. Pt states his symptoms are worst with laying down and relieved with sitting up. States anything he tried taking was not helping with his cough until he was put on Oxyegn on admission since he was found to be sating at 82-84% on R.A Diagnosis: Stroke: No - Discharge Data Discharge Date: 05/06/20 Discharge Disposition: Home, Self-Care 01 Condition: Good - Referral to Home Health Primary Care Physician: PCP None - Discharge Diagnosis/Problem(s) (1) COVID-19 SNOMED Code(s): 353839451 ICD Code: U07.1 - COVID-19 Status: Acute (2) Elevated BUN SNOMED Code(s): 547448304 ICD Code: R79.9 - ABNORMAL FINDING OF BLOOD CHEMISTRY, UNSPECIFIED Status: Acute - Patient Summary/Data Consults: Consultations 05/05/20 10:19 PT Evaluation and Treatment [CONS] Routine Hospital Course: Admitted for AHRF 2/2 COVID. Treated with supplemental oxygen, for a period of time required ICU admission with PIPAP support. Given full course of dexamethasone 10x days, full course of Remdesivir for 5 days, 2 units of Convalescent Plasma and Levaquin for 10 days. Pt is now breathing confortably on room air, has been cleared by physical therapy. Is to closely follow up with his PCP. - Patient Instructions Diet: Heart Healthy Diet, Diabetic Diet Activity: As Tolerated Activity, Other: Cleared per Physical therapy Notify Provider of: Fever Other/Special Instructions: Please Quarantine total 20 days, take Robatussin AC for cough, use Combivent Inhaler every 4 hours as needed. Please follow up with PCP and within the week for post hospital follow up and recheck blood glucose. Please do not hesitate seeing yourself to the nearest hospital in the event ou develop shortness of breath, feel dizzy, or are unable to breath. - Discharge Plan *PRESCRIPTION DRUG MONITORING PROGRAM REVIEWED*: Not Applicable *COPY OF PRESCRIPTION DRUG MONITORING REPORT IN PATIENT SIOBHAN: Not Applicable Prescriptions/Med Rec: Albuterol/Ipratropium [Combivent Respimat] 1 inh INH Q4H 30 Days #1 inhaler Codeine/guaiFENesin [Robitussin AC] 5 ml PO Q4H PRN 14 Days #1 cup PRN Reason: Cough Home Medications: Home Meds Albuterol Sulfate [Albuterol Sulfate Hfa] 2 inh IH Q4H PRN 04/25/20 [History] Codeine/guaiFENesin [Robitussin AC] 04/25/20 [History] Indomethacin 50 mg PO BID 04/25/20 [History] Levothyroxine 25 mcg PO ACBREAKFAST 04/25/20 [History] Metoprolol Succinate [Toprol XL] 25 mg PO DAILY 04/25/20 [History] Niacin 500 mg PO DAILY 04/25/20 [History] dexAMETHasone [Dexamethasone] 2 mg PO DAILY 04/25/20 [History] gemfibroziL [Gemfibrozil] 600 mg PO BID 04/25/20 [History] lisinopriL [Lisinopril] 10 mg PO DAILY 04/25/20 [History] metFORMIN [Glucophage] 500 mg PO BID 04/25/20 [History] Pantoprazole [ProTONIX] 40 mg PO DAILY 04/26/20 [History] Rosuvastatin Calcium 20 mg PO DAILY 04/26/20 [History] Albuterol/Ipratropium [Combivent Respimat] 1 inh INH Q4H 30 Days #1 inhaler 05/06/20 [Rx] Codeine/guaiFENesin [Robitussin AC] 5 ml PO Q4H PRN 14 Days #1 cup 05/06/20 [Rx] Patient Handouts: Albuterol; Ipratropium respiratory inhalation spray (Combivent Respimat), COVID-19 Frequently Asked Questions, COVID-19, Infection Prevention in the Home, Codeine; Guaifenesin oral solution or syrup, Prevent the Spread of COVID-19 if You Are Sick - [facility] Referrals: Tobin Coreas MD [Ordering Only Provider] - (Please get a follow-up appointment once asymptomatic with COVID.) - Discharge Summary/Plan Comment DC Time >30 min.: No - Patient Data Vitals - Most Recent: Last Vital Signs Temp 98.2 F 05/06/20 08:00 Pulse 82 05/06/20 08:00 Resp 18 05/06/20 08:00 BP 120/76 05/06/20 08:00 Pulse Ox 95 05/06/20 08:00 Weight - Most Recent: 82.372 kg I&O - Last 24 hours: Intake & Output 05/05/20 05/06/20 05/06/20 22:59 06:59 14:59 Intake Total 1120 300 Balance 1120 300 Lab Results - Last 24 hrs: Laboratory Results - last 24 hr 05/05/20 05/05/20 05/05/20 Range/Units 12:07 17:16 18:52 WBC (4.0-11.0) K/uL RBC (4.50-5.90) M/uL Hgb (13.0-17.0) g/dL Hct (38.0-50.0) % MCV (80.0-98.0) fL MCH (27.0-32.0) pg MCHC (31.0-37.0) g/dL RDW Std Deviation (28.0-62.0) fl RDW Coeff of [place] (11.0-15.0) % Plt Count (150-400) K/uL MPV (7.40-12.00) fL Neut % (Auto) (48.0-80.0) % Lymph % (Auto) (16.0-40.0) % [place] % (Auto) (0.0-15.0) % Eos % (Auto) (0.0-7.0) % Baso % (Auto) (0.0-1.5) % Neut # (Auto) (1.4-5.7) K/uL Lymph # (Auto) (0.6-2.4) K/uL [place] # (Auto) (0.0-0.8) K/uL Eos # (Auto) (0.0-0.7) K/uL Baso # (Auto) (0.0-0.1) K/uL Nucleated RBC % /100WBC Nucleated RBCs # K/uL Sodium (136-148) mmol/L Potassium (3.5-5.1) mmol/L Chloride (98-107) mmol/L Carbon Dioxide (21.0-32.0) mmol/L BUN (7.0-18.0) mg/dL Creatinine (0.8-1.3) mg/dL Est Cr Clr Drug Dosing mL/min Estimated GFR (MDRD) ml/min Glucose (74-106) mg/dL POC Glucose 403 H 443 H 408 H (60-110) mg/dL Calcium (8.5-10.1) mg/dL Phosphorus (2.6-4.7) mg/dL Total Bilirubin (0.2-1.0) mg/dL AST (15-37) IU/L ALT (14-63) IU/L Alkaline Phosphatase (46-116) U/L Total Protein (6.4-8.2) g/dL Albumin (3.4-5.0) g/dL Globulin (2.6-4.0) g/dL Albumin/Globulin Ratio (0.9-1.6) 05/06/20 05/06/20 05/06/20 Range/Units 05:49 05:49 06:43 WBC 12.10 H (4.0-11.0) K/uL RBC 5.44 (4.50-5.90) M/uL Hgb 15.7 (13.0-17.0) g/dL Hct 45.5 (38.0-50.0) % MCV 83.6 (80.0-98.0) fL MCH 28.9 (27.0-32.0) pg MCHC 34.5 (31.0-37.0) g/dL RDW Std Deviation 39.8 (28.0-62.0) fl RDW Coeff of [place] 13 (11.0-15.0) % Plt Count 199 (150-400) K/uL MPV 8.60 (7.40-12.00) fL Neut % (Auto) 83.5 H (48.0-80.0) % Lymph % (Auto) 7.1 L (16.0-40.0) % [place] % (Auto) 9.2 (0.0-15.0) % Eos % (Auto) 0.1 (0.0-7.0) % Baso % (Auto) 0.1 (0.0-1.5) % Neut # (Auto) 10.1 H (1.4-5.7) K/uL Lymph # (Auto) 0.9 (0.6-2.4) K/uL [place] # (Auto) 1.1 H (0.0-0.8) K/uL Eos # (Auto) 0.0 (0.0-0.7) K/uL Baso # (Auto) 0.0 (0.0-0.1) K/uL Nucleated RBC % 0.0 /100WBC Nucleated RBCs # 0 K/uL Sodium 134 L (136-148) mmol/L Potassium 4.4 (3.5-5.1) mmol/L Chloride 97 L (98-107) mmol/L Carbon Dioxide 31.8 (21.0-32.0) mmol/L BUN 31 H (7.0-18.0) mg/dL Creatinine 1.5 H (0.8-1.3) mg/dL Est Cr Clr Drug Dosing 45.29 mL/min Estimated GFR (MDRD) 45.9 ml/min Glucose 148 H (74-106) mg/dL POC Glucose 153 H (60-110) mg/dL Calcium 9.1 (8.5-10.1) mg/dL Phosphorus 3.9 (2.6-4.7) mg/dL Total Bilirubin 1.0 (0.2-1.0) mg/dL AST 17 (15-37) IU/L ALT 30 (14-63) IU/L Alkaline Phosphatase 72 (46-116) U/L Total Protein 7.6 (6.4-8.2) g/dL Albumin 3.0 L (3.4-5.0) g/dL Globulin 4.6 H (2.6-4.0) g/dL Albumin/Globulin Ratio 0.7 L (0.9-1.6) 11/12/20 Range/Units 11:59 WBC (4.0-11.0) K/uL RBC (4.50-5.90) M/uL Hgb (13.0-17.0) g/dL Hct (38.0-50.0) % MCV (80.0-98.0) fL MCH (27.0-32.0) pg MCHC (31.0-37.0) g/dL RDW Std Deviation (28.0-62.0) fl RDW Coeff of [place] (11.0-15.0) % Plt Count (150-400) K/uL MPV (7.40-12.00) fL Neut % (Auto) (48.0-80.0) % Lymph % (Auto) (16.0-40.0) % [place] % (Auto) (0.0-15.0) % Eos % (Auto) (0.0-7.0) % Baso % (Auto) (0.0-1.5) % Neut # (Auto) (1.4-5.7) K/uL Lymph # (Auto) (0.6-2.4) K/uL [place] # (Auto) (0.0-0.8) K/uL Eos # (Auto) (0.0-0.7) K/uL Baso # (Auto) (0.0-0.1) K/uL Nucleated RBC % /100WBC Nucleated RBCs # K/uL Sodium (136-148) mmol/L Potassium (3.5-5.1) mmol/L Chloride (98-107) mmol/L Carbon Dioxide (21.0-32.0) mmol/L BUN (7.0-18.0) mg/dL Creatinine (0.8-1.3) mg/dL Est Cr Clr Drug Dosing mL/min Estimated GFR (MDRD) ml/min Glucose (74-106) mg/dL POC Glucose 251 H (60-110) mg/dL Calcium (8.5-10.1) mg/dL Phosphorus (2.6-4.7) mg/dL Total Bilirubin (0.2-1.0) mg/dL AST (15-37) IU/L ALT (14-63) IU/L Alkaline Phosphatase (46-116) U/L Total Protein (6.4-8.2) g/dL Albumin (3.4-5.0) g/dL Globulin (2.6-4.0) g/dL Albumin/Globulin Ratio (0.9-1.6) Med Orders - Current: Current Medications Acetaminophen (Tylenol) 650 mg PO Q4H PRN PRN Reason: Pain (Mild 1-3)/fever Last Admin: 05/01/20 16:05 Dose: 650 mg Documented by: Albuterol/Ipratropium (Combivent Respimat) 0 gm INH Q4H [facility] Last Admin: 05/06/20 09:24 Dose: 1 puff Documented by: Benzonatate (Tessalon Perles) 100 mg PO TID PRN PRN Reason: Cough Last Admin: 05/06/20 06:41 Dose: 100 mg Documented by: Dextrose/Water (Dextrose 50% In Water) 50 ml IV ASDIRECTED PRN PRN Reason: Hypoglycemia Enoxaparin Sodium (Lovenox) 40 mg SUBCUT BEDTIME [facility] Last Admin: 05/05/20 21:26 Dose: 40 mg Documented by: Gemfibrozil (Lopid) 600 mg PO BID [facility] Last Admin: 05/06/20 08:48 Dose: 600 mg Documented by: Glucagon (Glucagen) 1 mg IM ASDIRECTED PRN PRN Reason: Hypoglycemia Guaifenesin/Codeine Phosphate (Robitussin Ac) 5 ml PO Q4H PRN PRN Reason: Cough Insulin Aspart (Novolog) 0 unit SUBCUT TIDAC [facility]; Protocol Last Admin: 05/06/20 08:46 Dose: 3 units Documented by: Levothyroxine Sodium (Levothyroxine) 25 mcg PO ACBREAKFAST [facility] Last Admin: 05/06/20 06:41 Dose: 25 mcg Documented by: Lorazepam (Ativan) 1 mg IVPUSH BEDTIME [facility] Last Admin: 05/05/20 21:26 Dose: 1 mg Documented by: Ondansetron HCl (Zofran) 4 mg IVPUSH Q4H PRN PRN Reason: Nausea/Vomiting Pantoprazole Sodium (Protonix) 40 mg PO ACBREAKFAST [facility] Last Admin: 05/06/20 06:41 Dose: 40 mg Documented by: Rosuvastatin Calcium (Crestor) 20 mg PO DAILY [facility] Last Admin: 05/06/20 08:48 Dose: 20 mg Documented by: Sodium Chloride (Saline Flush) 10 ml FLUSH Q4H PRN PRN Reason: maintain IV patency Last Admin: 05/04/20 06:54 Dose: 10 ml Documented by: Discontinued Medications Dexamethasone (Dexamethasone) 6 mg PO DAILY@1800 [facility] Last Admin: 05/03/20 17:51 Dose: 6 mg Documented by: Dexamethasone (Dexamethasone) 6 mg PO DAILY@1000 [facility] Last Admin: 05/05/20 09:03 Dose: 6 mg Documented by: Dextrose/Water (Dextrose 50% In Water) 50 ml IV ASDIRECTED PRN PRN Reason: Hypoglycemia Enoxaparin Sodium (Lovenox) 40 mg SUBCUT BEDTIME [facility] Stop: 04/25/20 21:01 Last Admin: 04/25/20 22:10 Dose: 40 mg Documented by: Furosemide (Lasix) 40 mg IVPUSH NOW ONE Stop: 05/02/20 12:34 Last Admin: 05/02/20 13:12 Dose: 40 mg Documented by: Furosemide (Lasix) 20 mg IVPUSH ONETIME ONE Stop: 05/04/20 09:43 Last Admin: 05/04/20 09:57 Dose: 20 mg Documented by: Glucagon (Glucagen) 1 mg IM ASDIRECTED PRN PRN Reason: Hypoglycemia Levofloxacin/Dextrose 750 mg/ (Premix) 150 mls @ 100 mls/hr IV Q24H [facility] Last Admin: 05/04/20 20:10 Dose: 80 mls/hr Documented by: Remdesivir 200 mg/ Sodium (Chloride) 250 mls @ 250 mls/hr IV ONETIME ONE Stop: 04/25/20 19:59 Last Admin: 04/25/20 22:06 Dose: 250 mls/hr Documented by: Remdesivir 100 mg/ Sodium (Chloride) 100 mls @ 100 mls/hr IV Q24H [facility] Stop: 04/29/20 19:59 Last Admin: 04/29/20 18:41 Dose: 100 mls/hr Documented by: Lactated Ringer's (Ringers, Lactated) 1,000 mls @ 999 mls/hr IV .BOLUS ONE Stop: 04/25/20 20:23 Last Admin: 04/25/20 22:03 Dose: 999 mls/hr Documented by: Lactated Ringer's (Ringers, Lactated) 1,000 mls @ 999 mls/hr IV .BOLUS ONE Stop: 05/03/20 00:37 Last Admin: 05/02/20 23:49 Dose: 999 mls/hr Documented by: Insulin Aspart (Novolog) 0 unit SUBCUT TIDAC [facility]; Protocol Last Admin: 05/03/20 09:15 Dose: 5 units Documented by: Insulin Human Regular (Novolin R) 20 unit SUBCUT ONETIME ONE; Protocol Stop: 05/05/20 18:57 Last Admin: 05/05/20 20:18 Dose: 20 units Documented by: Insulin Human Regular (Novolin R) 20 unit SUBCUT ONETIME ONE; Protocol Stop: 05/05/20 19:36 Last Admin: 05/05/20 21:21 Dose: Not Given Documented by: Lisinopril (Prinivil) 10 mg PO DAILY [facility] Last Admin: 05/03/20 09:20 Dose: 10 mg Documented by: Lorazepam (Ativan) 1 mg IVPUSH BEDTIME ONE Stop: 05/04/20 22:21 Last Admin: 05/04/20 21:19 Dose: 1 mg Documented by: Lorazepam (Ativan) 4 mg IVPUSH BEDTIME [facility] Melatonin (Melatonin) 3 mg PO BEDTIME PRN PRN Reason: Sleep Last Admin: 05/03/20 22:19 Dose: 3 mg Documented by: Metformin HCl (Glucophage) 500 mg PO BID [facility] Metoprolol Succinate (Toprol Xl) 25 mg PO DAILY [facility] Last Admin: 04/29/20 09:33 Dose: 25 mg Documented by: Niacin (Niacin) 500 mg PO DAILY [facility] Last Admin: 05/03/20 09:19 Dose: 500 mg Documented by: <Derian Castro - Last Filed: 05/09/20 19:08> Discharge Summary - Referral to Home Health Primary Care Physician: PCP None - Patient Summary/Data Consults: Consultations 05/05/20 10:19 PT Evaluation and Treatment [CONS] Routine - Patient Data Vitals - Most Recent: Last Vital Signs Temp 36.8 C 05/06/20 12:00 Pulse 84 05/06/20 12:00 Resp 18 05/06/20 12:00 BP 122/78 05/06/20 12:00 Pulse Ox 94 L 05/06/20 12:00 Med Orders - Current: Current Medications Discontinued Medications Acetaminophen (Tylenol) 650 mg PO Q4H PRN PRN Reason: Pain (Mild 1-3)/fever Last Admin: 05/01/20 16:05 Dose: 650 mg Documented by: Albuterol/Ipratropium (Combivent Respimat) 0 gm INH Q4H [facility] Last Admin: 05/06/20 13:17 Dose: 1 puff Documented by: Benzonatate (Tessalon Perles) 100 mg PO TID PRN PRN Reason: Cough Last Admin: 05/06/20 06:41 Dose: 100 mg Documented by: Dexamethasone (Dexamethasone) 6 mg PO DAILY@1800 [facility] Last Admin: 05/03/20 17:51 Dose: 6 mg Documented by: Dexamethasone (Dexamethasone) 6 mg PO DAILY@1000 [facility] Last Admin: 05/05/20 09:03 Dose: 6 mg Documented by: Dextrose/Water (Dextrose 50% In Water) 50 ml IV ASDIRECTED PRN PRN Reason: Hypoglycemia Dextrose/Water (Dextrose 50% In Water) 50 ml IV ASDIRECTED PRN PRN Reason: Hypoglycemia Enoxaparin Sodium (Lovenox) 40 mg SUBCUT BEDTIME [facility] Last Admin: 05/05/20 21:26 Dose: 40 mg Documented by: Enoxaparin Sodium (Lovenox) 40 mg SUBCUT BEDTIME [facility] Stop: 04/25/20 21:01 Last Admin: 04/25/20 22:10 Dose: 40 mg Documented by: Furosemide (Lasix) 40 mg IVPUSH NOW ONE Stop: 05/02/20 12:34 Last Admin: 05/02/20 13:12 Dose: 40 mg Documented by: Furosemide (Lasix) 20 mg IVPUSH ONETIME ONE Stop: 05/04/20 09:43 Last Admin: 05/04/20 09:57 Dose: 20 mg Documented by: Gemfibrozil (Lopid) 600 mg PO BID [facility] Last Admin: 05/06/20 08:48 Dose: 600 mg Documented by: Glucagon (Glucagen) 1 mg IM ASDIRECTED PRN PRN Reason: Hypoglycemia Glucagon (Glucagen) 1 mg IM ASDIRECTED PRN PRN Reason: Hypoglycemia Guaifenesin/Codeine Phosphate (Robitussin Ac) 5 ml PO Q4H PRN PRN Reason: Cough Levofloxacin/Dextrose 750 mg/ (Premix) 150 mls @ 100 mls/hr IV Q24H [facility] Last Admin: 05/04/20 20:10 Dose: 80 mls/hr Documented by: Remdesivir 200 mg/ Sodium (Chloride) 250 mls @ 250 mls/hr IV ONETIME ONE Stop: 04/25/20 19:59 Last Admin: 04/25/20 22:06 Dose: 250 mls/hr Documented by: Remdesivir 100 mg/ Sodium (Chloride) 100 mls @ 100 mls/hr IV Q24H [facility] Stop: 04/29/20 19:59 Last Admin: 04/29/20 18:41 Dose: 100 mls/hr Documented by: Lactated Ringer's (Ringers, Lactated) 1,000 mls @ 999 mls/hr IV .BOLUS ONE Stop: 04/25/20 20:23 Last Admin: 04/25/20 22:03 Dose: 999 mls/hr Documented by: Lactated Ringer's (Ringers, Lactated) 1,000 mls @ 999 mls/hr IV .BOLUS ONE Stop: 05/03/20 00:37 Last Admin: 05/02/20 23:49 Dose: 999 mls/hr Documented by: [facility]; Protocol Last Admin: 05/03/20 09:15 Dose: 5 units Documented by: Insulin Aspart (Novolog) [facility]; Protocol Last Admin: 05/06/20 12:36 Dose: 9 units Documented by: Insulin Human Regular (Novolin R) 20 unit SUBCUT ONETIME ONE; Protocol Stop: 05/05/20 18:57 Last Admin: 05/05/20 20:18 Dose: 20 units Documented by: Insulin Human Regular (Novolin R) 20 unit SUBCUT ONETIME ONE; Protocol Stop: 05/05/20 19:36 Last Admin: 05/05/20 21:21 Dose: Not Given Documented by: Levothyroxine Sodium (Levothyroxine) 25 mcg PO ACBREAKFAST [facility] Last Admin: 05/06/20 06:41 Dose: 25 mcg Documented by: Lisinopril (Prinivil) 10 mg PO DAILY [facility] Last Admin: 05/03/20 09:20 Dose: 10 mg Documented by: Lorazepam (Ativan) 1 mg IVPUSH BEDTIME ONE Stop: 05/04/20 22:21 Last Admin: 11/10/20 21:19 Dose: 1 mg Documented by: Lorazepam (Ativan) 4 mg IVPUSH BEDTIME [facility] Lorazepam (Ativan) 1 mg IVPUSH BEDTIME [facility] Last Admin: 05/05/20 21:26 Dose: 1 mg Documented by: Melatonin (Melatonin) 3 mg PO BEDTIME PRN PRN Reason: Sleep Last Admin: 05/03/20 22:19 Dose: 3 mg Documented by: Metformin HCl (Glucophage) 500 mg PO BID [facility] Metoprolol Succinate (Toprol Xl) 25 mg PO DAILY [facility] Last Admin: 04/29/20 09:33 Dose: 25 mg Documented by: Niacin (Niacin) 500 mg PO DAILY [facility] Last Admin: 05/03/20 09:19 Dose: 500 mg Documented by: Ondansetron HCl (Zofran) 4 mg IVPUSH Q4H PRN PRN Reason: Nausea/Vomiting Pantoprazole Sodium (Protonix) 40 mg PO ACBREAKFAST [facility] Last Admin: 05/06/20 06:41 Dose: 40 mg Documented by: Rosuvastatin Calcium (Crestor) 20 mg PO DAILY [facility] Last Admin: 05/06/20 08:48 Dose: 20 mg Documented by: Sodium Chloride (Saline Flush) 10 ml FLUSH Q4H PRN PRN Reason: maintain IV patency Last Admin: 05/04/20 06:54 Dose: 10 ml Documented by: - Free Text/Narrative Note: I have seen and evaluated the patient. I have discussed findings and treatment plan with resident. I agree with the assessment and plan in the following note.
== END 2020-05-06 14:30 | disposition home or self-care (01) | DRG 179 ==
LOC: MW.MS 17:29 → UNDOADMIN 17:29 → MW.MS 04-29 20:59 → MW.ICU 04-29 20:59 → MW.MS 05-04 09:19 → MW.ICU 05-04 09:19
PROVIDERS: ADMIT Student in an Organized Health Care Education/Training Program; ATTEND Student in an Organized Health Care Education/Training Program
PROC: XW033E5 Introduction of Remdesivir Anti-infective into Peripheral Vein, Percutaneous Approach, New Technology Group 5 (ICD-10-PCS; principal; 2020-05-04)
PROC: XW13325 Transfusion of Convalescent Plasma (Nonautologous) into Peripheral Vein, Percutaneous Approach, New Technology Group 5 (ICD-10-PCS; 2020-05-04)
DX: U07.1 COVID-19 (principal); I10 Essential (primary) hypertension; E11.9 Type 2 diabetes mellitus without complications; E78.5 Hyperlipidemia, unspecified; E03.9 Hypothyroidism, unspecified; Z79.899 Other long term (current) drug therapy
CPT/HCPCS: 36415; 36430; 36600; 71045; 71045-26; 80053; 82803; 82962; 83605; 83735; 84100; 84484; 85025; 85379; 86900; 86901; 94640; 94660; 97161-GP; 99219; 99224; 99225; 99232; 99238; A9270-GY; J1650; J1815-GY; J1940; J1956; J2060; J7050; J7120; J8540; P9017